=== PATIENT | female | born 1935 | race Caucasian/White ===

== ENCOUNTER 2018-08-24 23:01 | Inpatient (IN) ==
[2018-08-24] MEDS ORDERED: SODIUM CHLORIDE 0.9% 1000ML 500 ML IV ONE (23:15)
[2018-08-24] MEDS ORDERED: ALBUT/IPRATROP 3MG/0.5MG NEB 3 ML VIAL NEB STA (23:15)
[2018-08-24 23:41] LABS: Eosinophils # (auto) 0.18 K/uL (0-0.5); Eosinophils % (auto) 1.8 %; Hematocrit (blood only) 43.4 % (37-47); Hemoglobin 13.5 g/dL (12.0-16.0); Immature Granulocytes # (auto) 0.02 K/uL (0.00-0.02); Immature Granulocytes % (auto) 0.2 %; Lymphocytes # (auto) 0.65 K/uL (1.2-3.4); Lymphocytes % (auto) 6.6 %; Mean Corpuscular Hgb Conc 31.1 g/dL (32-36); Mean Corpuscular Volume 100.5 fL (80-100); Mean Platelet Volume 12.7 fL (7.4-10.4); Monocytes # (auto) 0.69 K/uL (0.11-0.59); Monocytes % (auto) 7.1 %; Neutrophils # (auto) 8.24 K/uL (1.4-6.5); Neutrophils % (auto) 84.3 %; Platelet Count 164 K/uL (130-400); RDW Coefficient of Variation 14.6 % (11.5-14.5); RDW Standard Deviation 53.4 fL (36.4-46.3); Red Blood Count 4.32 M/uL (4.2-5.4); White Blood Count 9.78 K/uL (4.8-10.8)
[2018-08-24 23:55] LABS: Base Excess VBG 7.2 mEq/L; HCO3 VBG 35 mmol/L; Oxygen Saturation VBG 94.7 %; PCO2 VBG 63 mmHg (38-50); PO2 VBG 77 mmHg; pH VBG 7.36 (7.36-7.41)
[2018-08-24 23:55] LABS: INR 1.2 (0.9-1.1)
[2018-08-24 23:59] LABS: Alanine Aminotransferase 13 U/L (12-78); Albumin Level 2.4 gm/dl (3.4-5.0); Aspartate Aminotransferase 17 U/L (15-37); BUN Creatinine Ratio 15.5 (10-20); Bilirubin Direct 0.2 mg/dl (0-0.2); Blood Urea Nitrogen 14 mg/dl (7-18); Calcium 7.8 mg/dl (8.5-10.1); Carbon Dioxide 34 mmol/L (21-32); Chloride 104 mmol/L (98-107); Creatinine Clr Calc Pharmacy 37.8 ml/min; Est GFR (African American) 65.4; Est GFR (Non-African American) 56.4; Glucose 109 mg/dl (70-99); Magnesium 1.8 mg/dl (1.8-2.4); Potassium 3.9 mmol/L (3.5-5.1); Sodium 143 mmol/L (136-145)
[2018-08-25 00:03] LABS: Alkaline Phosphatase 54 U/L (45-117); Bilirubin,Total 0.5 mg/dl (0.2-1); Total Protein 6.4 gm/dl (6.4-8.2)
[2018-08-25 00:13] LABS: Influenza A virus by PCR Neg for Influ A (Neg); Influenza B virus by PCR Neg for Influ B (Neg); NT Pro B Type Natriuretic Pept 9374 pg/ml (0-1800); Troponin I < 0.015 ng/ml (0-0.045)
[2018-08-25 00:58] LABS: Appearance Urine Clear (Clear); Bacteria Urine Automated Negative (Negative); Bilirubin Urine Negative (Negative); Blood Urine Negative (Negative); Color Urine Yellow; Epithelial Cell Urine Auto 20-30 /lpf (0-5); Glucose Urine UA Negative (Negative); Ketones Urine Negative (Negative); Leukocyte Esterase Urine 2+ (Negative); Nitrite Urine Negative (Negative); Protein Urine Negative (Negative); RBC Urine Automated 0-4 /hpf (0-4); Specific Gravity Urine 1.018 (1.000-1.030); Urobilinogen Urine Negative (Negative); WBC Urine Automated >30 /hpf (0-5); pH Urine 6.5 (4.5-7.5)
[2018-08-25] MEDS ORDERED: OPTIRAY 320 125ml IV PRN (01:00)
[2018-08-25 01:18] LABS: Cast Urine Automated 0 /lpf (0-5)
[2018-08-25] MEDS ORDERED: PIPERACILL/TAZOBAC CONSULT ACTIVE PRN ×2 (02:19→02:52)
[2018-08-25] MEDS ORDERED: PIPERACILLIN/TAZOBACTAM 3.375 GM/115 ML BAG IV ONE (02:30)
--- NOTE | 2018-08-25 02:35 | History & Physical Report ---
Date of Service August 25, 2018 Assessment & Plan (1) Pneumonia: Recent influenza A and aspiration pneumonia. Increasing dyspnea. Tonight's chest x-ray and CT demonstrate consolidation of the right lower lobe, loculated right pleural effusion, evidence of aspiration in the right middle lobe and right lower lobe bronchi. Nasal MRSA swab positive. Does not appear to be septic. Rx with doxycycline and IV piperacillin / tazobactam. (2) Pleural effusion: CT demonstrates moderate right loculated pleural effusion. Recent and possibly recurrent pneumonia. May have parapneumonic effusion or empyema. Consult Pulmonary Medicine. (3) Aspiration into airway: Chronic aspiration due to previous strokes. CT tonight suggests aspiration into the right middle lobe and right lower lobe bronchi. Has been evaluated by SEA[employer] MANAGER on multiple occasions. Consideration of PEG placement discussed in the past and patient indicated that she was not interested. She prefers to continue eating and drinking, accepting the risk of aspiration. Continue aspiration precautions, thickened liquids. (4) Chronic respiratory failure with hypoxia, on home O2 therapy: Continue supplemental O2, titrate as necessary. (5) Atrial fibrillation: Rate controlled with metoprolol and amiodarone. Continue anticoagulation with apixaban. (6) Ischemic stroke: History of ischemic strokes. Chronic atrial fibrillation. Continue anticoagulation with apixaban. (7) HTN (hypertension): Continue metoprolol. Follow and titrate therapy. (8) CKD (chronic kidney disease), stage III: Serum creatinine 0.8. Follow. (9) Hypothyroidism: Continue levothyroxine. (10) DVT prophylaxis: Continue apixaban-hold for any invasive procedures. (11) Discharge planning issues: Anticipated return to [facility] under the care of Dr. Hale. History of Present Illness Chief Complaint: cough, SOB Primary Care Provider: [facility] 82-year-old female followed by Dr. Hale at [facility]. History of chronic atrial fibrillation, CHF, stroke, chronic aspiration, and other problems noted below. Admitted to [facility] on 08/11/18 with influenza A and right lower lobe pneumonia. Received oseltamavir for influenza and IV antibiotics for suspected aspiration pneumonia. Patient known to have chronic aspiration due to previous strokes and has undergone evaluation by SEAFOOD MANAGER in the past. She indicated that she is not interested in PEG feedings and preferred to eat and drink with the understanding that she would probably continue to have aspiration. Discharged back to [facility] on 08/15/18 on amoxicillin/clavulanic acid and prednisone taper. Chronic hypoxic respiratory failure, back to baseline oxygen requirement of 2 L/min by time of discharge. Sent to the ED tonight because of cough and increasing shortness of breath. Oxygen flow rate had to be increased to 4 L/min to maintain adequate oxy genation. Patient denies fever. Cough is nonproductive. No chest pain. Patient indicates that she occasionally coughs when she eats and drinks. Allergies Allergy/AdvReac Type Severity Reaction Status Date / Time levofloxacin AdvReac SEE BELOW Verified 08/25/18 00:10 Home Medications Home Medications Medication Instructions Recorded Confirmed Type Desitin 1 applic TOPICAL BID 08/11/18 08/24/18 History acetaminophen 650 mg NH Q6H PRN MDD 2500mg/24hr 08/11/18 08/25/18 History acetaminophen [Tylenol] 325 mg PO Q6H PRN MDD 2gm/24hr 08/11/18 08/25/18 History amiodarone 200 mg PO QAM 08/11/18 08/24/18 History apixaban 2.5 mg PO QAM 08/11/18 08/24/18 History atorvastatin 10 mg PO HS 08/11/18 08/24/18 History denosumab 60 mg SUBCUT Q6M 08/11/18 08/24/18 History diclofenac sodium 1 applic TOPICAL QS 08/11/18 08/24/18 History ergocalciferol (vitamin D2) 50,000 unit PO WK 08/11/18 08/24/18 History [Vitamin D2] ipratropium-albuterol 2.5 mg INHALATION QID 08/11/18 08/24/18 History levothyroxine 75 mcg PO QAM 08/11/18 08/24/18 History metoprolol tartrate 25 mg PO AMHS 08/11/18 08/24/18 History metoprolol tartrate 50 mg PO AMHS 08/11/18 08/24/18 History ranitidine HCl 150 mg PO HS 08/11/18 08/24/18 History sennosides-docusate sodium 1 tab PO BID 08/11/18 08/24/18 History [Senna-S] sertraline 25 mg PO HS 08/11/18 08/24/18 History sodium chloride [Saline Nasal] 2 spray INTRANASAL HS 08/11/18 08/24/18 History terbinafine 1 applic TOPICAL HS 08/11/18 08/24/18 History white petrolatum [Vaseline] 1 applic TOPICAL HS 08/11/18 08/24/18 History prednisone 10 mg PO UD #12 tab 08/15/18 08/24/18 Rx acetaminophen [Tylenol] 325 mg PO Q6H PRN MDD 3g/24hr 08/24/18 08/24/18 History guaifenesin [Siltussin SA] 10 mg PO Q4 PRN 08/24/18 08/24/18 History promethazine 25 mg NH Q8 PRN 08/24/18 08/24/18 History acetaminophen [Tylenol] 650 mg PO Q8 PRN MDD 2000mg/24hr 08/25/18 08/25/18 History albuterol sulfate 2.5 mg CONTINUOUS NEBULIZATION 08/25/18 08/25/18 History .EVERY 2 HOURS PRN alum-mag hydroxide-simeth [Antacid] 30 ml PO Q4 PRN 08/25/18 08/25/18 History amoxicillin 2,000 mg PO UD PRN 08/25/18 08/25/18 History Past Med/Surg History Medical History Chronic respiratory failure with hypoxia, on home O2 therapy (Chronic) CKD (chronic kidney disease), stage III (Chronic) Dementia (Chronic) Depression (Chronic) GERD (gastroesophageal reflux disease) (Chronic) Hypothyroidism (Chronic) Atrial fibrillation (Chronic) HTN (hypertension) (Chronic) Dyslipidemia (Chronic) Aspiration pneumonia (Resolved 07/30/13) Ischemic stroke (Chronic 02/02/12) Aspiration into airway (Chronic) History of breast cancer (Chronic) Bronchitis Surgical History History of breast surgery (Resolved) Status post mastectomy (Chronic) Family History Other Family history non-contributory Social History Preferred Language: Faroese Communication Ability: jose miguel ventura Communication Ability Comment: hx right sided weakness from CVA, Left arm restricted (hx breast CA), 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 Right sided weakness, garbled speech-thick liq) Feels Safe at Home: Yes Safety Concerns: Feels Safe At This Time Smoking Status: Never smoker Hx Alcohol Use: No Hx Substance Use: No Review of Systems Constitutional: no fever Eyes: no diplopia and no worsening vision Ear, Nose, Mouth, Throat: no nasal congestion, no sinus pain/pressure and no sore throat Respiratory: as per Subjective / HPI Cardiovascular: no chest pain and no edema Gastrointestinal: no nausea, no vomiting, no constipation, no diarrhea/loose stools, no blood in stools and no melena Genitourinary (Female): no dysuria and no hematuria Musculoskeletal: + joint pain; no myalgia Integumentary: no rash and no new lesions Neurologic: + localized weakness (residual weakness RUE and RLE from prior strokes); no headache(s) Endocrine: no polydipsia and no polyuria Hematologic / Lymphatic: no easy bleeding, no easy bruising and no lymphadenopathy Physical Exam Vital Signs (Past 24 Hours): Last Vital Signs Temp 36.6 C 08/24/18 23:11 Pulse 92 H 08/25/18 02:23 Resp 22 08/25/18 02:23 BP 144/83 H 08/25/18 02:23 Pulse Ox 98 08/25/18 02:23 Constitutional: + ill appearing and + thin; no acute distress Eyes: PERRL, conjunctivae normal, anicteric sclerae ENMT: external ear and nose normal, oropharynx normal Mouth: no dentition abnormality (poor dentition) Neck: trachea midline, no thyromegaly Respiratory: Auscultation: + crackles (right base) and + wheezes (diffuse, moderate) Cardiovascular: Rate/Rhythm: + abnormal rhythm (irregularly irregular) Heart Sounds: no gallop, no murmur and no cardiac rub Vessels: + JVD; + abnormal peripheral pulses (pedal pulses diminished) Extremities: + abnormal capillary refill (bilat toes 2-3 sec), no calf tenderness and no edema Gastrointestinal (Abdomen): normal bowel sounds, soft, nontender, no hepatosplenomegaly Musculoskeletal: Head/Neck/Chest: neck supple Extremities: + abnormal strength (RUE 4/5, RLE 4/5), no cyanosis and no clubbing Skin: no rashes, warm and dry Neurologic: PERRL, EOMI no facial palsy no dysarthria or aphasia motor strength as noted above patellar DTR's 1/2 bilat plantar reflexes upgoing bilat Psychiatric: Orientation: alert and oriented x 3 Affect: euthymic affect Lymphatic: no cervical lymphadenopathy Results & Data Laboratory Results Laboratory Results - last 24 hr 08/24/18 08/24/18 08/24/18 23:20 23:20 23:20 WBC 9.78 RBC 4.32 Hgb 13.5 Hct 43.4 MCV 100.5 H MCH 31.3 MCHC 31.1 L RDW Std Deviation 53.4 H RDW Coeff of Gregory 14.6 H Plt Count 164 MPV 12.7 H Immature Gran % (Auto) 0.2 Neut % (Auto) 84.3 Lymph % (Auto) 6.6 [place] % (Auto) 7.1 Eos % (Auto) 1.8 Baso % (Auto) 0.0 Immature Gran # (Auto) 0.02 Neut # (Auto) 8.24 H Lymph # (Auto) 0.[address] [place] # (Auto) 0.69 H Eos # (Auto) 0.18 Baso # (Auto) 0.00 PT 12.0 INR 1.2 H VBG pH VBG pCO2 VBG pO2 VBG HCO3 VBG O2 Saturation VBG Base Excess Sodium 143 Potassium 3.9 Chloride 104 Carbon Dioxide 34 H Anion Gap 5.0 BUN 14 Creatinine 0.93 Est Cr Clr Drug Dosing 37.8 Est GFR ( Amer) 65.4 Est GFR (Non-Af Amer) 56.4 BUN/Creatinine Ratio 15.5 Glucose 109 H Lactate Calcium 7.8 L Magnesium 1.8 Total Bilirubin 0.5 Direct Bilirubin 0.2 AST 17 ALT 13 Alkaline Phosphatase 54 Troponin I < 0.015 NT-Pro-B Natriuret Pep 9374 H Total Protein 6.4 Albumin 2.4 L Lipase 91 Urine Color Urine Appearance Urine pH Ur Specific [place] Urine Protein Urine Glucose (UA) Urine Ketones Urine Blood Urine Nitrite Urine Bilirubin Urine Urobilinogen Ur Leukocyte Esterase Urine WBC (Auto) Urine RBC (Auto) U Hyaline Cast (Auto) U Epithel Cells (Auto) Urine Bacteria (Auto) Urine Yeast Influenza Type A (PCR) Influenza Type B (PCR) 03/04/19 03/04/19 03/04/19 23:20 23:20 23:40 WBC RBC Hgb Hct MCV MCH MCHC RDW Std Deviation RDW Coeff of Gregory Plt Count MPV Immature Gran % (Auto) Neut % (Auto) Lymph % (Auto) [place] % (Auto) Eos % (Auto) Baso % (Auto) Immature Gran # (Auto) Neut # (Auto) Lymph # (Auto) [place] # (Auto) Eos # (Auto) Baso # (Auto) PT INR VBG pH 7.36 VBG pCO2 63 H VBG pO2 77 VBG HCO3 35 VBG O2 Saturation 94.7 VBG Base Excess 7.2 Sodium Potassium Chloride Carbon Dioxide Anion Gap BUN Creatinine Est Cr Clr Drug Dosing Est GFR ( Amer) Est GFR (Non-Af Amer) BUN/Creatinine Ratio Glucose Lactate 0.8 Calcium Magnesium Total Bilirubin Direct Bilirubin AST ALT Alkaline Phosphatase Troponin I NT-Pro-B Natriuret Pep Total Protein Albumin Lipase Urine Color Urine Appearance Urine pH Ur Specific [place] Urine Protein Urine Glucose (UA) Urine Ketones Urine Blood Urine Nitrite Urine Bilirubin Urine Urobilinogen Ur Leukocyte Esterase Urine WBC (Auto) Urine RBC (Auto) U Hyaline Cast (Auto) U Epithel Cells (Auto) Urine Bacteria (Auto) Urine Yeast Influenza Type A (PCR) Neg for Influ A Influenza Type B (PCR) Neg for Influ B 08/25/18 00:38 WBC RBC Hgb Hct MCV MCH MCHC RDW Std Deviation RDW Coeff of Gregory Plt Count MPV Immature Gran % (Auto) Neut % (Auto) Lymph % (Auto) [place] % (Auto) Eos % (Auto) Baso % (Auto) Immature Gran # (Auto) Neut # (Auto) Lymph # (Auto) [place] # (Auto) Eos # (Auto) Baso # (Auto) PT INR VBG pH VBG pCO2 VBG pO2 VBG HCO3 VBG O2 Saturation VBG Base Excess Sodium Potassium Chloride Carbon Dioxide Anion Gap BUN Creatinine Est Cr Clr Drug Dosing Est GFR ( Amer) Est GFR (Non-Af Amer) BUN/Creatinine Ratio Glucose Lactate Calcium Magnesium Total Bilirubin Direct Bilirubin AST ALT Alkaline Phosphatase Troponin I NT-Pro-B Natriuret Pep Total Protein Albumin Lipase Urine Color Yellow Urine Appearance Clear Urine pH 6.5 Ur Specific [place] 1.018 Urine Protein Negative Urine Glucose (UA) Negative Urine Ketones Negative Urine Blood Negative Urine Nitrite Negative Urine Bilirubin Negative Urine Urobilinogen Negative Ur Leukocyte Esterase 2+ H Urine WBC (Auto) >30 H Urine RBC (Auto) 0-4 U Hyaline Cast (Auto) 0 U Epithel Cells (Auto) 20-30 H Urine Bacteria (Auto) Negative Urine Yeast Budding w/ Hyphae H Influenza Type A (PCR) Influenza Type B (PCR) Diagnostic Findings Chest x-ray reviewed by the undersigned; formal reading pending: cardiomegaly density right base CTA chest - preliminary interpretation by [facility]: no PE RLL consolidation with air bronchograms reticulonodular pattern in other lobes loculated right pleural effusion fluid in RLL and RML bronchi ECG Additional Comments: EKG performed at 0009 reviewed and demonstrated AF at 98 / min, poor R-wave progression, no acute changes. Code Status & VTE Plan Code Status DNR per patient's wishes. VTE Prophylaxis Plan VTE Prophylaxis will be ordered: Yes (1) Pneumonia Laterality: right Lung location: lower lobe of lung Pneumonia type: due to unspecified organism Qualified Code(s): J18.1 - Lobar pneumonia, unspecified organism
[2018-08-25] MEDS ORDERED: ACETAMINOPHEN 325 MG TAB PO PRN ×2 (02:52)
--- NOTE | 2018-08-25 04:29 | Emergency Department Note ---
Entered by Nate Clement acting as a scribe for ED Provider Note Name: Ivette Chin Age: 82 Arrives Via: EMS Informant: Patient and Nurse CC: Shortness of breath HPI: The patient is an 82 year old female who presents to the Emergency Room from [facility] with complaints of constant shortness of breath that started this evening. She was 88 on room air and has not been eating nor drinking much over the last couple of days. The patient was here 2 weeks ago with pneumonia and is not currently on any antibiotics. She is afebrile with no chest pain, abdominal pain, as well as no nausea, or vomiting. However she does feel dehydrated. Information from the retirement confirms she is not on any anti biotics and her code status is unclear. ROS: See above HPI for pertinent positives & negatives. A total of 10 systems reviewed and were otherwise negative. Past Medical History: PNA, CKD, Dementia, Depression, GERD, HTN, AFib, Dyslipidemia, Ischemic Stroke, CHF, DVT prophylaxis, see chart for complete list. Past Surgical History: Mastectomy Family History: Family history non contributory Social History: Lives at assisted living facility Home Medications: Amiodarone, Albuterol, Metoprolol, Ranitidine, Desitin Allergies Levofloxacin Physical: Vitals: BP: 156/108, TX: 109, RR: 24, Temp: 97.9F, O2 Sat: 96 on NC 4L/min Exam: GENERAL: Patient is severally unwell appearing and gasping for breath. EYES: No scleral icterus, unremarkable pupils. ENT: Mucous membranes severally dry and cracked, no nasal congestion. NECK: No masses appreciated, no meningismus, trachea is midline. RESPIRATORY: Diffuse coarse crackles throughout all lung guzmán with junky cough and mild wheezing. Patient is using abdomen to breath. No rhonchi. CARDIOVASCULAR: Regular rate and rhythm. No murmurs, rubs, gallops appreciated. GASTROINTESTINAL: Abdomen soft, non-tender, no peritonitis. Bowel sounds positive. No masses appreciated. BACK: No midline tenderness, no CVA tenderness EXTREMITIES: Normal motion all extremities, no cyanosis, no edema. NEUROLOGIC: Alert and oriented, no acute motor or sensory deficits, no focal weakness, cranial nerves grossly intact. SKIN: No rash, no jaundice, no diaphoresis. Poor turgor. ED Course: Prior Medical Record, Triage/Nursing Notes, Medications, Allergies reviewed by Me Vital Signs: reviewed and remarkable for Hypoxia Labs: Reviewed and remarkable for mild CO2 retention and elevated BNP Interventions: Saline Lock, Duoneb, NSS bolus 500ML Imaging: X ray results are stated below per my interpretation: Chest: 1 view: Effusion vs mass vs infiltrate RLL, diffuse patchy findings new from previous [facility] Radiologist interpretation reviewed by me: "CTA CHEST: No evidence of pulmonary emboli. No aortic dissection or aneurysm. Cardiomegaly. Small to moderate loculated right pleural effusion. Small left pleural effusion. Consolidation with air bronchograms occupying the entire right lower lobe could represent pneumonia or atelectasis or aspiration. Fluid is noted in the right lower lobe and right middle lobe airways. Reticular nodular opacity with groundglass and peribronchial wall thickening of the remainder of the lungs sug gests multifocal atypical pneumonia. No pneumothorax. Radiologist: Mikala Juares MD" EKG: Very poor baseline. Afib rate of 114, with ectopy, unable to assess for ischemia and unable to compare to previous due to poor baseline Consults: 0020: [facility] the [facility]'s case and he is going to accept her for further evaluation. Reassessments/Times: 2310: Past medical records reviewed. The patient was evaluated in room C08, and a complete history and physical examination were performed. 2343: I reevaluated the patient and she states she is feeling better. Her heart rate is now in the 90s. 0030: I checked on the patient and her heart rate has improved. She also stated that she is continuing to feel better. Blood pressure: Elevated - Referred to PCP - [place] to be Situation. Normal. No Referral necessary Disposition: Hospitalization Differentials: Differential: Sepsis, Infectious (UTI/Pneumonia/Meningitis/etc), Metabolic/Electrolyte Abnormality, Cardiac, Dehydration, Anemia, Hepatic, End ocrine, Toxicologic, Neurologic, amongst other pathologies entertained. Medical Decision Making: Unwell 82 yr old female arrives for evaluation of shorntess of breath who ini tially was a bit confused but much improved after being here a bit. Clearly dehydrated by exam and thus given IV fluids which improved her symptoms. She has large opacification RLL guzmán thus after discussion with hospitalist will get CTA for further eval, and to rule out PE given persistent tachy and her shob/hypoxia. CT with large right loculated pleural effusion and diffuse patchy findings. No fevers, wbc elevation and normal Lactate and she just finished abx course. Reviewed with hospitalist and will defer abx choice to them. Suspect main issue is worsening effusion. She is a bit tachy and afib. While tachy and a bit hypoxic I do not feel this currently represents sepsis. Impression: Pleural Effusion, Left Hypoxia Shortness of Breath Lc Mejía MD The scribe's documentation has been prepared under my direction and personally reviewed by me in its entirety. I confirm that the note above accurately reflects all work, treatment, procedures, and medical decision making performed by me. Impression & Plan Pleural effusion, left, Hypoxia, Shortness of breath Past Med/Surg History Family History Other Family history non-contributory Social History Preferred Language: Norwegian Communication Ability: garbled sp Communication Ability Comment: hx right sided weakness from CVA, Left arm restricted (hx breast CA), Network Diagnostic Support Specialist Required: No Beliefs That Will Affect Care: None marital status: / Current Living Situation: Long-Term Other Information That Helps Us Care for You: Yes (LUE restricted. Right sided weakness, garbled speech-thick liq) Feels Safe at Home: Yes Safety Concerns: Feels Safe At This Time Smoking Status: Never smoker Hx Alcohol Use: No Hx Substance Use: No Results & Data Vital Signs Vital Signs - 24 hr 08/24/18 23:11 08/24/18 23:28 08/24/18 23:31 Temperature 36.6 C Temperature Source Oral Sepsis Recent Fever Within 48 Hours No Sepsis New/Unexplained Change in Mental Status No Sepsis Action Taken by Nursing No Action Required Pulse Rate 109 H Pulse Rate [Bilateral Apical] Pulse Rate [Left Finger] Pulse Rhythm [Left Finger] Pulse Strength [Left Finger] Respiratory Rate 24 Respiratory Effort / Characteristics Labored Spontaneous Accessory Muscle Use Respiratory Depth Shallow Deep Respiratory Pattern Rapid/Deep Blood Pressure 156/108 H Blood Pressure [Left Arm] Blood Pressure [Right Arm] Blood Pressure Mean 124 Blood Pressure Mean [Left Arm] Blood Pressure Mean [Right Arm] Blood Pressure Position Lying Blood Pressure Position [Left Arm] Blood Pressure Position [Right Arm] Pulse Oximetry 88 L 96 Pulse Oximetry [Right Index Finger] Oxygen Delivery Method Room Air Nasal Cannula Oxygen Delivery Method [Right Index Finger] Oxygen Flow Rate 4 Oxygen Flow Rate [Right Index Finger] 08/24/18 23:45 08/25/18 00:58 08/25/18 01:47 Temperature Temperature Source Sepsis Recent Fever Within 48 Hours Sepsis New/Unexplained Change in Mental Status Sepsis Action Taken by Nursing Pulse Rate Pulse Rate [Bilateral Apical] 112 H 98 H 96 H Pulse Rate [Left Finger] Pulse Rhythm [Left Finger] Pulse Strength [Left Finger] Respiratory Rate 22 20 22 Respiratory Effort / Characteristics Respiratory Depth Respiratory Pattern Blood Pressure Blood Pressure [Left Arm] 150/86 H 152/82 H 137/74 Blood Pressure [Right Arm] Blood Pressure Mean Blood Pressure Mean [Left Arm] 107 105 95 Blood Pressure Mean [Right Arm] Blood Pressure Position Blood Pressure Position [Left Arm] Sitting Blood Pressure Position [Right Arm] Pulse Oximetry 99 100 100 Pulse Oximetry [Right Index Finger] Oxygen Delivery Method Nasal Cannula Nasal Cannula Nasal Cannula Oxygen Delivery Method [Right Index Finger] Oxygen Flow Rate 4 4 4 Oxygen Flow Rate [Right Index Finger] 08/25/18 02:23 08/25/18 03:03 08/25/18 03:10 Temperature 37.1 C Temperature Source Oral Sepsis Recent Fever Within 48 Hours Sepsis New/Unexplained Change in Mental Status Sepsis Action Taken by Nursing Pulse Rate Pulse Rate [Bilateral Apical] 92 H Pulse Rate [Left Finger] 95 H Pulse Rhythm [Left Finger] Regular Pulse Strength [Left Finger] Normal Respiratory Rate 22 Respiratory Effort / Characteristics Accessory Muscle Use Labored Short of Breath Respiratory Depth Deep Respiratory Pattern Blood Pressure Blood Pressure [Left Arm] 144/83 H Blood Pressure [Right Arm] 133/85 Blood Pressure Mean Blood Pressure Mean [Left Arm] 103 Blood Pressure Mean [Right Arm] 101 Blood Pressure Position Blood Pressure Position [Left Arm] Blood Pressure Position [Right Arm] Lying Pulse Oximetry 98 98 Pulse Oximetry [Right Index Finger] Oxygen Delivery Method Nasal Cannula Nasal Cannula Nasal Cannula Oxygen Delivery Method [Right Index Finger] Oxygen Flow Rate 4 2 2 Oxygen Flow Rate [Right Index Finger] 08/25/18 03:21 Temperature Temperature Source Sepsis Recent Fever Within 48 Hours Sepsis New/Unexplained Change in Mental Status Sepsis Action Taken by Nursing Pulse Rate Pulse Rate [Bilateral Apical] Pulse Rate [Left Finger] Pulse Rhythm [Left Finger] Pulse Strength [Left Finger] Respiratory Rate Respiratory Effort / Characteristics Respiratory Depth Respiratory Pattern Blood Pressure Blood Pressure [Left Arm] Blood Pressure [Right Arm] Blood Pressure Mean Blood Pressure Mean [Left Arm] Blood Pressure Mean [Right Arm] Blood Pressure Position Blood Pressure Position [Left Arm] Blood Pressure Position [Right Arm] Pulse Oximetry Pulse Oximetry [Right Index Finger] 98 Oxygen Delivery Method Oxygen Delivery Method [Right Index Finger] Nasal Cannula Oxygen Flow Rate Oxygen Flow Rate [Right Index Finger] 2 Laboratory Data Result diagrams: 08/24/18 23:20 08/24/18 23:20 Lab Results 08/24/18 08/24/18 08/24/18 Range/Units 23:20 23:20 23:20 WBC 9.78 (4.8-10.8) K/uL RBC 4.32 (4.2-5.4) M/uL Hgb 13.5 (12.0-16.0) g/dL Hct 43.4 (37-47) % MCV 100.5 H (80-100) fL MCH 31.3 (25-34) pg MCHC 31.1 L (32-36) g/dL RDW Std Deviation 53.4 H (36.4-46.3) fL RDW Coeff of Gregory 14.6 H (11.5-14.5) % Plt Count 164 (130-400) K/uL MPV 12.7 H (7.4-10.4) fL Immature Gran % (Auto) 0.2 % Neut % (Auto) 84.3 % Lymph % (Auto) 6.6 % [place] % (Auto) 7.1 % Eos % (Auto) 1.8 % Baso % (Auto) 0.0 % Immature Gran # (Auto) 0.02 (0.00-0.02) K/uL Neut # (Auto) 8.24 H (1.4-6.5) K/uL Lymph # (Auto) 0.65 L (1.2-3.4) K/uL [place] # (Auto) 0.69 H (0.11-0.59) K/uL Eos # (Auto) 0.18 (0-0.5) K/uL Baso # (Auto) 0.00 (0-0.2) K/uL PT 12.0 (9.0-12.0) Seconds INR 1.2 H (0.9-1.1) VBG pH (7.36-7.41) VBG pCO2 (38-50) mmHg VBG pO2 mmHg VBG HCO3 mmol/L VBG O2 Saturation % VBG Base Excess mEq/L Sodium 143 (136-145) mmol/L Potassium 3.9 (3.5-5.1) mmol/L Chloride 104 (98-107) mmol/L Carbon Dioxide 34 H (21-32) mmol/L Anion Gap 5.0 (3-11) BUN 14 (7-18) mg/dl Creatinine 0.93 (0.6-1.2) mg/dl Est Cr Clr Drug Dosing 37.8 ml/min Est GFR ( Amer) 65.4 Est GFR (Non-Af Amer) 56.4 BUN/Creatinine Ratio 15.5 (10-20) Glucose 109 H (70-99) mg/dl Lactate (0.4-2.0) mmol/L Calcium 7.8 L (8.5-10.1) mg/dl Magnesium 1.8 (1.8-2.4) mg/dl Total Bilirubin 0.5 (0.2-1) mg/dl Direct Bilirubin 0.2 (0-0.2) mg/dl AST 17 (15-37) U/L ALT 13 (12-78) U/L Alkaline Phosphatase 54 (45-117) U/L Troponin I < 0.015 (0-0.045) ng/ml NT-Pro-B Natriuret Pep 9374 H (0-1800) pg/ml Total Protein 6.4 (6.4-8.2) gm/dl Albumin 2.4 L (3.4-5.0) gm/dl Lipase 91 (73-393) U/L Urine Color Urine Appearance (Clear) Urine pH (4.5-7.5) Ur Specific Urania (1.000-1.030) Urine Protein (Negative) Urine Glucose (UA) (Negative) Urine Ketones (Negative) Urine Blood (Negative) Urine Nitrite (Negative) Urine Bilirubin (Negative) Urine Urobilinogen (Negative) Ur Leukocyte Esterase (Negative) Urine WBC (Auto) (0-5) /hpf Urine RBC (Auto) (0-4) /hpf U Hyaline Cast (Auto) (0-5) /lpf U Epithel Cells (Auto) (0-5) /lpf Urine Bacteria (Auto) (Negative) Urine Yeast (None Prsent) Influenza Type A (PCR) (Neg) Influenza Type B (PCR) (Neg) 08/24/18 08/24/18 08/24/18 Range/Units 23:20 23:20 23:40 WBC (4.8-10.8) K/uL RBC (4.2-5.4) M/uL Hgb (12.0-16.0) g/dL Hct (37-47) % MCV (80-100) fL MCH (25-34) pg MCHC (32-36) g/dL RDW Std Deviation (36.4-46.3) fL RDW Coeff of Gregory (11.5-14.5) % Plt Count (130-400) K/uL MPV (7.4-10.4) fL Immature Gran % (Auto) % Neut % (Auto) % Lymph % (Auto) % [place] % (Auto) % Eos % (Auto) % Baso % (Auto) % Immature Gran # (Auto) (0.00-0.02) K/uL Neut # (Auto) (1.4-6.5) K/uL Lymph # (Auto) (1.2-3.4) K/uL [place] # (Auto) (0.11-0.59) K/uL Eos # (Auto) (0-0.5) K/uL Baso # (Auto) (0-0.2) K/uL PT (9.0-12.0) Seconds INR (0.9-1.1) VBG pH 7.36 (7.36-7.41) VBG pCO2 63 H (38-50) mmHg VBG pO2 77 mmHg VBG HCO3 35 mmol/L VBG O2 Saturation 94.7 % VBG Base Excess 7.2 mEq/L Sodium (136-145) mmol/L Potassium (3.5-5.1) mmol/L Chloride (98-107) mmol/L Carbon Dioxide (21-32) mmol/L Anion Gap (3-11) BUN (7-18) mg/dl Creatinine (0.6-1.2) mg/dl Est Cr Clr Drug Dosing ml/min Est GFR ( Amer) Est GFR (Non-Af Amer) BUN/Creatinine Ratio (10-20) Glucose (70-99) mg/dl Lactate 0.8 (0.4-2.0) mmol/L Calcium (8.5-10.1) mg/dl Magnesium (1.8-2.4) mg/dl Total Bilirubin (0.2-1) mg/dl Direct Bilirubin (0-0.2) mg/dl AST (15-37) U/L ALT (12-78) U/L Alkaline Phosphatase (45-117) U/L Troponin I (0-0.045) ng/ml NT-Pro-B Natriuret Pep (0-1800) pg/ml Total Protein (6.4-8.2) gm/dl Albumin (3.4-5.0) gm/dl Lipase (73-393) U/L Urine Color Urine Appearance (Clear) Urine pH (4.5-7.5) Ur Specific Urania (1.000-1.030) Urine Protein (Negative) Urine Glucose (UA) (Negative) Urine Ketones (Negative) Urine Blood (Negative) Urine Nitrite (Negative) Urine Bilirubin (Negative) Urine Urobilinogen (Negative) Ur Leukocyte Esterase (Negative) Urine WBC (Auto) (0-5) /hpf Urine RBC (Auto) (0-4) /hpf U Hyaline Cast (Auto) (0-5) /lpf U Epithel Cells (Auto) (0-5) /lpf Urine Bacteria (Auto) (Negative) Urine Yeast (None Prsent) Influenza Type A (PCR) Neg for Influ A (Neg) Influenza Type B (PCR) Neg for Influ B (Neg) 08/25/18 Range/Units 00:38 WBC (4.8-10.8) K/uL RBC (4.2-5.4) M/uL Hgb (12.0-16.0) g/dL Hct (37-47) % MCV (80-100) fL MCH (25-34) pg MCHC (32-36) g/dL RDW Std Deviation (36.4-46.3) fL RDW Coeff of Gregory (11.5-14.5) % Plt Count (130-400) K/uL MPV (7.4-10.4) fL Immature Gran % (Auto) % Neut % (Auto) % Lymph % (Auto) % [place] % (Auto) % Eos % (Auto) % Baso % (Auto) % Immature Gran # (Auto) (0.00-0.02) K/uL Neut # (Auto) (1.4-6.5) K/uL Lymph # (Auto) (1.2-3.4) K/uL [place] # (Auto) (0.11-0.59) K/uL Eos # (Auto) (0-0.5) K/uL Baso # (Auto) (0-0.2) K/uL PT (9.0-12.0) Seconds INR (0.9-1.1) VBG pH (7.36-7.41) VBG pCO2 (38-50) mmHg VBG pO2 mmHg VBG HCO3 mmol/L VBG O2 Saturation % VBG Base Excess mEq/L Sodium (136-145) mmol/L Potassium (3.5-5.1) mmol/L Chloride (98-107) mmol/L Carbon Dioxide (21-32) mmol/L Anion Gap (3-11) BUN (7-18) mg/dl Creatinine (0.6-1.2) mg/dl Est Cr Clr Drug Dosing ml/min Est GFR ( Amer) Est GFR (Non-Af Amer) BUN/Creatinine Ratio (10-20) Glucose (70-99) mg/dl Lactate (0.4-2.0) mmol/L Calcium (8.5-10.1) mg/dl Magnesium (1.8-2.4) mg/dl Total Bilirubin (0.2-1) mg/dl Direct Bilirubin (0-0.2) mg/dl AST (15-37) U/L ALT (12-78) U/L Alkaline Phosphatase (45-117) U/L Troponin I (0-0.045) ng/ml NT-Pro-B Natriuret Pep (0-1800) pg/ml Total Protein (6.4-8.2) gm/dl Albumin (3.4-5.0) gm/dl Lipase (73-393) U/L Urine Color Yellow Urine Appearance Clear (Clear) Urine pH 6.5 (4.5-7.5) Ur Specific Urania 1.018 (1.000-1.030) Urine Protein Negative (Negative) Urine Glucose (UA) Negative (Negative) Urine Ketones Negative (Negative) Urine Blood Negative (Negative) Urine Nitrite Negative (Negative) Urine Bilirubin Negative (Negative) Urine Urobilinogen Negative (Negative) Ur Leukocyte Esterase 2+ H (Negative) Urine WBC (Auto) >30 H (0-5) /hpf Urine RBC (Auto) 0-4 (0-4) /hpf U Hyaline Cast (Auto) 0 (0-5) /lpf U Epithel Cells (Auto) 20-30 H (0-5) /lpf Urine Bacteria (Auto) Negative (Negative) Urine Yeast Budding w/ Hyphae H (None Prsent) Influenza Type A (PCR) (Neg) Influenza Type B (PCR) (Neg) Administered Medications Ioversol (Optiray 320 125ml) 125 ml IV ONCE PRN PRN Reason: Interaction Checking Stop: 08/29/18 00:59 Last Admin: 08/25/18 01:00 Dose: 107 ml Documented by: [id number] Discontinued Medications Albuterol (Duoneb) 3 ml NEB NOW STA Stop: 08/24/18 23:16 Last Admin: 08/24/18 23:45 Dose: 3 ml Documented by: [id number] Sodium Chloride (Nss 1000ml) 500 mls @ 999 mls/hr IV .Q31M ONE Stop: 08/24/18 23:45 Last Infusion: 08/25/18 00:18 Dose: 0 mls/hr Documented by: [id number] Admin: 08/24/18 23:45 Dose: 999 mls/hr Documented by: [id number] Piperacillin Sod/Tazobactam Sod (Zosyn) 3.375 gm in 115 mls @ 230 mls/hr IV NOW ONE Stop: 08/25/18 02:59 Last Infusion: 08/25/18 03:09 Dose: 0 mls/hr Documented by: [id number] Admin: 08/25/18 02:29 Dose: 230 mls/hr Documented by: [id number] Discharge Plan Visit Data *Final* Discharge Date/Time: 08/25/18 02:25 Chief Complaint: Shortness of Breath/Dyspnea ED Provider: Lc Mejía Discharge Problem: Pleural effusion, left, Hypoxia, Shortness of breath Patient Disposition: Admitted As Inpatient Discharge Instructions Interventions: ED Discharge Assessment Last Done: 08/25/18 02:25 The scribe's documentation has been prepared under my direction and personally reviewed by me in its entirety. I confirm that the note above accurately reflects all work, treatment, procedures, and medical decision making performed by me.
[2018-08-25] MEDS: DOXYCYCLINE HYCLATE 100 MG CAP PO SCH ×2 (05:08→20:17)
[2018-08-25] MEDS: PIPERACILLIN/TAZOBACTAM 3.375 GM in DEXTROSE 5% 100 ML IV SCH ×3 (06:03→21:22)
--- NOTE | 2018-08-25 06:16 | XRay Report ---
XR chest 1V portable CLINICAL HISTORY: SHOB dyspnea COMPARISON STUDY: 08/11/2018 FINDINGS: Slightly progressive right basilar parenchymal infiltrate and small right effusion. Underly ing components of pulmonary vascular congestion. Mild stable cardiomegaly. IMPRESSION: Mildly progressive right basilar infiltrative and pleural effusion change. Unchanging pu lmonary vascular congestion. The above report was generated using voice recognition software. It may contain grammatical, syntax or spelling errors. Electronically signed by: Enoch Kemp M.D. 08/25/2018 6:13 AM
[2018-08-25] MEDS: LEVOTHYROXINE SODIUM 75 MCG TABLET PO SCH (06:31)
--- NOTE | 2018-08-25 06:48 | CT Scan Report ---
CT angio chest PE protocol CT DOSE: 314.21 mGy.cm HISTORY: Chest pain. Dyspnea. PE TECHNIQUE: Multiaxial CT images of the chest were performed following the intravenous administration of contrast to evaluate the pulmonary arteries. Maximal intensity projection images were also obtaine d. A dose lowering technique was utilized adhering to the principles of ALARA. COMPARISON STUDY: 08/17/2012 FINDINGS: Thoracic aorta is normal in course and caliber. Pulmonary vasculature enhances appropriatel y. There are no major filling defects. There are progressive peribronchial prominence throughout both hemithoraces. Complete right lower lob e atelectatic change. There are small bilateral pleural effusions. There is developing mediastinal adenopathy. IMPRESSION: 1. No evidence of pulmonary embolus. 2. Consolidative infiltrate right lower lobe. 3. Small bilateral pleural effusions. 4. Moderate generalized peribronchial thickening. 5. The above report was generated using voice recognition software. It may contain grammatical, syntax or spelling errors. Electronically signed by: Enoch Kemp M.D. 08/25/2018 6:47 AM
[2018-08-25] MEDS: ALBUT/IPRATROP 3MG/0.5MG NEB 3 ML VIAL INH SCH ×4 (07:26→19:24)
[2018-08-25] MEDS ORDERED: APIXABAN 2.5 MG TAB PO SCH (09:00)
[2018-08-25] MEDS: BUTT PASTE (ZINC OXIDE 16%) 171 APPLN/57 GM JAR EXT SCH ×2 (09:26→20:08)
[2018-08-25] MEDS: METOPROLOL TARTRATE 25 MG TAB PO SCH ×2 (09:27→20:13)
[2018-08-25] MEDS: DICLOFENAC SOD 1% GEL 100 GM TUBE EXT SCH ×3 (09:27→23:06)
[2018-08-25] MEDS: DOCUSATE SODIUM/SENNA 50/8.6MG TAB PO SCH ×2 (09:28→20:17)
[2018-08-25] MEDS: METOPROLOL TARTRATE 50 MG TAB PO SCH ×2 (09:28→20:15)
[2018-08-25] MEDS: methylPREDNISolone 20 MG in SYRINGE 0 ML IV SCH ×2 (09:28→20:19)
[2018-08-25] MEDS: AMIODARONE 200 MG TAB PO SCH (09:29)
--- NOTE | 2018-08-25 12:02 | Hospitalist Progress Note ---
Date of Service August 25, 2018 Assessment & Plan (1) Pneumonia: Cont Zosyn and doxycycline pending culture results and clinical improvment. (2) Aspiration into airway: Chronic aspiration due to previous strokes. CT tonight suggests aspiration into the right middle lobe and right lower lobe bronchi. Has been evaluated by [employer] on multiple occasions. Consideration of PEG placement discussed in the past and patient indicated that she was not interested. She prefers to continue eating and drinking, accepting the risk of aspiration. Continue aspiration precautions, thickened liquids. (3) Chronic respiratory failure with hypoxia, on home O2 therapy: Continue supplemental O2, titrate as necessary. (4) Atrial fibrillation: Rate controlled with metoprolol and amiodarone. Continue anticoagulation with apixaban. (5) Ischemic stroke: History of ischemic strokes. Chronic atrial fibrillation. Continue anticoagulation with apixaban. (6) HTN (hypertension): controlled (7) CKD (chronic kidney disease), stage III: Serum creatinine 0.8. Follow. (8) Hypothyroidism: Continue levothyroxine. (9) DVT prophylaxis: Continue apixaban-hold for any invasive procedures. Subjective doing well breathing at baseline some cough present she is aware she is aspirating Physical Exam Vital Signs (Past 24 Hours): Last Vital Signs Temp 36.5 C 08/25/18 11:52 Pulse 88 08/25/18 11:52 Resp 20 08/25/18 11:52 BP 109/67 08/25/18 11:52 Pulse Ox 100 08/25/18 11:52 CONSTITUTIONAL: fragile, frail, elderly, vitals as above, generally well- appearing EYES: normal conjuctivae, no scleral icterus ENT: MMM RESPIRATORY: clear to auscultation bilaterally, no crackles, rales or wheezes, normal respiratory effort CARDIOVASCULAR: regular rate and rhythm, S1 and 2 heard without murmurs, gallops or rubs, no JVD, no peripheral edema GASTROINTESTINAL: normal bowel sounds, soft, nontender, no hepatomegaly, no guarding MUSCULOSKELETAL: generalized weakness, head is normocephalic and atraumatic, neck supple, normal palpation of chest wall without tenderness SKIN: warm and dry, no rashes NEUROLOGIC: s/p stroke with some facial palsy and dysarthriat at baseline. PSYCHIATRIC: alert cooperative Results & Data Laboratory Results Short CBC 08/24/18 Range/Units 23:20 WBC 9.78 (4.8-10.8) K/uL Hgb 13.5 (12.0-16.0) g/dL Hct 43.4 (37-47) % Plt Count 164 (130-400) K/uL BMP 08/24/18 23:20 Sodium 143 Potassium 3.9 Chloride 104 Carbon Dioxide 34 H BUN 14 Creatinine 0.93 Glucose 109 H Calcium 7.8 L Cardiac Enzymes 08/24/18 Range/Units 23:20 Troponin I < 0.015 (0-0.045) ng/ml Liver Function 08/24/18 Range/Units 23:20 Total Bilirubin 0.5 (0.2-1) mg/dl Direct Bilirubin 0.2 (0-0.2) mg/dl AST 17 (15-37) U/L ALT 13 (12-78) U/L Alkaline Phosphatase 54 (45-117) U/L Albumin 2.4 L (3.4-5.0) gm/dl Urine 08/25/18 Range/Units 00:38 Urine Color Yellow Urine Appearance Clear (Clear) Urine pH 6.5 (4.5-7.5) Ur Specific [place] 1.018 (1.000-1.030) Urine Protein Negative (Negative) Urine Glucose (UA) Negative (Negative) Medications Administered Current Inpatient Medications Acetaminophen (Tylenol) 325 mg PO Q6H PRN PRN Reason: mild to mod pain Stop: 09/24/18 02:51 Acetaminophen (Tylenol) 325 mg PO Q6H PRN PRN Reason: temp>100 Stop: 09/24/18 02:51 Albuterol (Duoneb) 3 ml INH QIDR [facility] Stop: 09/24/18 07:59 Last Admin: 08/25/18 07:26 Dose: 3 ml Documented by: Amiodarone HCl (Cordarone) 200 mg PO [facility] Stop: 09/24/18 08:59 Last Admin: 08/25/18 09:29 Dose: 200 mg Documented by: Apixaban (Eliquis) 2.5 mg PO [facility]; Protocol Stop: 09/24/18 08:59 Last Admin: 08/25/18 09:29 Dose: 2.5 mg Documented by: Atorvastatin Calcium (Lipitor) 10 mg PO [facility] Stop: 09/24/18 20:59 Diclofenac Sodium (Voltaren 1% Top) 1 appln EXT QS [facility] Stop: 09/24/18 07:59 Last Admin: 08/25/18 09:27 Dose: 1 appln Documented by: Doxycycline Hyclate (Vibramycin) 100 mg PO BID [facility] Stop: 09/01/18 04:59 Last Admin: 08/25/18 05:08 Dose: 100 mg Documented by: Methylprednisolone 20 mg/ (Syringe) 0.32 mls @ 1.5 mls/min IV BID [facility] Stop: 09/24/18 08:59 Last Admin: 08/25/18 09:28 Dose: 1.5 mls/min Documented by: Piperacillin Sod/Tazobactam (Sod 3.375 gm/ Dextrose) 115 mls @ 28.75 mls/hr IV Q8H [facility] Stop: 09/01/18 02:51 Last Infusion: 08/25/18 10:07 Dose: Infused Documented by: Ioversol (Optiray 320 125ml) 125 ml IV ONCE PRN PRN Reason: Interaction Checking Stop: 08/29/18 00:59 Last Admin: 08/25/18 01:00 Dose: 107 ml Documented by: Levothyroxine Sodium (Synthroid) 75 mcg PO DAILYBB [facility] Stop: 09/24/18 06:29 Last Admin: 08/25/18 06:31 Dose: 75 mcg Documented by: Metoprolol Tartrate (Lopressor) 25 mg PO [facility] Stop: 09/24/18 08:59 Last Admin: 08/25/18 09:27 Dose: 25 mg Documented by: Metoprolol Tartrate (Lopressor) 50 mg PO [facility] Stop: 09/24/18 08:59 Last Admin: 08/25/18 09:28 Dose: 50 mg Documented by: Miscellaneous (Order Awaiting Action) 1 ea N/A QS [facility] Stop: 09/24/18 07:59 Last Admin: 08/25/18 08:46 Dose: Not Given Documented by: Miscellaneous Information (Consult) 1 ea N/A UD PRN PRN Reason: Consult Stop: 09/24/18 02:18 Petrolatum (Butt Paste) 1 appln EXT BID [facility] Stop: 09/24/18 08:59 Last Admin: 08/25/18 09:26 Dose: 1 appln Documented by: Ranitidine HCl (Zantac) 150 mg PO HS [facility] Stop: 09/24/18 20:59 Senna/Docusate Sodium (Senokot S) 1 tab PO BID [facility] Stop: 09/24/18 08:59 Last Admin: 08/25/18 09:28 Dose: 1 tab Documented by: Sertraline HCl (Zoloft) 25 mg PO HS [facility] Stop: 09/24/18 20:59 Sodium Chloride ([place] Nasal) 2 sprays NA HS [facility] Stop: 09/24/18 20:59 Terbinafine HCl (Lamisil At) 1 appln EXT HS [facility] Stop: 09/24/18 20:59 (1) Pneumonia Laterality: right Lung location: lower lobe of lung Pneumonia type: due to unspecified organism Qualified Code(s): J18.1 - Lobar pneumonia, unspecified organism
--- NOTE | 2018-08-25 17:17 | Pulmonary Consultation ---
Date of Consultation August 25, 2018 Assessment & Plan (1) Aspiration pneumonia: I have reviewed her chest x-ray as well as CT scan of the chest and also previous records. The patient has been chronically aspirating. She has also presented in the past with similar symptoms and similar findings on chest x-ray. We also tried to localize the pleural effusion with ultrasound but there was no enough fluid to put the needle in so that we can send it for examination. She has got significant right lower lobe consolidation possibly related to her chronic aspiration. She was also recommended for PEG placement which she has refused. We also discussed about the bronchoscopy which also she is not in favor of at this time but certainly if she goes for bronchoscopy she will end up on a breathing machine. At this stage I feel that she is chronically at the risk of aspiration and repeat episodes of chronic aspiration pneumonia. We do not have much to help her and we had a long discussion with the patient and also explained to her about all kind of therapy including bronchoscopy as well as chest PT with Mucomyst and also back placement. We are going to continue with the Mucomyst and a chest PT and I have also discuss with the respiratory therapist. In the meantime we are going to continue with all other management including aspiration precaution as well as antibiotics and nebulizer treatment. I have discussed the case with primary care the referring physician Cassandra Cooper. Thank you very much for allowing us to participate in the care of your patient. If you have got any further questions please do not hesitate to contact us and we will follow this case with you thank you. (2) Chronic respiratory failure with hypoxia, on home O2 therapy: (3) Pleural effusion: (4) Atrial fibrillation: History of Present Illness Reason for Consultation: Right lower lobe pneumonia and pleural effusion. Possibility of right loculated effusion/empyema. Attending Physician: Lisy Garcia DO History of Present Illness 82-year-old female who was brought into the hospital with right lower lobe pneumonia/right-sided pleural effusion. The patient carries the diagnosis of chronic atrial fibrillation as well as congestive heart failure chronic aspiration and stroke. Initially she was admitted in July on the with influenza A and right lower lobe pneumonia and she was treated for that. She has been also chronically aspirating and she has got persistent right lower lobe pneumonia. According to the patient every time she tried to eat or drink she coughs a lot and gets short of breath. Because of her chronic aspiration and pneumonia she was recommended to have PEG which she has refused. Currently she is on 2 L of oxygen via nasal cannula. She has been also complaining of chronic cough but not able to clear any secretions. She has been also complaining of shortness of breath. She is very weak. Allergies Allergy/AdvReac Type Severity Reaction Status Date / Time levofloxacin AdvReac SEE BELOW Verified 08/25/18 00:10 Home Medications Home Medications Medication Instructions Recorded Confirmed Type Desitin 1 applic TOPICAL BID 08/11/18 08/24/18 History acetaminophen 650 mg [place] Q6H PRN MDD 2500mg/24hr 08/11/18 08/25/18 History acetaminophen [Tylenol] 325 mg PO Q6H PRN MDD 2gm/24hr 08/11/18 08/25/18 History amiodarone 200 mg PO QAM 08/11/18 08/24/18 History apixaban 2.5 mg PO QAM 08/11/18 08/24/18 History atorvastatin 10 mg PO HS 08/11/18 08/24/18 History denosumab 60 mg SUBCUT Q6M 08/11/18 08/24/18 History diclofenac sodium 1 applic TOPICAL QS 08/11/18 08/24/18 History ergocalciferol (vitamin D2) 50,000 unit PO WK 08/11/18 08/24/18 History [Vitamin D2] ipratropium-albuterol 2.5 mg INHALATION QID 08/11/18 08/24/18 History levothyroxine 75 mcg PO QAM 08/11/18 08/24/18 History metoprolol tartrate 25 mg PO [facility] 08/11/18 08/24/18 History metoprolol tartrate 50 mg PO [facility] 08/11/18 08/24/18 History ranitidine HCl 150 mg PO HS 08/11/18 08/24/18 History sennosides-docusate sodium 1 tab PO BID 08/11/18 08/24/18 History [Senna-S] sertraline 25 mg PO HS 08/11/18 08/24/18 History sodium chloride [Saline Nasal] 2 spray INTRANASAL HS 08/11/18 08/24/18 History terbinafine 1 applic TOPICAL HS 08/11/18 08/24/18 History white petrolatum [Vaseline] 1 applic TOPICAL HS 08/11/18 08/24/18 History prednisone 10 mg PO UD #12 tab 08/15/18 08/24/18 Rx acetaminophen [Tylenol] 325 mg PO Q6H PRN MDD 3g/24hr 08/24/18 08/24/18 History guaifenesin [Siltussin SA] 10 mg PO Q4 PRN 08/24/18 08/24/18 History promethazine 25 mg [place] Q8 PRN 08/24/18 08/24/18 History acetaminophen [Tylenol] 650 mg PO Q8 PRN MDD 2000mg/24hr 08/25/18 08/25/18 History albuterol sulfate 2.5 mg CONTINUOUS NEBULIZATION 08/25/18 08/25/18 History .EVERY 2 HOURS PRN alum-mag hydroxide-simeth [Antacid] 30 ml PO Q4 PRN 08/25/18 08/25/18 History amoxicillin 2,000 mg PO UD PRN 08/25/18 08/25/18 History Patient History Medical History Chronic respiratory failure with hypoxia, on home O2 therapy (Chronic) CKD (chronic kidney disease), stage III (Chronic) Dementia (Chronic) Depression (Chronic) GERD (gastroesophageal reflux disease) (Chronic) Hypothyroidism (Chronic) Atrial fibrillation (Chronic) HTN (hypertension) (Chronic) Dyslipidemia (Chronic) Aspiration pneumonia (Resolved 07/30/13) Ischemic stroke (Chronic 02/02/12) Aspiration into airway (Chronic) History of breast cancer (Chronic) Bronchitis Surgical History History of breast surgery (Resolved) Status post mastectomy (Chronic) Family History Other Family history non-contributory Social History Preferred Language: Japanese Communication Ability: jose miguel ventura Communication Ability Comment: hx right sided weakness from CVA, Left arm restricted (hx breast CA), Brake Reliner Required: No Beliefs That Will Affect Care: None marital status: / Current Living Situation: Halfway Other Information That Helps Us Care for You: Yes (LUE restricted. Right sided weakness, garbled speech-thick liq) Feels Safe at Home: Yes Safety Concerns: Feels Safe At This Time Smoking Status: Never smoker Hx Alcohol Use: No Hx Substance Use: No Review of Systems Constitutional: no fever Eyes: no diplopia and no worsening vision Ear, Nose, Mouth, Throat: no nasal congestion, no sinus pain/pressure and no sore throat Respiratory: as per Subjective / HPI Cardiovascular: no chest pain and no edema Gastrointestinal: no nausea, no vomiting, no constipation, no diarrhea/loose stools, no blood in stools and no melena Genitourinary (Female): no dysuria and no hematuria Musculoskeletal: + joint pain; no myalgia Integumentary: no rash and no new lesions Neurologic: + localized weakness (residual weakness RUE and RLE from prior strokes); no headache(s) Endocrine: no polydipsia and no polyuria Hematologic / Lymphatic: no easy bleeding, no easy bruising and no lymphadenopathy Physical Exam Vital Signs (Past 24 Hours): Last Vital Signs Temp 36.9 C 08/25/18 14:58 Pulse 87 08/25/18 16:00 Resp 18 08/25/18 15:22 BP 115/77 08/25/18 14:58 Pulse Ox 96 08/25/18 15:22 Physical Exam: Elderly female lying in the bed not in any acute distress but she is thin and very weak and not able to move without any help. HEENT: PERRL. Anicteric sclera, conjunctiva is normal. Pupils equally reactive to light. NECK: The neck is supple. There is no jugular venous distention. No supraclavicular or cervical lymphadenopathy. RESPIRATORY: Bilateral air entry with coarse breathing and diffuse crackles bilaterally. The patient also has some scattered rhonchi and some expiratory wheezes. Dullness on percussion at the right base. CARDIOVASCULAR: The patient has irregularly irregular heart rhythm no murmur appreciated. GASTROINTESTINAL: The abdomen is soft, nontender, bowel sounds are positive and no hepatosplenomegaly. EXTREMITIES: No clubbing, no cyanosis, no edema. Nontender calf muscles. NEUROLOGIC: The patient is alert awake and oriented. She is very weak to respond but responds appropriately. She is also moving all extremities. Results & Data Laboratory Results Abnormal lab results 08/24/18 08/24/18 08/24/18 Range/Units 23:20 23:20 23:20 MCV 100.5 H (80-100) fL MCHC 31.1 L (32-36) g/dL RDW Std Deviation 53.4 H (36.4-46.3) fL RDW Coeff of Gregory 14.6 H (11.5-14.5) % MPV 12.7 H (7.4-10.4) fL Neut # (Auto) 8.24 H (1.4-6.5) K/uL Lymph # (Auto) 0.65 L (1.2-3.4) K/uL Clarke # (Auto) 0.69 H (0.11-0.59) K/uL INR 1.2 H (0.9-1.1) VBG pCO2 (38-50) mmHg Carbon Dioxide 34 H (21-32) mmol/L Glucose 109 H (70-99) mg/dl Calcium 7.8 L (8.5-10.1) mg/dl NT-Pro-B Natriuret Pep 9374 H (0-1800) pg/ml Albumin 2.4 L (3.4-5.0) gm/dl Ur Leukocyte Esterase (Negative) Urine WBC (Auto) (0-5) /hpf U Epithel Cells (Auto) (0-5) /lpf Urine Yeast (None Prsent) Nasal Screen MRSA (PCR) (Negative) 08/24/18 08/25/18 08/25/18 Range/Units 23:40 00:38 Unknown MCV (80-100) fL MCHC (32-36) g/dL RDW Std Deviation (36.4-46.3) fL RDW Coeff of Gregory (11.5-14.5) % MPV (7.4-10.4) fL Neut # (Auto) (1.4-6.5) K/uL Lymph # (Auto) (1.2-3.4) K/uL Clarke # (Auto) (0.11-0.59) K/uL INR (0.9-1.1) VBG pCO2 63 H (38-50) mmHg Carbon Dioxide (21-32) mmol/L Glucose (70-99) mg/dl Calcium (8.5-10.1) mg/dl NT-Pro-B Natriuret Pep (0-1800) pg/ml Albumin (3.4-5.0) gm/dl Ur Leukocyte Esterase 2+ H (Negative) Urine WBC (Auto) >30 H (0-5) /hpf U Epithel Cells (Auto) 20-30 H (0-5) /lpf Urine Yeast Budding w/ Hyphae H (None Prsent) Nasal Screen MRSA (PCR) Positive A (Negative) Diagnostic Findings [place], [place] [phone] CT Scan Report Patient: FRANCY BRANDON Date: 08/25/18 MR#: [id number]: 100 LEONEL Acct ID:[id number]: [facility] Zip[facility] [place] [address] Age: 82Location: 2N Sex: F Room/Bed: [facility] Att Phy: Lisy Garcia, DODiagnosis: HYPOXIA Demetria Phy: Lyla Coats VillageService Date: 08/25/18 Fam Phy: Flora Hale M.D.Interpreting Phy: Enoch Kemp MD Admit Phy: Trace Jackson MD Ordering Phy: Lc Mejía M.D. cc: ~ CT angio chest PE protocol CT DOSE: 314.21 mGy.cm HISTORY: Chest pain. Dyspnea. PE TECHNIQUE: Multiaxial CT images of the chest were performed following the intravenous administration of contrast to evaluate the pulmonary arteries. M aximal intensity projection images were also obtained. A dose lowering technique was utilized adhering to the principles of ALARA. COMPARISON STUDY: 08/17/2012 FINDINGS: Thoracic aorta is normal in course and caliber. Pulmonary vasculature enhances appropriately. There are no major filling defects. There are progressive peribronchial prominence throughout both hemithoraces. Complete right lower lobe atelectatic change. There are small bilateral pleural effusions. There is developing mediastinal adenopathy. IMPRESSION: 1. No evidence of pulmonary embolus. 2. Consolidative infiltrate right lower lobe. 3. Small bilateral pleural effusions. 4. Moderate generalized peribronchial thickening. Medications Administered Current Inpatient Medications Acetaminophen (Tylenol) 325 mg PO Q6H PRN PRN Reason: mild to mod pain Stop: 09/24/18 02:51 Acetaminophen (Tylenol) 325 mg PO Q6H PRN PRN Reason: temp>100 Stop: 09/24/18 02:51 Albuterol (Duoneb) 3 ml INH QIDR [facility] Stop: 09/24/18 07:59 Last Admin: 08/25/18 15:22 Dose: 3 ml Documented by: Amiodarone HCl (Cordarone) 200 mg PO QAM [facility] Stop: 09/24/18 08:59 Last Admin: 08/25/18 09:29 Dose: 200 mg Documented by: Apixaban (Eliquis) 2.5 mg PO BID [facility] Stop: 09/24/18 20:59 Atorvastatin Calcium (Lipitor) 10 mg PO HS [facility] Stop: 09/24/18 20:59 Diclofenac Sodium (Voltaren 1% Top) 1 appln EXT QS [facility] Stop: 09/24/18 07:59 Last Admin: 08/25/18 16:14 Dose: 1 appln Documented by: Doxycycline Hyclate (Vibramycin) 100 mg PO BID [facility] Stop: 09/01/18 04:59 Last Admin: 08/25/18 05:08 Dose: 100 mg Documented by: Methylprednisolone 20 mg/ (Syringe) 0.32 mls @ 1.5 mls/min IV BID [facility] Stop: 09/24/18 08:59 Last Admin: 08/25/18 09:28 Dose: 1.5 mls/min Documented by: Piperacillin Sod/Tazobactam (Sod 3.375 gm/ Dextrose) 115 mls @ 28.75 mls/hr IV Q8H [facility] Stop: 09/01/18 02:51 Last Admin: 08/25/18 14:30 Dose: 28.8 mls/hr Documented by: Ioversol (Optiray 320 125ml) 125 ml IV ONCE PRN PRN Reason: Interaction Checking Stop: 08/29/18 00:59 Last Admin: 08/25/18 01:00 Dose: 107 ml Documented by: Levothyroxine Sodium (Synthroid) 75 mcg PO DAILYBB [facility] Stop: 09/24/18 06:29 Last Admin: 08/25/18 06:31 Dose: 75 mcg Documented by: Metoprolol Tartrate (Lopressor) 25 mg PO [facility] Stop: 09/24/18 08:59 Last Admin: 08/25/18 09:27 Dose: 25 mg Documented by: Metoprolol Tartrate (Lopressor) 50 mg PO [facility] Stop: 09/24/18 08:59 Last Admin: 08/25/18 09:28 Dose: 50 mg Documented by: Miscellaneous (Order Awaiting Action) 1 ea N/A QS [facility] Stop: 09/24/18 07:59 Last Admin: 08/25/18 16:13 Dose: Not Given Documented by: Miscellaneous Information (Consult) 1 ea N/A UD PRN PRN Reason: Consult Stop: 09/24/18 02:18 Petrolatum (Butt Paste) 1 appln EXT BID [facility] Stop: 09/24/18 08:59 Last Admin: 08/25/18 09:26 Dose: 1 appln Documented by: Ranitidine HCl (Zantac) 150 mg PO [facility] Stop: 09/24/18 20:59 Senna/Docusate Sodium (Senokot S) 1 tab PO BID [facility] Stop: 09/24/18 08:59 Last Admin: 08/25/18 09:28 Dose: 1 tab Documented by: Sertraline HCl (Zoloft) 25 mg PO HS [facility] Stop: 09/24/18 20:59 Sodium Chloride ([place] Nasal) 2 sprays NA HS [facility] Stop: 09/24/18 20:59 Terbinafine HCl (Lamisil At) 1 appln EXT [facility] Stop: 09/24/18 20:59
[2018-08-25] MEDS: APIXABAN 2.5 MG TAB PO SCH (20:09)
[2018-08-25] MEDS: TERBINAFINE CR 30 GM TUBE EXT SCH (20:10)
[2018-08-25] MEDS: ATORVASTATIN 10 MG TAB PO SCH (20:10)
[2018-08-25] MEDS: SODIUM CHLORIDE 0.65% NA SOLN 45 ML (OCEAN) SCH (20:16)
[2018-08-25] MEDS: SERTRALINE HCL 50 MG TABLET PO SCH (20:17)
[2018-08-26] MEDS: LEVOTHYROXINE SODIUM 75 MCG TABLET PO SCH (05:39)
[2018-08-26] MEDS: PIPERACILLIN/TAZOBACTAM 3.375 GM in DEXTROSE 5% 100 ML IV SCH ×3 (05:40→21:05)
--- NOTE | 2018-08-26 06:30 | XRay Report ---
XR chest 1V portable CLINICAL HISTORY: 82 years-old Female presenting with post-operative coughing and wheezing. TECHNIQUE: Portable upright AP view of the chest was obtained. COMPARISON: CTA chest from 08/25/2018 and chest x-ray from 08/24/2018. FINDINGS: The patient is significantly [place]RA[place] rotated. Allowing for this, cardiac silhouette enlarged. Collapse of the right lower lobe. Diffuse added density of the right lung. Small right pleural effusion. Left kimberly ng and pleural space clear. Patchy infiltrates evident in the left lung on CTA chest are not radiogra phically apparent. No pneumothorax. Bronchial wall thickening. Posttraumatic deformity of the proxima l right clavicle there is osteopenia may be present. IMPRESSION: 1. Right lower lobe collapse. 2. Added density of the aerated right lung may represent asymmetric edema or an infiltrate. 3. Small right pleural effusion. 4. Cardiomegaly. Electronically signed by: Bernard Perdomo M.D. 08/26/2018 6:28 AM
[2018-08-26 07:08] LABS: BUN Creatinine Ratio 15.9 (10-20); Creatinine Clr Calc Pharmacy 39.6 ml/min; Est GFR (African American) 60.6; Est GFR (Non-African American) 52.3; Potassium 4.2 mmol/L (3.5-5.1)
[2018-08-26] MEDS: ALBUT/IPRATROP 3MG/0.5MG NEB 3 ML VIAL INH SCH ×4 (07:21→19:33)
[2018-08-26] MEDS: BUTT PASTE (ZINC OXIDE 16%) 171 APPLN/57 GM JAR EXT SCH ×2 (08:01→21:04)
[2018-08-26] MEDS: DICLOFENAC SOD 1% GEL 100 GM TUBE EXT SCH ×3 (08:01→23:27)
[2018-08-26] MEDS: DOXYCYCLINE HYCLATE 100 MG CAP PO SCH ×2 (08:02→21:00)
[2018-08-26] MEDS: AMIODARONE 200 MG TAB PO SCH (08:02)
[2018-08-26] MEDS: METOPROLOL TARTRATE 50 MG TAB PO SCH ×2 (08:03→21:01)
[2018-08-26] MEDS: METOPROLOL TARTRATE 25 MG TAB PO SCH ×2 (08:03→21:01)
[2018-08-26] MEDS: DOCUSATE SODIUM/SENNA 50/8.6MG TAB PO SCH ×2 (08:03→21:02)
[2018-08-26] MEDS: APIXABAN 2.5 MG TAB PO SCH ×2 (08:03→20:59)
[2018-08-26] MEDS: methylPREDNISolone 20 MG in SYRINGE 0 ML IV SCH ×2 (08:04→21:00)
--- NOTE | 2018-08-26 11:15 | Hospitalist Progress Note ---
Date of Service August 26, 2018 Assessment & Plan (1) Pneumonia: Cont Zosyn and Doxycycline + Strep in urine, Blood Cx neg so far (2) Aspiration into airway: Chronic aspiration due to previous strokes. CT tonight suggests aspiration into the right middle lobe and right lower lobe bronchi. Has been evaluated by WEB MANAGER on multiple occasions. Doesn't want Peg She prefers to continue eating and drinking, accepting the risk of aspiration. Continue aspiration precautions, thickened liquids. (3) Chronic respiratory failure with hypoxia, on home O2 therapy: Continue supplemental O2, titrate as necessary. (4) Atrial fibrillation: Rate controlled with metoprolol and amiodarone. Continue anticoagulation with apixaban. (5) Ischemic stroke: History of ischemic strokes. Chronic atrial fibrillation. Continue anticoagulation with apixaban. (6) HTN (hypertension): controlled (7) CKD (chronic kidney disease), stage III: Serum creatinine 0.8. Follow. (8) Hypothyroidism: Continue levothyroxine. (9) DVT prophylaxis: Continue apixaban-hold for any invasive procedures. Subjective ROS-No Headache, No Visual Changes, No Nausea, No Vomiting, No Fever, No Chills, No Neck Pain or Stiffness, No Chest Pain, No Palpitations, No SOB, No WATSON, No Cough, No Sputum, No Wheezing, No Abdominal Pain, No Diarrhea, No Hematemesis, No Hemoptysis, No Unexpected Weight Loss, No Flank pain, No Melena, No Hematochezia, No Frequency, No Urgency, No Burning, No Hematuria, No Rashes, No Diaphoresis. Appetite is Normal Physical Exam Gen-AAO, NAD, Afebrile Head-NCAT, EOMI, PERRLA, Anicteric Sclera, No Posterior Pharyngeal Erythema Neck-Supple, No JVD, No Thyromegaly, No Masses, No LAD, No Bruits Lungs-Clear to Auscultation Bilaterally, No Rales, No Rhonchi, No Wheezing, No Crepitus Chest-No S4, +S1, +S2, No S3, No Murmurs, No Rubs, No Gallops, No Ectopy Abdomen-Soft, Bowel Sounds Present, Non Tender, Non Distended, No Hepatomegaly, No Splenomegaly, No Palpable Masses, No Rebound, No Rigidity, No Guarding Musculoskeletal-Full Range of Motion Bilaterally, No CVAT Extremities-No Cyanosis, No Clubbing, No Edema Nuero-Cranial Nerves II-XII grossly intact, Motor WNL, DTRs WNL, Strength WNL, Non Focal Psych-Normal Mood Physical Exam Vital Signs (Past 24 Hours): Last Vital Signs Temp 36.6 C 08/26/18 07:17 Pulse 73 08/26/18 07:21 Resp 16 08/26/18 07:21 BP 138/84 08/26/18 07:17 Pulse Ox 94 08/26/18 07:21 Results & Data Laboratory Results Current Diagnoses Hypothyroidism, unspecified (08/25/18) Essential (primary) hypertension (08/25/18) Unspecified atrial fibrillation (08/25/18) Cerebral infarction, unspecified (08/25/18) Lobar pneumonia, unspecified organism (08/25/18) Pneumonitis due to inhalation of food and vomit (08/25/18) Pleural effusion, not elsewhere classified (08/25/18) Chronic respiratory failure with hypoxia (08/25/18) Chronic kidney disease, stage 3 (moderate) (08/25/18) Unspecified foreign body in respiratory tract, part unspecified causing other injury, initial encounter (08/25/18) Encounter for administrative examinations, unspecified (08/25/18) Dependence on supplemental oxygen (08/25/18) Allergies levofloxacin Adverse Reaction (Verified 08/25/18 00:10) SEE BELOW Height/Weight/Isolation Height 5 ft 6 in Weight 59.9 kg Isolation Type Contact Precautions Chemistry 08/24/18 08/26/18 23:20 06:04 Sodium 143 141 Potassium 3.9 4.2 Chloride 104 102 Carbon Dioxide 34 H 34 H Anion Gap 5.0 5.0 BUN 14 16 Creatinine 0.93 0.99 Glucose 109 H 133 H Urinalysis 08/25/18 00:38 Urine Color Yellow Urine Appearance Clear Urine pH 6.5 Ur Specific [place] 1.018 Urine Protein Negative Urine Glucose (UA) Negative Urine Ketones Negative Urine Blood Negative Urine Nitrite Negative Urine Bilirubin Negative Microbiology 08/25/18 00:38 Urine,Straight Cath Urine Culture - Preliminary Streptococcus species 08/24/18 23:40 Blood Blood Culture - Preliminary No growth to date. 08/24/18 23:20 Blood Blood Culture - Preliminary No growth to date. (1) Pneumonia Laterality: right Lung location: lower lobe of lung Pneumonia type: due to unspecified organism Qualified Code(s): J18.1 - Lobar pneumonia, unspecified organism
[2018-08-26] MEDS: ATORVASTATIN 10 MG TAB PO SCH (21:01)
[2018-08-26] MEDS: SERTRALINE HCL 50 MG TABLET PO SCH (21:02)
[2018-08-26] MEDS: TERBINAFINE CR 30 GM TUBE EXT SCH (21:04)
[2018-08-26] MEDS: SODIUM CHLORIDE 0.65% NA SOLN 45 ML (OCEAN) SCH (21:12)
[2018-08-27] MEDS: PIPERACILLIN/TAZOBACTAM 3.375 GM in DEXTROSE 5% 100 ML IV SCH (05:25)
[2018-08-27] MEDS: LEVOTHYROXINE SODIUM 75 MCG TABLET PO SCH (05:26)
[2018-08-27 07:09] LABS: Hemoglobin 13.6 g/dL (12.0-16.0); Mean Corpuscular Hgb Conc 31.6 g/dL (32-36); Mean Corpuscular Volume 98.9 fL (80-100); Mean Platelet Volume 12.2 fL (7.4-10.4); Platelet Count 210 K/uL (130-400); RDW Coefficient of Variation 14.5 % (11.5-14.5); RDW Standard Deviation 51.8 fL (36.4-46.3); Red Blood Count 4.35 M/uL (4.2-5.4); White Blood Count 9.62 K/uL (4.8-10.8)
[2018-08-27] MEDS: ALBUT/IPRATROP 3MG/0.5MG NEB 3 ML VIAL INH SCH ×2 (07:13→11:05)
[2018-08-27 07:17] LABS: BUN Creatinine Ratio 20.9 (10-20); Calcium 7.8 mg/dl (8.5-10.1); Creatinine Clr Calc Pharmacy 42.1 ml/min; Est GFR (African American) 65.4; Est GFR (Non-African American) 56.4; Potassium 4.2 mmol/L (3.5-5.1)
[2018-08-27] MEDS: methylPREDNISolone 20 MG in SYRINGE 0 ML IV SCH (09:26)
[2018-08-27] MEDS: METOPROLOL TARTRATE 25 MG TAB PO SCH (09:27)
[2018-08-27] MEDS: AMIODARONE 200 MG TAB PO SCH (09:27)
[2018-08-27] MEDS: METOPROLOL TARTRATE 50 MG TAB PO SCH (09:28)
[2018-08-27] MEDS: DOCUSATE SODIUM/SENNA 50/8.6MG TAB PO SCH (09:28)
[2018-08-27] MEDS: DOXYCYCLINE HYCLATE 100 MG CAP PO SCH (09:28)
[2018-08-27] MEDS: DICLOFENAC SOD 1% GEL 100 GM TUBE EXT SCH (09:29)
[2018-08-27] MEDS: APIXABAN 2.5 MG TAB PO SCH (09:29)
[2018-08-27] MEDS: BUTT PASTE (ZINC OXIDE 16%) 171 APPLN/57 GM JAR EXT SCH (09:29)
--- NOTE | 2018-08-27 09:56 | Discharge Summary ---
Date of Service August 27, 2018 Admission HPI Per Admitting Provider 82-year-old female followed by Dr. Hale at [facility]. History of chronic atrial fibrillation, CHF, stroke, chronic aspiration, and other problems noted below. Admitted to [facility] on 08/11/18 with influenza A and right lower lobe pneumonia. Received oseltamavir for influenza and IV antibiotics for suspected aspiration pneumonia. Patient known to have chronic aspiration due to previous strokes and has undergone evaluation by ANIMAL EVISCERATOR in the past. She indicated that she is not interested in PEG feedings and preferred to eat and drink with the understanding that she would probably continue to have aspiration. Discharged back to [facility] on 08/15/18 on amoxicillin/clavulanic acid and prednisone taper. Chronic hypoxic respiratory failure, back to baseline oxygen requirement of 2 L/min by time of discharge. Sent to the ED tonight because of cough and increasing shortness of breath. Oxygen flow rate had to be increased to 4 L/min to maintain adequate oxygenation. Patient denies fever. Cough is nonproductive. No chest pain. Patient indicates that she occasionally coughs when she eats and drinks. Admission Exam Per Admitting Provider Constitutional: + ill appearing and + thin; no acute distress Eyes: PERRL, conjunctivae normal, anicteric sclerae ENMT: external ear and nose normal, oropharynx normal Mouth: no dentition abnormality (poor dentition) Neck: trachea midline, no thyromegaly Respiratory: Auscultation: + crackles (right base) and + wheezes (diffuse, moderate) Cardiovascular: Rate/Rhythm: + abnormal rhythm (irregularly irregular) Heart Sounds: no gallop, no murmur and no cardiac rub Vessels: + JVD; + abnormal peripheral pulses (pedal pulses diminished) Extremities: + abnormal capillary refill (bilat toes 2-3 sec), no calf tenderness and no edema Gastrointestinal (Abdomen): normal bowel sounds, soft, nontender, no hepatosplenomegaly Musculoskeletal: Head/Neck/Chest: neck supple Extremities: + abnormal strength (RUE 4/5, RLE 4/5), no cyanosis and no clubbing Skin: no rashes, warm and dry Neurologic: PERRL, EOMI no facial palsy no dysarthria or aphasia motor strength as noted above patellar DTR's 1/2 bilat plantar reflexes upgoing bilat Psychiatric: Orientation: alert and oriented x 3 Affect: euthymic affect Lymphatic: no cervical lymphadenopathy Principal Diagnosis Acute on chronic respiratory failure Left pleural effusion CKD 3 Dementia Depression Hypothyroidism GERD Atrial fib/flutter Hypertension Hyperlipidemia Chronic CHF Influenza History of ischemic stroke Discharge Exam ROS-No Headache, No Visual Changes, No Nausea, No Vomiting, No Fever, No Chills, No Neck Pain or Stiffness, No Chest Pain, No Palpitations, No SOB, No WATSON, No Cough, No Sputum, No Wheezing, No Abdominal Pain, No Diarrhea, No Hematemesis, No Hemoptysis, No Unexpected Weight Loss, No Flank pain, No Melena, No Hematochezia, No Frequency, No Urgency, No Burning, No Hematuria, No Rashes, No Diaphoresis. Appetite is Normal Physical Exam Gen-AAO, NAD, Afebrile Head-NCAT, EOMI, PERRLA, Anicteric Sclera, No Posterior Pharyngeal Erythema Neck-Supple, No JVD, No Thyromegaly, No Masses, No LAD, No Bruits Lungs-Clear to Auscultation Bilaterally, No Rales, No Rhonchi, No Wheezing, No Crepitus Chest-No S4, +S1, +S2, No S3, No Murmurs, No Rubs, No Gallops, No Ectopy Abdomen-Soft, Bowel Sounds Present, Non Tender, Non Distended, No Hepatomegaly, No Splenomegaly, No Palpable Masses, No Rebound, No Rigidity, No Guarding Musculoskeletal-Full Range of Motion Bilaterally, No CVAT Extremities-No Cyanosis, No Clubbing, No Edema Nuero-Cranial Nerves II-XII grossly intact, Motor WNL, DTRs WNL, Strength WNL, Non Focal Psych-Normal Mood Discharge Data Allergies Allergy/AdvReac Type Severity Reaction Status Date / Time levofloxacin AdvReac SEE BELOW Verified 08/25/18 00:10 Consultations 08/25/18 00:23 ED Decision to Admit Stat 08/25/18 07:00 Consult Pulmonology Routine Ordered Studies 08/25/18 00:24 CT angio chest PE protocol Stat-No PE Current Diagnoses Hypothyroidism, unspecified (08/25/18) Essential (primary) hypertension (08/25/18) Unspecified atrial fibrillation (08/25/18) Cerebral infarction, unspecified (08/25/18) Lobar pneumonia, unspecified organism (08/25/18) Pneumonitis due to inhalation of food and vomit (08/25/18) Pleural effusion, not elsewhere classified (08/25/18) Chronic respiratory failure with hypoxia (08/25/18) Chronic kidney disease, stage 3 (moderate) (08/25/18) Unspecified foreign body in respiratory tract, part unspecified causing other injury, initial encounter (08/25/18) Encounter for administrative examinations, unspecified (08/25/18) Dependence on supplemental oxygen (08/25/18) Allergies levofloxacin Adverse Reaction (Verified 08/25/18 00:10) SEE BELOW Height/Weight/Isolation Height 5 ft 6 in Weight 59.2 kg Isolation Type Contact Precautions Chemistry 08/26/18 08/27/18 06:04 06:07 Sodium 141 141 Potassium 4.2 4.2 Chloride 102 104 Carbon Dioxide 34 H 32 Anion Gap 5.0 5.0 BUN 16 20 H Creatinine 0.99 0.93 Glucose 133 H 117 H Microbiology 08/25/18 00:38 Urine,Straight Cath Urine Culture - Preliminary Streptococcus species 08/24/18 23:40 Blood Blood Culture - Preliminary No growth to date. 08/24/18 23:20 Blood Blood Culture - Preliminary No growth to date. Hospital Course (1) Pneumonia: Discharge on Omnicef and Doxycycline + Strep in urine, Blood Cx neg so far (2) Aspiration into airway: Chronic aspiration due to previous strokes. CT tonight suggests aspiration into the right middle lobe and right lower lobe bronchi. Has been evaluated by ANIMAL EVISCERATOR on multiple occasions. Doesn't want Peg or Bronch She prefers to continue eating and drinking, accepting the risk of aspiration. Continue aspiration precautions, thickened liquids. HOB 30-45 degrees, sit up to eat (3) Chronic respiratory failure with hypoxia, on home O2 therapy: 95% on RA (4) Atrial fibrillation: Rate controlled with metoprolol and amiodarone. Continue anticoagulation with apixaban. (5) Ischemic stroke: History of ischemic strokes. Chronic atrial fibrillation. Continue anticoagulation with apixaban. (6) HTN (hypertension): Monitor Outpatient (7) CKD (chronic kidney disease), stage III: Serum creatinine 0.93 (8) Hypothyroidism: Continue levothyroxine. (9) DVT prophylaxis: Apixaban Total Time Total Time Spent Total Time Spent (In Minutes): 50 mins Total Time Includes: Examination of the Patient, Discharge Planning, Medication Reconciliation and Communication With Other Providers Discharge Plan Discharge Items Patient Disposition: Trans Resident Long-Term Care Reason For Visit: HYPOXIA Discharge Diagnosis: Acute on chronic respiratory failure Left pleural effusion CKD 3 Dementia Depression Hypothyroidism GERD Atrial fib/flutter Hypertension Hyperlipidemia Chronic CHF Influenza History of ischemic stroke Condition: Fair Discharge Goals: Improve function Activity: Resume your previous activity Activity Comment: Patient wears RLE brace for mobilization from old stroke Lifting: None Bathing: No limitations Exercise/Sports: None Weightbearing: Left weightbearing and Right weightbearing Weightbearing Comment: With FW Walker Non-emergency contact: Primary Care Provider Call non-emergency contact if: you have any medication questions Follow-up/Referrals: Sofy Durham [Primary Care Provider] - Diet: Heart Healthy Liquid Consistency: Honey thick Diet Comment: Eat sitting Up, HOB 30-45 degrees Addtl Provider Instructions: Patient is a chronic aspirator, does not want a PEG or Bronch, Wants to continue to eat. Follow CXR to full resolution in 8 weeks. Incentive Spirometry 10x/hour While Awake Prescriptions: New doxycycline hyclate 100 mg Capsule 100 mg PO BID Qty: 26 RF: 0 cefdinir 300 mg capsule 300 mg PO Q12H 12 Days Qty: 24 RF: 0 Continued acetaminophen [Tylenol] 325 mg Tablet 325 mg PO Q6H MDD 2gm/24hr PRN (Reason: mild to mod pain) RF: 0 acetaminophen 650 mg Suppository 650 mg DE Q6H MDD 2500mg/24hr PRN (Reason: temp > or = 100) RF: 0 ipratropium-albuterol 0.5 mg-3 mg(2.5 mg base)/3 mL solution for nebulization 2.5 mg Inhalation QID RF: 0 atorvastatin 10 mg tablet 10 mg PO HS RF: 0 amiodarone 200 mg tablet 200 mg PO QAM RF: 0 sennosides-docusate sodium [Senna-S] 8.6-50 mg Tablet 1 tab PO BID RF: 0 levothyroxine 75 mcg tablet 75 mcg PO QAM RF: 0 ranitidine HCl 150 mg tablet 150 mg PO HS RF: 0 metoprolol tartrate 50 mg tablet 50 mg PO AMHS RF: 0 sertraline 25 mg tablet 25 mg PO HS RF: 0 ergocalciferol (vitamin D2) [Vitamin D2] 50,000 unit Capsule 50,000 unit PO WK RF: 0 white petrolatum [Vaseline] Gel 1 applic TOPICAL HS RF: 0 sodium chloride [Saline Nasal] 0.65 % Aerosol,Lapine 2 spray Intranasal HS RF: 0 metoprolol tartrate 25 mg tablet 25 mg PO AMHS RF: 0 terbinafine 1 % Gel 1 applic TOPICAL HS RF: 0 diclofenac sodium 1 % gel 1 applic topical QS RF: 0 Desitin 13 % Cream 1 applic TOPICAL BID RF: 0 denosumab 60 mg/mL syringe 60 mg subcut Q6M RF: 0 apixaban 2.5 mg tablet 2.5 mg PO QAM RF: 0 prednisone 10 mg tablet 10 mg PO UD Qty: 12 RF: 0 acetaminophen [Tylenol] 325 mg Tablet 325 mg PO Q6H MDD 3g/24hr PRN (Reason: temp>100) RF: 0 promethazine 25 mg Suppository 25 mg DE Q8 PRN (Reason: n/v) RF: 0 guaifenesin [Siltussin SA] 100 mg/5 mL Liquid 10 mg PO Q4 PRN (Reason: Cough) RF: 0 amoxicillin 500 mg Capsule 2,000 mg PO UD PRN (Reason: Prophylaxis) RF: 0 acetaminophen [Tylenol] 325 mg Tablet 650 mg PO Q8 MDD 2000mg/24hr PRN (Reason: severe pain) RF: 0 albuterol sulfate 2.5 mg /3 mL (0.083 %) Solution For Nebulization 2.5 mg Continuous Nebulization .EVERY 2 HOURS PRN (Reason: sob,wheeze,po2 <90% or congest) RF: 0 alum-mag hydroxide-simeth [Antacid] 200-200-20 mg/5 mL Suspension 30 ml PO Q4 PRN (Reason: Heartburn) RF: 0 Stand-Alone Forms: [facility] Discharge Orders: Discharge Order (Routine); Ordered 08/27/18 Ordered By: Kishore Bob Admission Data Admit Date/Time: 08/25/18 01:51 Attending Provider: Kishore Bob Admit Provider: Trace Jackson Primary Care Provider: Sofy Durham Other Providers: Trace Jackson ; Girish Nassar Service: Telemetry Medical
--- NOTE | 2018-08-28 14:12 | Pharmacy Report ---
ED Pharmacist Progress Note - ED Pharmacist Progress Note Date of Service:: August 28, 2018 Notes:: Received note from charge nurse saying she got a call regarding patient's urine culture. Patient was admitted under [facility] team an discharged yesterday. Urine cutlure growing VRE susceptible to daptomycin. Patient was treated with zosyn/doxycycline at hospital stay and discharged with cefdinir/doxycycline for pneumonia which would not cover VRE. Patient had normal white count, afebrile throughout stay. Did not see urinary symptoms documented. Results were passed on to Dr. Bob who was the patient's discharging physician to follow-up.
== END 2018-08-27 14:15 | DRG 177 ==
LOC: ED 23:01 → SUATTDRO 08-25 01:51 → 2N 08-25 01:51

== ENCOUNTER 2020-06-13 11:34 | Inpatient (IN) ==
--- OUTSIDE RECORDS SUMMARY | 2020-06-13 11:38 | External Medical Summary | Continuity of Care Document ---
:1935 Author Name Reg Macedo Address Unavailable Unavailable , Care Team Providers Name Role Phone Breezy Macdonald M.D. Unavailable [email or web address], [email or web address] Unavailable Unavailable Problems Active medical history not documented Allergies and Adverse Reactions Allergy history not documented Medications Medications not documented Procedures Procedures not documented Immunizations Immunizations not documented Plan of Treatment Planned Observations Planned Goals not documented Results No Known Results Results not documented
[2020-06-13] MEDS ORDERED: SODIUM CHLORIDE 0.9% 1000ML 1,000 ML IV SCH ×2 (12:00→16:31)
--- NOTE | 2020-06-13 12:26 | Emergency Department Note ---
Impression & Plan Pneumonia, COVID-19 virus infection, Acute UTI (urinary tract infection) ED Provider Note NAME: FRANCY BRANDON AGE: 84 SEX: F : 1935 ARRIVES VIA: Ambulance INFORMANT: Patient, prehospital personnel ED PROVIDER(S): Herman Barajas DO CHIEF COMPLAINT: Weakness HPI: The patient is an 84-year-old female who was recently diagnosed with COVID- 19 who was sent from her [facility] for an evaluation of generalized weakness. The patient has had been noticing decreased p.o. intake. She has generalized weakness. She was sent to the emergency department for "failure to thrive". She has had no weakness or urinary symptoms. Reportedly she had no nausea or vomiting. There is been no report of black or bloody bowel movements. Patient does have a history of underlying dementia but appears to be answering questions appropriately today. ROS: See above HPI for pertinent positives & negatives. A total of 10 systems reviewed and were otherwise negative. PAST MEDICAL HISTORY: See Below PAST SURGICAL HISTORY: See Below FAMILY HISTORY: See Below SOCIAL HISTORY: See Below HOME MEDICATIONS: See Below ALLERGIES: See Below VITALS: See Below PHYSICAL EXAMINATION: GENERAL: The patient is awake and alert. She does not appear to be in pain or uncomfortable. EYES: The conjunctivae are clear. The pupils are round and reactive. EARS, NOSE, MOUTH AND THROAT: The nose is without any evidence of any deformity. Mucous membranes are dry. NECK: The neck is nontender and supple. RESPIRATORY: Diminished breath sounds are noted in the left lung field. There were scattered rales in the right lung field. No tachypnea or conversational dyspnea was appreciated. CARDIOVASCULAR: Tachycardic and irregular rhythm was noted to auscultation. There was no definite murmur. GASTROINTESTINAL: The abdomen is soft. Abdomen is nontender. MUSCULOSKELETAL/EXTREMITIES: There is no evidence of gross deformity full range of motion is noted in the hips and shoulders. SKIN: Skin was warm and dry. Pedal edema was noted bilaterally. NEUROLOGIC: Patient was awake and oriented to person place but not time or situation. MEDICAL DECISION MAKING: The patient is an 84-year-old female who presented to the emergency department by ambulance for an evaluation of generalized weakness. The patient was recently diagnosed with COVID-19 infection. She has been eating less and a ccording to the prehospital personnel they felt the patient was not doing well at the personal [facility]. She was found to have signs of a new pneumonia. She was treated with IV fluids and IV antibiotics. She was also found no signs of urinary tract infection. Given her age and comorbidities I discussed this case with the on-call [facility]. I also discussed her condition with her nephew who is the power of deputy attorney general. The patient may do well as an inpatient especially given all of her findings today. She was somewhat improved on physical exam but her blood pressure was found to be low on reevaluation. Triage Nursing notes reviewed. Prior medical records reviewed Vital Signs: reviewed and remarkable for hypotension Differential diagnosis: Infection, dehydration, metabolic abnormality, hypo/hyperglycemia, electrolyte disturbance, anemia, hypoxia, cardiac sources, intracerebral event, toxicologic, neurologic, as well as other pathologies. ER treatment provided: See below Diagnostics interpreted by me: ECG: EKG was obtained in the emergency department. My interpretation is atrial flutter at 99 bpm. No PVCs were noted. Poor R wave progression was noted. Lateral ST depressions were noted. This was compared to a tracing from August 252018. The ST depressions are new compared to the earlier tracing. Cardiac Monitoring: An order was placed for continuous cardiac monitoring. The monitor shows a rate of 85 bpm with atrial fibrillation rhythm. Laboratory studies: As stated above and show below. Imaging studies: See below Consultation(s): 1415: I discussed this case with Adia who is on-call for the [facility]. They will evaluate the patient in the emergency department. 1520: I discussed this case with Taye Landis who is the patient's nephew. He is the power of deputy attorney general. He does state that his aunt would not want to have any life-sustaining interventions such as intubation or CPR. He can be reached at [phone]. Past Med/Surg History Medical History Aspiration into airway Aspiration pneumonia (07/30/13) Atrial fibrillation Bronchitis Chronic respiratory failure with hypoxia, on home O2 therapy CKD (chronic kidney disease), stage III Dementia Depression Dyslipidemia GERD (gastroesophageal reflux disease) History of breast cancer HTN (hypertension) Hypothyroidism Ischemic stroke (02/02/12) Surgical History History of breast surgery Status post mastectomy Family History Other Family history unobtainable due to patient's condition Social History Smoking Status: Former smoker Second Hand Exposure: No; Hx Alcohol Use: No Hx Substance Use: No Preferred Language: Kyrgyz Communication Ability: Effective Staff Pharmacist Required: No Beliefs That Will Affect Care: None marital status: / Current Living Situation: Half-Way Feels Safe at Home: Yes Assistive Devices: Walker Allergies Allergies Allergy/AdvReac Type Severity Reaction Status Date / Time levofloxacin AdvReac SEE BELOW Verified 06/13/20 13:47 Home Meds Home Medications Medication Instructions Recorded Confirmed Desitin Rapid Relief 1 applic TOPICAL HS 08/11/18 06/13/20 amiodarone 200 mg PO BID 08/11/18 06/13/20 apixaban 2.5 mg PO BID 08/11/18 06/13/20 denosumab 60 mg SUBCUT Q6M 08/11/18 06/13/20 diclofenac sodium 2 g TOPICAL QS 08/11/18 06/13/20 ergocalciferol (vitamin D2) 50,000 unit PO .Q2WK 08/11/18 06/13/20 [Vitamin D2] ipratropium-albuterol 2.5 mg INHALATION TID 08/11/18 06/13/20 metoprolol tartrate 25 mg PO BID 08/11/18 06/13/20 sertraline 25 mg PO HS 08/11/18 06/13/20 sodium chloride [Saline Nasal] 2 spray INTRANASAL HS 08/11/18 06/13/20 atorvastatin 10 mg PO HS 06/13/20 06/13/20 dexamethasone 6 mg PO DAILY 06/13/20 06/13/20 famotidine [Pepcid] 20 mg PO BID 06/13/20 06/13/20 ketoconazole 1 applic TOPICAL SUTH 06/13/20 06/13/20 levothyroxine 88 mcg PO QAM 06/13/20 06/13/20 magnesium hydroxide [Milk of 15 ml PO DAILY PRN 06/13/20 06/13/20 Magnesia] melatonin 1 mg PO HS PRN 06/13/20 06/13/20 terbinafine HCl 1 applic TOPICAL BID 06/13/20 06/13/20 zinc oxide 1 applic TOPICAL BID 06/13/20 06/13/20 Results & Data (ED) Vital Signs Vital Signs - 24 hr 06/13/20 11:58 06/13/20 12:00 06/13/20 12:25 Temperature 37.2 C Temperature Source Oral Pulse Rate 101 H 88 95 H Pulse Rate from SpO2 Sensor 93 H 96 H Pulse Rhythm Irregular Pulse Strength Normal Respiratory Rate 18 18 22 Respiratory Effort / Characteristics Non-Labored SOB on Exertion Respiratory Pattern Regular Blood Pressure 116/67 100/68 Blood Pressure Mean 83 86 Blood Pressure Position Lying Pulse Oximetry 98 97 97 Oxygen Delivery Method Nasal Cannula Oxygen Flow Rate 2 Sepsis Recent Fever Within 48 Hours No Sepsis New/Unexplained Change in Mental Status N/A Sepsis Action Taken by Nursing No Action Required 06/13/20 12:30 06/13/20 12:36 06/13/20 12:45 Temperature Temperature Source Pulse Rate 90 83 86 Pulse Rate from SpO2 Sensor 96 H 90 90 Pulse Rhythm Pulse Strength Respiratory Rate 23 18 21 Respiratory Effort / Characteristics Respiratory Pattern Blood Pressure 130/98 Blood Pressure Mean 102 Blood Pressure Position Pulse Oximetry 98 99 100 Oxygen Delivery Method Oxygen Flow Rate Sepsis Recent Fever Within 48 Hours Sepsis New/Unexplained Change in Mental Status Sepsis Action Taken by Nursing 06/13/20 13:00 06/13/20 13:01 06/13/20 13:15 Temperature Temperature Source Pulse Rate 89 92 H 90 Pulse Rate from SpO2 Sensor 90 91 H 92 H Pulse Rhythm Pulse Strength Respiratory Rate 20 23 25 H Respiratory Effort / Characteristics Respiratory Pattern Blood Pressure 114/80 Blood Pressure Mean 85 Blood Pressure Position Pulse Oximetry 100 100 99 Oxygen Delivery Method Oxygen Flow Rate Sepsis Recent Fever Within 48 Hours Sepsis New/Unexplained Change in Mental Status Sepsis Action Taken by Nursing 06/13/20 13:31 06/13/20 13:46 06/13/20 14:00 Temperature Temperature Source Pulse Rate 93 H 86 96 H Pulse Rate from SpO2 Sensor 94 H 88 95 H Pulse Rhythm Pulse Strength Respiratory Rate 17 24 18 Respiratory Effort / Characteristics Respiratory Pattern Blood Pressure 127/67 96/69 L Blood Pressure Mean 77 77 Blood Pressure Position Pulse Oximetry 98 99 98 Oxygen Delivery Method Oxygen Flow Rate Sepsis Recent Fever Within 48 Hours Sepsis New/Unexplained Change in Mental Status Sepsis Action Taken by Half-Way Medications Current Medication List: was personally reviewed by me Laboratory Data Attestation: I reviewed the patient's lab results. Result diagrams: 06/13/20 12:19 06/13/20 12:19 Lab Results 06/13/20 06/13/20 06/13/20 Range/Units 12: 12: 12:19 WBC 15.79 H (4.8-10.8) K/uL RBC 5.11 (4.2-5.4) M/uL Hgb 15.6 (12.0-16.0) g/dL Hct 48.4 H (37-47) % MCV 94.7 (80-100) fL MCH 30.5 (25-34) pg MCHC 32.2 (32-36) g/dL RDW Std Deviation 55.1 H (36.4-46.3) fL RDW Coeff of Gregory 16.1 H (11.5-14.5) % Plt Count 152 (130-400) K/uL MPV 12.7 H (7.4-10.4) fL Immature Gran % (Auto) 0.3 % Neut % (Auto) 80.6 % Lymph % (Auto) 12.3 % Juab % (Auto) 6.6 % Eos % (Auto) 0.1 % Baso % (Auto) 0.1 % Neut # (Auto) 12.72 H (1.4-6.5) K/uL Lymph # (Auto) 1.95 (1.2-3.4) K/uL [place] # (Auto) 1.05 H (0.11-0.59) K/uL Eos # (Auto) 0.01 (0-0.5) K/uL Baso # (Auto) 0.01 (0-0.2) K/uL Immature Gran # (Auto) 0.05 H (0.00-0.02) K/uL PT 14.4 H (9.0-12.0) Seconds INR 1.4 H (0.9-1.1) APTT 31.0 (21.0-31.0) Seconds PTT Ratio 1.1 Sodium 142 (136-145) mmol/L Potassium 4.6 (3.5-5.1) mmol/L Chloride 107 (98-107) mmol/L Carbon Dioxide 29 (21-32) mmol/L Anion Gap 6.0 (3-11) BUN 52 H (7-18) mg/dl Creatinine 1.66 H (0.6-1.2) mg/dl Est Cr Clr Drug Dosing 19.5 ml/min Est GFR ( Amer) 32.0 Est GFR (Non-Af Amer) 27.6 BUN/Creatinine Ratio 31.1 H (10-20) Glucose 129 H (70-99) mg/dl Calcium 8.1 L (8.5-10.1) mg/dl Magnesium 2.6 H (1.8-2.4) mg/dl Total Bilirubin 0.9 (0.2-1) mg/dl AST 67 H (15-37) U/L ALT 113 H (12-78) U/L Alkaline Phosphatase 64 (45-117) U/L Total Creatine Kinase 49 (26-192) U/L Troponin I 0.030 (0-0.045) ng/ml Total Protein 6.0 L (6.4-8.2) gm/dl Albumin 2.2 L (3.4-5.0) gm/dl Globulin 3.8 (2.5-4.0) gm/dl Albumin/Globulin Ratio 0.6 L (0.9-2) TSH 8.220 H (0.300-4.500) uIu/ml Free T4 1.15 (0.8-1.6) ng/dl Specimen Hemolysis Urine Color Urine Appearance (Clear) Urine pH (4.5-7.5) Ur Specific Rowena (1.000-1.030) Urine Protein (Negative) Urine Glucose (UA) (Negative) Urine Ketones (Negative) Urine Blood (Negative) Urine Nitrite (Negative) Urine Bilirubin (Negative) Urine Urobilinogen (Negative) Ur Leukocyte Esterase (Negative) Urine WBC (Auto) (0-5) /hpf Urine RBC (Auto) (0-4) /hpf U Hyaline Cast (Auto) (0-5) /lpf U Epithel Cells (Auto) (0-5) /lpf Urine Bacteria (Auto) (Negative) Triple Phos Crystals (None Prsent) Urine Yeast 06/13/20 Range/Units Unknown WBC (4.8-10.8) K/uL RBC (4.2-5.4) M/uL Hgb (12.0-16.0) g/dL Hct (37-47) % MCV (80-100) fL MCH (25-34) pg MCHC (32-36) g/dL RDW Std Deviation (36.4-46.3) fL RDW Coeff of Gregory (11.5-14.5) % Plt Count (130-400) K/uL MPV (7.4-10.4) fL Immature Gran % (Auto) % Neut % (Auto) % Lymph % (Auto) % [place] % (Auto) % Eos % (Auto) % Baso % (Auto) % Neut # (Auto) (1.4-6.5) K/uL Lymph # (Auto) (1.2-3.4) K/uL [place]ab # (Auto) (0.11-0.59) K/uL Eos # (Auto) (0-0.5) K/uL Baso # (Auto) (0-0.2) K/uL Immature Gran # (Auto) (0.00-0.02) K/uL PT (9.0-12.0) Seconds INR (0.9-1.1) APTT (21.0-31.0) Seconds PTT Ratio Sodium (136-145) mmol/L Potassium (3.5-5.1) mmol/L Chloride (98-107) mmol/L Carbon Dioxide (21-32) mmol/L Anion Gap (3-11) BUN (7-18) mg/dl Creatinine (0.6-1.2) mg/dl Est Cr Clr Drug Dosing ml/min Est GFR ( Amer) Est GFR (Non-Af Amer) BUN/Creatinine Ratio (10-20) Glucose (70-99) mg/dl Calcium (8.5-10.1) mg/dl Magnesium (1.8-2.4) mg/dl Total Bilirubin (0.2-1) mg/dl AST (15-37) U/L ALT (12-78) U/L Alkaline Phosphatase (45-117) U/L Total Creatine Kinase (26-192) U/L Troponin I (0-0.045) ng/ml Total Protein (6.4-8.2) gm/dl Albumin (3.4-5.0) gm/dl Globulin (2.5-4.0) gm/dl Albumin/Globulin Ratio (0.9-2) TSH (0.300-4.500) uIu/ml Free T4 (0.8-1.6) ng/dl Specimen Hemolysis Urine Color Dark Yellow Urine Appearance Turbid A (Clear) Urine pH >= 9.0 H (4.5-7.5) Ur Specific Rowena 1.020 (1.000-1.030) Urine Protein 4+ H (Negative) Urine Glucose (UA) Trace H (Negative) Urine Ketones Negative (Negative) Urine Blood 1+ H (Negative) Urine Nitrite Negative (Negative) Urine Bilirubin Negative (Negative) Urine Urobilinogen Negative (Negative) Ur Leukocyte Esterase 2+ H (Negative) Urine WBC (Auto) >30 H (0-5) /hpf Urine RBC (Auto) 10-30 H (0-4) /hpf U Hyaline Cast (Auto) 1-5 (0-5) /lpf U Epithel Cells (Auto) >30 H (0-5) /lpf Urine Bacteria (Auto) 4+ H (Negative) Triple Phos Crystals Present A (None Prsent) Urine Yeast Not Reportable Administered Medications Discontinued Medications Sodium Chloride (Nss 1000ml) 1,000 mls @ 999 mls/hr IV .Q1H1M REY Stop: 06/13/20 13:00 Last Infusion: 06/13/20 13:31 Dose: 0 mls/hr Documented by: [id number] Admin: 06/13/20 12:30 Dose: 999 mls/hr Documented by: [id number] Imaging Data Radiologist's Impression: Patient: FRANCY BRANDON Admit Date: 06/13/20 MR#: [id number] Address1: [address] [place] [address] Acct ID:[id number] Address2: [facility] Date: 1935 [facility] Zip: [place] [address] Age: 84 Location: ED Sex: F Room/Bed: Att Phy: Diagnosis: SOB Demetria Phy: [facility] Service Date: 06/13/20 Fam Phy: Interpreting Phy: Isauro Soriano MD Admit Phy: Ordering Phy: Karl, Herman R., DO cc: ~ SINGLE VIEW CHEST CLINICAL HISTORY: Generalized weakness. FINDINGS: 2 AP, portable, upright chest radiographs are compared to chest x-ray and chest CT dated 08/25/2018. The examination is significantly degraded by portable technique and patient rotation. The heart is enlarged noting atherosclerotic calcification of the thoracic aorta. The pulmonary vasculature is noncongested. Consolidation at the right lung base is unchanged from the 08/25/2018 examinations. There is associated volume loss in the right lung with associated leftward shift of the mediastinum. Patchy airspace opacities are seen in the right upper lung. The left lung is grossly clear. There is a small right pleural effusion. No pneumothorax is seen. The skeletal structures are os teopenic. The bony thorax is grossly intact. IMPRESSION: 1. Consolidation at the right lung base is likely chronic, with associated volume loss in the right lung and leftward shift of the mediastinum. This is similar in appearance to 08/25/2018. 2. Patchy airspace opacities are seen in the right upper lung. Correlate clinically for evidence of a superimposed infectious/inflammatory pneumonitis. 3. Cardiomegaly without radiographic evidence of congestive failure. ACT 112: Negative or not required by law. Electronically signed by: Isauro Soriano M.D. 06/13/2020 1:21 PM Dictated: 06/13/20 1317 Transcribed: 06/13/20 131 Blood Pressure Blood Pressure Findings: Low blood pressure Discharge Plan Visit Data Chief Complaint: Shortness of Breath/Dyspnea ED Provider: Herman Barajas Discharge Problem: Pneumonia, COVID-19 virus infection, Acute UTI (urinary tract infection) Patient Disposition: Being Evaluated by Hospitalist Condition: Good Forms Stand Alone Forms: [facility] Prescriptions Prescriptions: No Action ipratropium-albuterol 0.5 mg-3 mg(2.5 mg base)/3 mL solution for nebulization 2.5 mg Inhalation TID RF: 0 amiodarone 200 mg tablet 200 mg PO BID RF: 0 sertraline 25 mg tablet 25 mg PO HS RF: 0 ergocalciferol (vitamin D2) [Vitamin D2] 50,000 unit Capsule 50,000 unit PO .Q2WK RF: 0 sodium chloride [Saline Nasal] 0.65 % Aerosol,Jackson 2 spray Intranasal HS RF: 0 metoprolol tartrate 25 mg tablet 25 mg PO BID RF: 0 diclofenac sodium 1 % gel 2 g topical QS RF: 0 Desitin Rapid Relief 13 % Cream 1 applic TOPICAL HS RF: 0 denosumab 60 mg/mL syringe 60 mg subcut Q6M RF: 0 apixaban 2.5 mg tablet 2.5 mg PO BID RF: 0 terbinafine HCl 1 % Cream 1 applic TOPICAL BID RF: 0 ketoconazole 2 % shampoo 1 applic TOPICAL SUTH RF: 0 levothyroxine 88 mcg tablet 88 mcg PO QAM RF: 0 famotidine [Pepcid] 20 mg Tablet 20 mg PO BID RF: 0 magnesium hydroxide [Milk of Magnesia] 400 mg/5 mL Suspension 15 ml PO DAILY PRN (Reason: Constipation) RF: 0 melatonin 1 mg Tablet 1 mg PO HS PRN (Reason: Sleep) RF: 0 zinc oxide 40 % Ointment 1 applic TOPICAL BID RF: 0 atorvastatin 10 mg tablet 10 mg PO HS RF: 0 dexamethasone 6 mg Tablet 6 mg PO DAILY RF: 0 Referrals Referrals: Sofy Durham [Primary Care Provider] -
[2020-06-13 12:38] LABS: Basophils # (auto) 0.01 K/uL (0-0.2); Basophils % (auto) 0.1 %; Eosinophils # (auto) 0.01 K/uL (0-0.5); Eosinophils % (auto) 0.1 %; Hematocrit (blood only) 48.4 % (37-47); Hemoglobin 15.6 g/dL (12.0-16.0); Immature Granulocytes # (auto) 0.05 K/uL (0.00-0.02); Immature Granulocytes % (auto) 0.3 %; Lymphocytes # (auto) 1.95 K/uL (1.2-3.4); Lymphocytes % (auto) 12.3 %; Mean Corpuscular Hemoglobin 30.5 pg (25-34); Mean Corpuscular Hgb Conc 32.2 g/dL (32-36); Mean Corpuscular Volume 94.7 fL (80-100); Mean Platelet Volume 12.7 fL (7.4-10.4); Monocytes # (auto) 1.05 K/uL (0.11-0.59); Monocytes % (auto) 6.6 %; Neutrophils # (auto) 12.72 K/uL (1.4-6.5); Neutrophils % (auto) 80.6 %; Platelet Count 152 K/uL (130-400); RDW Coefficient of Variation 16.1 % (11.5-14.5); RDW Standard Deviation 55.1 fL (36.4-46.3); Red Blood Count 5.11 M/uL (4.2-5.4); White Blood Count 15.79 K/uL (4.8-10.8)
[2020-06-13 12:56] LABS: INR 1.4 (0.9-1.1); Partial Thromboplastin Ratio 1.1; Prothrombin Time 14.4 Seconds (9.0-12.0)
[2020-06-13 13:12] LABS: Albumin Globulin Ratio 0.6 (0.9-2); Albumin Level 2.2 gm/dl (3.4-5.0); BUN Creatinine Ratio 31.1 (10-20); Bilirubin,Total 0.9 mg/dl (0.2-1); Calcium 8.1 mg/dl (8.5-10.1); Creatinine Clr Calc Pharmacy 19.5 ml/min; Est GFR (Non-African American) 27.6; Globulin 3.8 gm/dl (2.5-4.0); Thyroid Stimulating Hormone 8.22 uIu/ml (0.300-4.500); Troponin I 0.03 ng/ml (0-0.045)
[2020-06-13 13:19] LABS: Potassium 4.6 mmol/L (3.5-5.1)
[2020-06-13 13:22] LABS: Appearance Urine Turbid (Clear); Bacteria Urine Automated 4+ (Negative); Bilirubin Urine Negative (Negative); Blood Urine 1+ (Negative); Color Urine Dark Yellow; Epithelial Cell Urine Auto >30 /lpf (0-5); Glucose Urine UA Trace (Negative); Ketones Urine Negative (Negative); Leukocyte Esterase Urine 2+ (Negative); Nitrite Urine Negative (Negative); Urobilinogen Urine Negative (Negative); WBC Urine Automated >30 /hpf (0-5); pH Urine >= 9.0 (4.5-7.5)
--- NOTE | 2020-06-13 13:22 | XRay Report ---
SINGLE VIEW CHEST CLINICAL HISTORY: Generalized weakness. FINDINGS: 2 AP, portable, upright chest radiographs are compared to chest x-ray and chest CT dated 08/25/2018. The examination is significantly degraded by portable technique and patient rotation. The he art is enlarged noting atherosclerotic calcification of the thoracic aorta. The pulmonary vasculature is noncongested. Consolidation at the right lung base is unchanged from the 08/25/2018 examinations. T here is associated volume loss in the right lung with associated leftward shift of the mediastinum. P atchy airspace opacities are seen in the right upper lung. The left lung is grossly clear. There is a small right pleural effusion. No pneumothorax is seen. The skeletal structures are osteopenic. The b dejah thorax is grossly intact. IMPRESSION: 1. Consolidation at the right lung base is likely chronic, with associated volume loss in the right l colton and leftward shift of the mediastinum. This is similar in appearance to 08/25/2018. 2. Patchy airspace opacities are seen in the right upper lung. Correlate clinically for evidence of a superimposed infectious/inflammatory pneumonitis. 3. Cardiomegaly without radiographic evidence of congestive failure. ACT 112: Negative or not required by law. Electronically signed by: Iasuro Soriano M.D. 06/13/2020 1:21 PM
[2020-06-13 13:27] LABS: Magnesium 2.6 mg/dl (1.8-2.4); T4 Free Thyroxine 1.15 ng/dl (0.8-1.6)
[2020-06-13 13:45] LABS: Protein Urine 4+ (Negative); Sulfosalicylic Acid Urine Positive (Negative)
[2020-06-13] MEDS ORDERED: PIPERACILL/TAZOBAC CONSULT ACTIVE PRN ×2 (13:47→16:31)
[2020-06-13] MEDS ORDERED: PIPERACILLIN/TAZOBACTAM 4.5 GM/120 ML BAG IV ONE (13:47)
[2020-06-13 14:00] LABS: Triple Phosphate Crystal Urine Present (None Prsent)
[2020-06-13] MEDS ORDERED: SODIUM CHLORIDE 0.9% 500 ML IV ONE (14:06)
--- NOTE | 2020-06-13 15:03 | History & Physical Report ---
Date of Service June 13, 2020 Assessment & Plan (1) COVID-19 virus infection: This is an 84-year-old female who has significant past medical history of CVA with residual right hemiparesis oropharyngeal dysphagia, PAF anticoagulated on Eliquis, HTN, HLD, CKD stage III baseline creatinine 1.0, recurrent aspiration pneumonia on chronic oxygen therapy 2 L , hx of recurrent UTI -VRE, who presents to ED secondary to failure to thrive and weakness x10 days. Pt tested positive for covid 05/29, roommate + 05/23. Started on empiric dexamethasone 6mg daily starting 05/23. Completed courses of azithromycin and levaquin. Coming in today with acute dehydration, a/c Ckd-3, possible UTI and elevated WBC possibly in setting of decadron. Admit to med tele continue empiric zosyn for now until infectious etiology ruled out blood and urine cultures pending will start taper of dexamethasone - has been on 6mg for 21 days, will start 4mg 06/14 Further dexamethasone taper per Dr. Rodriugez starting 06/14 aspiration precautions, pureed, honey thick liquid IVF 75 cc/hr x 1 L PT/OT Pt is with out increased O2 requirements and tested + 15 days ago. Does not meet criteria for remdesivir or convalescent plasma contact precautions due to VRE (2) Chronic respiratory failure with hypoxia, on home O2 therapy: hx of recurrent aspiration PNA due to hx of CVA with dysphagia and failure to follow proper diet RUL airspace opacity - possible aspiration Pneumonitis vs covid PNA completed course of oral azithromycin/ levaquin empiric zosyn for now until infectious etiology ruled out flutter valve (3) Acute worsening of stage 3 chronic kidney disease: baseline cr 1.0 bun/cr 52 and 1.66 received 1L of IVF in ED possible medication induced 2/2 to multiple antibiotics (azithro and levaquin) - avoid nephrotoxic agents continue IVF 75cc/h x 1 L - re assess in a.m. (4) Leukocytosis: wbc 15.79 has been elevated, trending up 06/05 13k has been on dexamethasone since 05/23 possible steroid induced Possible Aspiration pneumonia vs UTI - urine + bacturia per [facility] pt with colonized VRE in urine contact isolation (5) Elevated LFTs: AST 67, ALT 113 has been elevated in outpt setting since 06/07 labs per what [facility] sent with patient on amiodarone and statin, hold statin repeat lfts in a.m. consider US liver if persists (6) Atrial fibrillation: continue amiodarone and metoprolol anticoagulated on eliquis (7) HTN (hypertension): BP stable, SBP in 120s continue metoprolol (8) History of stroke: with RHP and oropharyngeal dysphagia continue apixaban, hold statin in setting of elevated lfts (9) Dyslipidemia: statin on hold (10) DVT prophylaxis: continue eliquis Disposition: admit to med tele Follow up: PCP Dr. Hale/Senia at [facility] upon discharge, PT/OT consulted, case management consulted Pt was collaborated with Dr. Ramirez, please see addendum History of Present Illness Chief Complaint: Failure to thrive and weakness x 10 days. Primary Care Provider: [facility] This is an 84-year-old female who has significant past medical history of CVA with residual right hemiparesis oropharyngeal dysphagia, PAF anticoagulated on Eliquis, HTN, HLD, CKD stage III baseline creatinine 1.0, recurrent aspiration pneumonia on chronic oxygen therapy 2 L , hx of recurrent UTI -VRE, who presents to ED secondary to failure to thrive and weakness x10 days. Patient resides at [facility]. Remained tested positive on 05/23 for coronavirus. Subsequently patient tested positive on 05/29 via antigen test. Due to retesting positive on 05/23 she was started on dexamethasone therapy. Due to comorbidities she was also started on azithromycin 5-day course on 05/29. This was completed on 06/02. Chest x-ray continued to show pneumonia and therefore she was started on Levaquin 750 mg. This was reduced to 250 mg secondary to renal dysfunction. She continues to remain on dexamethasone although patient continues to decline from functional standpoint. 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 She has also had increased renal function and therefore was sent to ER. Patient has underlying dementia and unable to obtain history from patient. History was obtained from ED provider and nursing facility. Facility states she had no documented fever or worsening respiratory status. She is chronically on 2 L of O2 during the day and 3 L at bedtime. She does have recurrent UTI - VRE. In ED pt remained hemodynamically stable, although she was intermittently tachycardia and one time BP on 96/69. Lab abnormalities notable for wbc 15.79k, h/h 15.6/48.4, bun 52, cr 1.66, ast 67, alt 113, TSH 8.2, free t4 1.15, UA + leuks, epis, bacturia. CXR: RUL patchy airspace opacities, Chronic R lung base consolidation, likely scaring In ED received IV zosyn and IVF. Allergies Allergy/AdvReac Type Severity Reaction Status Date / Time levofloxacin AdvReac SEE BELOW Verified 06/13/20 13:47 Home Medications Medication Instructions Recorded Confirmed Type Desitin Rapid Relief 1 applic TOPICAL HS 08/11/18 06/13/20 History amiodarone 200 mg PO BID 08/11/18 06/13/20 History apixaban 2.5 mg PO BID 08/11/18 06/13/20 History denosumab 60 mg SUBCUT Q6M 08/11/18 06/13/20 History diclofenac sodium 2 g TOPICAL QS 08/11/18 06/13/20 History ergocalciferol (vitamin D2) 50,000 unit PO .Q2WK 08/11/18 06/13/20 History [Vitamin D2] ipratropium-albuterol 2.5 mg INHALATION TID 08/11/18 06/13/20 History metoprolol tartrate 25 mg PO BID 08/11/18 06/13/20 History sertraline 25 mg PO HS 08/11/18 06/13/20 History sodium chloride [Saline Nasal] 2 spray INTRANASAL HS 08/11/18 06/13/20 History atorvastatin 10 mg PO HS 06/13/20 06/13/20 History dexamethasone 6 mg PO DAILY 06/13/20 06/13/20 History famotidine [Pepcid] 20 mg PO BID 06/13/20 06/13/20 History ketoconazole 1 applic TOPICAL SUTH 06/13/20 06/13/20 History levothyroxine 88 mcg PO QAM 06/13/20 06/13/20 History magnesium hydroxide [Milk of 15 ml PO DAILY PRN 06/13/20 06/13/20 History Magnesia] melatonin 1 mg PO HS PRN 06/13/20 06/13/20 History terbinafine HCl 1 applic TOPICAL BID 06/13/20 06/13/20 History zinc oxide 1 applic TOPICAL BID 06/13/20 06/13/20 History Past Med/Surg History Medical History Aspiration into airway Aspiration pneumonia (07/30/13) Atrial fibrillation Bronchitis Chronic respiratory failure with hypoxia, on home O2 therapy CKD (chronic kidney disease), stage III Dementia Depression Dyslipidemia GERD (gastroesophageal reflux disease) History of breast cancer HTN (hypertension) Hypothyroidism Ischemic stroke (02/02/12) Surgical History History of breast surgery Status post mastectomy Family History Other Family history unobtainable due to patient's condition Social History Smoking Status: Former smoker Second Hand Exposure: No; Hx Alcohol Use: No Hx Substance Use: No Preferred Language: Sri Lankan Communication Ability: Impaired Food Service Specialist Required: No Beliefs That Will Affect Care: None marital status: / Current Living Situation: Jail Feels Safe at Home: Yes Assistive Devices: Oxygen - Continuous Review of Systems Review of Systems: All systems reviewed & are unremarkable except as noted in HPI & below Physical Exam Physical Exam: Please refer to Dr. James berry for physical exam findings. Results & Data Results & Data ([facility]) Vital Signs (Past 12 Hours) Vital Signs Temp Pulse Resp BP Pulse Ox 06/13/20 14:00 96 H 18 96/69 L 98 06/13/20 13:46 86 24 99 06/13/20 13:31 93 H 17 127/67 98 06/13/20 13:15 90 25 H 99 06/13/20 13:01 92 H 23 100 06/13/20 13:00 89 20 114/80 100 06/13/20 12:45 86 21 100 06/13/20 12:36 83 18 130/98 99 06/13/20 12:30 90 23 98 06/13/20 12:25 95 H 22 97 06/13/20 12:00 88 18 100/68 97 06/13/20 11:58 37.2 C 101 H 18 116/67 98 Laboratory Results Short CBC 06/13/20 06/13/20 Range/Units 12:19 12:19 WBC 15.79 H (4.8-10.8) K/uL Hgb 15.6 (12.0-16.0) g/dL Hct 48.4 H (37-47) % Plt Count 152 (130-400) K/uL Creatinine 1.66 H (0.6-1.2) mg/dl BMP 06/13/20 12:19 Sodium 142 Potassium 4.6 Chloride 107 Carbon Dioxide 29 BUN 52 H Creatinine 1.66 H Glucose 129 H Calcium 8.1 L Cardiac Enzymes 06/13/20 Range/Units 12:19 Total Creatine Kinase 49 (26-192) U/L Troponin I 0.030 (0-0.045) ng/ml Liver Function 06/13/20 Range/Units 12:19 Total Bilirubin 0.9 (0.2-1) mg/dl AST 67 H (15-37) U/L ALT 113 H (12-78) U/L Alkaline Phosphatase 64 (45-117) U/L Albumin 2.2 L (3.4-5.0) gm/dl Urine 06/13/20 Range/Units Unknown Urine Color Dark Yellow Urine Appearance Turbid A (Clear) Urine pH >= 9.0 H (4.5-7.5) Ur Specific Thomas 1.020 (1.000-1.030) Urine Protein 4+ H (Negative) Urine Glucose (UA) Trace H (Negative) POSITIVE COVID ANTIGEN TEST 05/29 at [facility] Diagnostic Findings CXR: IMPRESSION: 1. Consolidation at the right lung base is likely chronic, with associated volume loss in the right lung and leftward shift of the mediastinum. This is similar in appearance to 08/25/2018. 2. Patchy airspace opacities are seen in the right upper lung. Correlate clinically for evidence of a superimposed infectious/inflammatory pneumonitis. 3. Cardiomegaly without radiographic evidence of congestive failure. Medications Administered Discontinued Medications Sodium Chloride (Nss 1000ml) 1,000 mls @ 999 mls/hr IV .Q1H1M REY Stop: 06/13/20 13:00 Last Infusion: 06/13/20 13:31 Dose: 0 mls/hr Documented by: [id number] Admin: 06/13/20 12:30 Dose: 999 mls/hr Documented by: [id number] ECG Rate (beats per minute): 99 Rhythm: atrial fibrillation Findings: + prolonged QT (qtc 482ms) Code Status & VTE Plan Code Status DNR VTE Prophylaxis Plan VTE Prophylaxis will be ordered: No Reason for no VTE drug order: Contraindicated Reason for no VTE mechanical prophylaxis: Treatment not indicated Supervising Physician Co-Signing Physician Notes Pt was seen and examined. Agreed with Adia STEELE assessment an plan. 84-year-old female with significant past medical history of CVA with residual right hemiparesis oropharyngeal dysphagia, PAF anticoagulated on Eliquis, HTN, HLD, CKD stage III baseline creatinine 1.0, recurrent aspiration pneumonia on chronic oxygen therapy 2 L , hx of recurrent UTI -VRE present to the ED for weakness and failure to thrive for the past week. Pt was testing positive for COVID 19 on 05/29. She has been having poor appetite. She has been on Dexamethasone since 05/23. She completed a course of antibiotic with Zithromax and Levaquin. She has been required more help due to the weakness. She is very high risk for aspiration and was admitted in the past for that. Pt said that her breathing is fine. She is on chronic oxygen supplement therapy. Pt denies any chest pain, palpitation, dizziness, fever, chills, SOB. CXR showed Patchy airspace opacities are seen in the right upper lung. General- No acute distress, Frail Head- atraumatic Eyes- PERRL, EOMI, ENT- oropharynx clear Neck- supple, no JVD Lungs- diminished BS, +coarse BS Heart- regular rhythm; no murmur Abdomen- normal bowel sounds, soft, nontender Extremities- no calf tenderness Neuro- alert, alert, PERRL, EOMI; no facial palsy; no dysarthria Skin- warm & dry Weakness Mostly due to dehydration due to poor oral intake and recent COVID 19 illness Continue IVF PT/OT eval Fall precaution Pneumonia COVID 19 History of aspiration pneumonia Received IV zosyn and IVF in the ER. Will continue IV abx with zosyn for now Pt has been on steroid since 05/23, will taper dexamethasone to 4mg daily, then continue taper in the next few days and stop it. Acute kidney Injury Mostly due to dehydration from poor intake Creatinine on admission 1.3 Continue IVF Monitor BMP UA abnormal UA on admission positive for leukocytes and bacteria. Will follow urine cx, blood cx and monitor cbc. Continue IV Zosyn for now Elevated Liver enzymes possible related to dehydration. Will monitor Liver enzymes. Please refer to Georgina STEELE documentation for other problems MD James
[2020-06-13] MEDS ORDERED: SODIUM CHLORIDE 0.9% 1000ML 500 ML IV ONE (15:06)
[2020-06-13] MEDS ORDERED: POLYETHYLENE (MIRALAX) 17 GM PACK PO PRN (16:31)
[2020-06-13] MEDS ORDERED: ACETAMINOPHEN 325 MG TAB PO PRN (16:31)
--- NOTE | 2020-06-13 16:37 | Electrocardiogram Report ---
Test Reason : Blood Pressure : / mmHG Vent. Rate : 099 BPM Atrial Rate : 208 BPM P-R Int : 000 ms QRS Dur : 106 ms QT Int : 376 ms P-R-T Axes : -50 262 045 degrees QTc Int : 482 ms Poor data quality, interpretation may be adversely affected Atrial flutter with variable A-V block Right superior axis deviation Abnormal ECG When compared with ECG of 25-AUG-2018 00:09, QRS duration has increased Confirmed by Cody Griffith ([id number]) on 06/13/2020 4:36:57 PM Referred By: Confirmed By:Cody Griffith
[2020-06-13] MEDS: SODIUM CHLORIDE 0.9% 1000ML 1,000 ML IV SCH (16:52)
[2020-06-13] MEDS ORDERED: INFLUENZA ADMINISTRATION CHARGE ONE (17:30)
[2020-06-13] MEDS ORDERED: INFLUENZA VACCINE HIGH DOSE 65+ 0.7 ML SYR IM ONE (17:30)
[2020-06-13] MEDS: AMIODARONE 200 MG TAB PO SCH (20:10)
[2020-06-13] MEDS: METOPROLOL TARTRATE 25 MG TAB PO SCH (20:11)
[2020-06-13] MEDS: SERTRALINE HCL 50 MG TABLET PO SCH (20:11)
[2020-06-13] MEDS: APIXABAN 2.5 MG TAB PO SCH (20:11)
[2020-06-13] MEDS: FAMOTIDINE 20 MG TAB PO SCH (20:12)
[2020-06-13] MEDS: PIPERACILLIN/TAZOBACTAM 3.375 GM in DEXTROSE 5% 100 ML IV SCH (21:22)
[2020-06-14] MEDS: LEVOTHYROXINE SODIUM 88 MCG TABLET PO SCH (05:34)
[2020-06-14] MEDS: SODIUM CHLORIDE 0.9% 1000ML 1,000 ML IV SCH (05:38)
[2020-06-14 08:06] LABS: Albumin Globulin Ratio 0.6 (0.9-2); Albumin Level 1.8 gm/dl (3.4-5.0); BUN Creatinine Ratio 35.2 (10-20); Bilirubin,Total 0.9 mg/dl (0.2-1); Creatinine Clr Calc Pharmacy 33.5 ml/min; Est GFR (African American) 61.3; Est GFR (Non-African American) 52.9; Globulin 3.1 gm/dl (2.5-4.0); Magnesium 2.2 mg/dl (1.8-2.4); Potassium 4.1 mmol/L (3.5-5.1); Total Protein 4.9 gm/dl (6.4-8.2)
[2020-06-14 08:14] LABS: Hematocrit (blood only) 43.6 % (37-47); Hemoglobin 14.2 g/dL (12.0-16.0); Mean Corpuscular Hemoglobin 30.5 pg (25-34); Mean Corpuscular Hgb Conc 32.6 g/dL (32-36); Mean Corpuscular Volume 93.8 fL (80-100); Mean Platelet Volume 12.6 fL (7.4-10.4); Platelet Count 108 K/uL (130-400); RDW Coefficient of Variation 16.2 % (11.5-14.5); RDW Standard Deviation 55.3 fL (36.4-46.3); Red Blood Count 4.65 M/uL (4.2-5.4); White Blood Count 10.11 K/uL (4.8-10.8)
[2020-06-14 08:15] LABS: Basophils # (auto) 0.01 K/uL (0-0.2); Basophils % (auto) 0.1 %; Eosinophils # (auto) 0.02 K/uL (0-0.5); Eosinophils % (auto) 0.2 %; Immature Granulocytes # (auto) 0.03 K/uL (0.00-0.02); Immature Granulocytes % (auto) 0.3 %; Lymphocytes # (auto) 1.09 K/uL (1.2-3.4); Lymphocytes % (auto) 10.8 %; Monocytes # (auto) 0.85 K/uL (0.11-0.59); Monocytes % (auto) 8.4 %; Neutrophils # (auto) 8.11 K/uL (1.4-6.5); Neutrophils % (auto) 80.2 %
[2020-06-14] MEDS ORDERED: dexAMETHasone 4 MG TAB PO SCH (09:00)
[2020-06-14] MEDS: APIXABAN 2.5 MG TAB PO SCH (09:07)
[2020-06-14] MEDS: FAMOTIDINE 20 MG TAB PO SCH (09:07)
[2020-06-14] MEDS: AMIODARONE 200 MG TAB PO SCH ×2 (09:07→20:29)
[2020-06-14] MEDS: METOPROLOL TARTRATE 25 MG TAB PO SCH (09:07)
[2020-06-14] MEDS: PIPERACILLIN/TAZOBACTAM 3.375 GM in DEXTROSE 5% 100 ML IV SCH ×2 (09:14→17:45)
--- NOTE | 2020-06-14 13:34 | Electrocardiogram Report ---
Test Reason : Blood Pressure : / mmHG Vent. Rate : 082 BPM Atrial Rate : 082 BPM P-R Int : 208 ms QRS Dur : 092 ms QT Int : 426 ms P-R-T Axes : 036 105 008 degrees QTc Int : 497 ms Probable Atrial flutter with controlled ventricular response Rightward axis Prolonged QT Abnormal ECG When compared with ECG of 13-JUN-2020 11:52, No significant change Confirmed by Simone Ferrer ([id number]) on 06/14/2020 1:34:31 PM Referred By: Sofy Nash Confirmed By:Simone Ferrer
[2020-06-14] MEDS ORDERED: METOPROLOL TARTRATE 1 MG/ML VIAL IV PRN (15:07)
--- NOTE | 2020-06-14 18:19 | Hospitalist Progress Note ---
Date of Service June 14, 2020 Assessment & Plan (1) COVID-19 virus infection: Patient is an 84 yr female with H/O CVA with residual right hemiparesis oropharyngeal dysphagia, PAF anticoagulated on Eliquis, HTN, HLD, CKD stage III baseline creatinine 1.0, recurrent aspiration pneumonia on chronic oxygen therapy 2 L , hx of recurrent UTI -VRE, who presents to ED secondary to failure to thrive and weakness x10 days. 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 This is similar in appearance to 08/25/2018. Patchy airspace opacities are seen in the right upper lung. Correlate clinically for evidence of a superimposed infectious/inflammatory pneumonitis. Cardiomegaly without radiographic evidence of congestive failure. Normal Proclcitonin On Dexamethasone 6mg daily starting 05/23. Also completed course of azithromycin and levaquin. May not benefit from coalescent plasma, remdesivir currently Saturating well on 2 L of supplemental oxygen Will taper down steroids as able Leukocytosis normalized Lactate levels normalized with IV fluids Failed dysphagia screen High risk for aspiration Speech therapy evaluation Palliative care consulted to address goals of care Gentle IV fluids as needed Thrombocytopenia Monitor for bleeding issues Also monitor platelet count Need to hold Lovenox if platelet count continues to drop Possible Sepsis Lactic acidosis Possible sources: Aspiration pneumonia, COVID-19 infection, UTI Abnormal UA Rule out UTI H/O Enterococcus VRE Blood, urine culture pending Continue Zosyn for now (2) Chronic respiratory failure with hypoxia, on home O2 therapy: H/O Recurrent aspiration PNA due to H/O of CVA with dysphagia and failure to follow proper diet CXR as above completed course of oral azithromycin/ Levaquin On Zosyn for now Aspiration precautions NPO for now as failed dysphagia screen (3) Acute worsening of stage 3 chronic kidney disease: KRISS on CKD III Cr:1.6>>0.97 Received IV fluids Avoid nephrotoxic agents as able next (4) Leukocytosis: Likely due to steroids Also to R/O infection (5) Elevated LFTs: Mild transaminitis LFTs trending down on amiodarone and statin hold statin for now Monitor LFTs (6) Atrial fibrillation: continue amiodarone and metoprolol as able Anticoagulated on Eliquis Eliquis held while NPO Continue therapeutic Lovenox for now (7) HTN (hypertension): continue metoprolol (8) History of stroke: Continue apixaban Resume statin as able (9) Dyslipidemia: statin on hold (10) DVT prophylaxis: Eliquis held Lovenox SQ for now Code Status DNI/DNR Disposition: To be determined Follow up: PCP Dr. Hale/Senia at [facility] upon discharge, PT/OT consulted, case management consulted Admission and Anticipated Discharge Date Admission Date: June 13, 2020 Subjective Patient is seen and examined at bedside Poor historian States feeling weak and tired Failed dysphagia screen today Denies chest pain, dyspnea, abdominal pain, nausea Afebrile Saturating well on 2 Liters of oxygen Review of Systems Review of Systems: All systems reviewed & are unremarkable except as noted in HPI & below Physical Exam Physical Exam: Physical Exam: Vitals signs as noted above General Appearance:Thin, Frail, no apparent distress Head: normocephalic, Atraumatic, +Cold Sore Eyes: normal inspection, EOMI Neck: supple, Trachea midline Respiratory/Chest: Decreased breath sounds, Basal rales Cardiovascular: Irregularly irregular, No murmur Abdomen/GI:Soft, Non tender, Bowel sounds present Extremities/Musculoskelatal:normal inspection, no edema Neurologic/Psych:Alert, awake, grossly no focal neurological deficits Skin: normal color, warm Results & Data Results & Data ([facility]) Vital Signs (Past 12 Hours) Vital Signs Temp Pulse Pulse Resp BP Pulse Ox Pulse Ox 06/14/20 17:14 89 06/14/20 15:00 36.8 C 84 20 106/76 96 06/14/20 12:28 92 06/14/20 11:00 36.1 C L 86 16 106/76 95 06/14/20 08:01 36.4 C L 81 16 119/76 99 06/14/20 07:08 79 Laboratory Results Short CBC 06/14/20 Range/Units 07:10 WBC 10.11 (4.8-10.8) K/uL Hgb 14.2 (12.0-16.0) g/dL Hct 43.6 (37-47) % Plt Count 108 L (130-400) K/uL BMP 06/14/20 07:10 Sodium 143 Potassium 4.1 Chloride 115 H Carbon Dioxide 28 BUN 34 H Creatinine 0.97 D Glucose 69 L Calcium 7.0 L Liver Function 06/14/20 Range/Units 07:10 Total Bilirubin 0.9 (0.2-1) mg/dl AST 47 H (15-37) U/L ALT 79 H (12-78) U/L Alkaline Phosphatase 53 (45-117) U/L Albumin 1.8 L (3.4-5.0) gm/dl
[2020-06-14] MEDS: SERTRALINE HCL 50 MG TABLET PO SCH (20:06)
[2020-06-14] MEDS: FAMOTIDINE 20 MG in SYRINGE 3 ML IV SCH (20:28)
[2020-06-14] MEDS: ENOXAPARIN INJ 60 MG/0.6 ML SYR SQ SCH (20:29)
[2020-06-15] MEDS: PIPERACILLIN/TAZOBACTAM 3.375 GM in DEXTROSE 5% 100 ML IV SCH ×3 (01:29→17:58)
[2020-06-15 09:15] LABS: INR 1.4 (0.9-1.1); Prothrombin Time 14.1 Seconds (9.0-12.0)
[2020-06-15 09:19] LABS: Hematocrit (blood only) 47.4 % (37-47); Hemoglobin 15.1 g/dL (12.0-16.0); Mean Corpuscular Hemoglobin 30.1 pg (25-34); Mean Corpuscular Hgb Conc 31.9 g/dL (32-36); Mean Corpuscular Volume 94.4 fL (80-100); Mean Platelet Volume 12.4 fL (7.4-10.4); Platelet Count 165 K/uL (130-400); RDW Coefficient of Variation 16.4 % (11.5-14.5); RDW Standard Deviation 56.4 fL (36.4-46.3); Red Blood Count 5.02 M/uL (4.2-5.4); White Blood Count 11.92 K/uL (4.8-10.8)
[2020-06-15 09:22] LABS: Albumin Level 2.2 gm/dl (3.4-5.0); BUN Creatinine Ratio 31.1 (10-20); Calcium 7.7 mg/dl (8.5-10.1); Creatinine Clr Calc Pharmacy 28.3 ml/min; Est GFR (African American) 52.6; Est GFR (Non-African American) 45.4; Magnesium 2.2 mg/dl (1.8-2.4); Potassium 4.4 mmol/L (3.5-5.1)
[2020-06-15 09:25] LABS: Albumin Globulin Ratio 0.6 (0.9-2); Bilirubin,Total 0.8 mg/dl (0.2-1); Globulin 3.7 gm/dl (2.5-4.0); Total Protein 5.9 gm/dl (6.4-8.2)
[2020-06-15 09:27] LABS: Echinocytes 1+; Eosinophils # (auto) 0.01 K/uL (0-0.5); Eosinophils % (auto) 0.1 %; Immature Granulocytes # (auto) 0.02 K/uL (0.00-0.02); Immature Granulocytes % (auto) 0.2 %; Lymphocytes # (auto) 1.82 K/uL (1.2-3.4); Lymphocytes % (auto) 15.3 %; Monocytes # (auto) 0.78 K/uL (0.11-0.59); Monocytes % (auto) 6.5 %; Neutrophils # (auto) 9.29 K/uL (1.4-6.5); Neutrophils % (auto) 77.9 %
[2020-06-15] MEDS: LEVOTHYROXINE SODIUM 44 MCG in SYRINGE 0 ML IV SCH (09:55)
[2020-06-15] MEDS: dexAMETHasone 4 MG in SYRINGE 0 ML IV SCH (09:55)
[2020-06-15] MEDS: AMIODARONE 200 MG TAB PO SCH ×2 (09:55→20:24)
[2020-06-15] MEDS: ENOXAPARIN INJ 60 MG/0.6 ML SYR SQ SCH ×2 (13:01→21:33)
[2020-06-15] MEDS: FAMOTIDINE 20 MG in SYRINGE 3 ML IV SCH ×2 (13:01→21:33)
--- NOTE | 2020-06-15 15:32 | Palliative Care Consultation ---
Date of Consultation June 15, 2020 Assessment & Plan (1) Palliative care encounter: I asked Ivette to tell me her thoughts about the PEG tube and she tells me that she has had one in the past, initially after her stroke. She would want to have that placed again to supplement her nutrition. She understands that without supplemental feedings, she will . She also understands that feeding tubes in someone her age and physical condition are not ideal for improving nutritional status but wants to proceed anyway. I spoke with her nephew, Taye, who is her POA. He tells me that she has a living will that had said no artificial feeding but she choose PEG tube the first time in spite of this. He is confident that she understands what to expect and that this is her decision. He recognizes that there are potential complications of infection, discomfort, aspiration and that the tube may not be of benefit to her at some point in the future. He tells me that he is comfortable with making decisions about managing PEG tube for her comfort and best interest in the future if she is unable to do so. I discussed this with Dr. Jackson. (2) Cachexia: Currently NPO with aspiration risk. Plan for PEG placement and enteral feeding. (3) Dyspnea: Resolving covid pneumonia. Improved with O2 adjustment. History of Present Illness Reason for Consultation: goals of care Requesting Physician: Dr. Rodriguez Attending Physician: Trace Jackson MD History of Present Illness 84 yo lady with h/o CVA and residual dysphagia and right hemiparesis. She has also had h/o recurrent aspiration pneumonia. She has been residing at [facility] and was diagnosed with covid on 05/29. She has received antibiotic treatment x 3, steroids, and remdesivir. She has had improvement in her respira tory status. However, she has not been able to take oral nutrition due to aspiration risk. We have been consulted to assist with goals of care. Ivette is awake and alert. She has some aphasia but is able to be understood. When I sat down to talk to her, the first word she said to me was PEG tube. She has also been asking for Coke. She denies pain but did complain of being a little short of breath. This improved with adjustment of her nasal cannula. Allergies Allergy/AdvReac Type Severity Reaction Status Date / Time levofloxacin AdvReac SEE BELOW Verified 06/13/20 13:47 Home Medications Medication Instructions Recorded Confirmed Type Desitin Rapid Relief 1 applic TOPICAL HS 08/11/18 06/13/20 History amiodarone 200 mg PO BID 08/11/18 06/13/20 History apixaban 2.5 mg PO BID 08/11/18 06/13/20 History denosumab 60 mg SUBCUT Q6M 08/11/18 06/13/20 History diclofenac sodium 2 g TOPICAL QS 08/11/18 06/13/20 History ergocalciferol (vitamin D2) 50,000 unit PO .Q2WK 08/11/18 06/13/20 History [Vitamin D2] ipratropium-albuterol 2.5 mg INHALATION TID 08/11/18 06/13/20 History metoprolol tartrate 25 mg PO BID 08/11/18 06/13/20 History sertraline 25 mg PO HS 08/11/18 06/13/20 History sodium chloride [Saline Nasal] 2 spray INTRANASAL HS 08/11/18 06/13/20 History atorvastatin 10 mg PO HS 06/13/20 06/13/20 History dexamethasone 6 mg PO DAILY 06/13/20 06/13/20 History famotidine [Pepcid] 20 mg PO BID 06/13/20 06/13/20 History ketoconazole 1 applic TOPICAL SUTH 06/13/20 06/13/20 History levothyroxine 88 mcg PO QAM 06/13/20 06/13/20 History magnesium hydroxide [Milk of 15 ml PO DAILY PRN 06/13/20 06/13/20 History Magnesia] melatonin 1 mg PO HS PRN 06/13/20 06/13/20 History terbinafine HCl 1 applic TOPICAL BID 06/13/20 06/13/20 History zinc oxide 1 applic TOPICAL BID 06/13/20 06/13/20 History Patient History Medical History Aspiration into airway Aspiration pneumonia (07/30/13) Atrial fibrillation Bronchitis Chronic respiratory failure with hypoxia, on home O2 therapy CKD (chronic kidney disease), stage III Dementia Depression Dyslipidemia GERD (gastroesophageal reflux disease) History of breast cancer HTN (hypertension) Hypothyroidism Ischemic stroke (02/02/12) Surgical History History of breast surgery Status post mastectomy Family History Other Family history unobtainable due to patient's condition Social History Smoking Status: Former smoker Second Hand Exposure: No; Hx Alcohol Use: No Hx Substance Use: No Preferred Language: Comoran Communication Ability: Impaired Sample Examiner Required: No Beliefs That Will Affect Care: None marital status: / Current Living Situation: Alf Feels Safe at Home: Yes Assistive Devices: Denture - Upper and Oxygen - Continuous Review of Systems Review of Systems: [place] Symptom Assessment Scale Pain 0/3 Dyspnea 1/3 Nausea 0/3 Anxiety 0/3 Drowsiness 0/3 Palliative Performance Score 30% Physical Exam Constitutional: + cachectic and + frail appearing Respiratory: + uses accessory muscles Musculoskeletal: muscle atrophy Neurologic: right sided weakness Psychiatric: Orientation: alert and oriented x 3 Results & Data ([facility]) Vital Signs (Past 12 Hours) Vital Signs Temp Pulse Pulse Resp BP Pulse Ox 06/15/20 11:00 98.1 F 81 18 118/79 98 06/15/20 09:00 87 06/15/20 07:47 97.9 F 95 H 20 129/91 98 06/15/20 05:13 98.2 F 88 20 108/70 96 PG Care Time/CCT Total # of Minutes Spent Total Time Spent with Patient: Total time spent is greater than 50% in coordination of care (as documented) at patient's floor/unit and/or counseling patient:70 minutes total time spent with more than 50% of time spent on discussing goals of care, symptom management and family update. Coding Level of Care Code 53137 Inpt Consult Level 4 Diagnoses Palliative care encounter Z51.5 Cachexia R64 Dyspnea R06.00
[2020-06-15] MEDS: SERTRALINE HCL 50 MG TABLET PO SCH (20:24)
--- NOTE | 2020-06-15 20:31 | Hospitalist Progress Note ---
Date of Service June 15, 2020 Assessment & Plan (1) Pneumonia: Chest x-ray upon admission showed consolidation right lung base (possibly chronic) and RUL densities. Suspected COVID +/- aspiration pneumonia. Continue IV piperacillin / tazobactam and dexamethasone. COST RECOVERY TECHNICIAN eval as discussed below. (2) COVID-19 virus infection: Diagnosed with COVID-19 at [facility]. Received dexamethasone and antibiotics there. (3) Aspiration into airway: Apparently has chronic aspiration. Underlying cerebrovascular disease. May have aspiration pneumonia (vs chronic changes on chest x-ray). Seen by COST RECOVERY TECHNICIAN. High risk for aspiration. NPO status recommended. (4) Atrial fibrillation: Rate controlled on metoprolol and amiodarone (although both on hold due to NPO status). Usually anticoagulated with apixaban, but now receiving enoxaparin due to NPO status. (5) Cerebrovascular disease: S/P ischemic stroke, probably embolic secondary to AF. Residual right hemiparesis, dysarthria, dysphagia. Continue anticoagulation. (6) HTN (hypertension): Hemodynamically stable. Metoprolol held due to NPO status. (7) CKD (chronic kidney disease), stage III: Serum creatinine 1.1. Follow. (8) Hypothyroidism: Currently receiving levothyroxine intravenously due to NPO status. (9) Protein calorie malnutrition: Severe protein calorie malnutrition. Poor PO intake prior to admission, probably due to COVID-19. Current no oral intake due to aspiration risk. Patient indicates that she would like to proceed with PEG (she has had one before). Discuss PEG with GI; will need to hold anticoagulants. May be several days until PEG can be done. Consider NG feeding tube. (10) Decubitus ulcer: Stage III decubitus ulcer left buttock (present on admission). Wound Care Nursing consulted. Avoid pressure. Continue local care. (11) Palliative care encounter: Palliative Medicine consult requested. Patient indicates that she would like to proceed with a PEG if unable to swallow safely; she also indicates that she would like to drink some soda even if it could lead to aspiration. (12) Do not resuscitate status: As noted. (13) DVT prophylaxis: Currently receiving SQ enoxaparin. (14) Discharge planning issues: Anticipated return to [facility] when medically stable. Admission and Anticipated Discharge Date Admission Date: June 13, 2020 Subjective Recheck for COVID-19 and other problems. Patient seen in their room around 1210. No fever. Occasional cough. Denies SOB. Remains NPO due to aspiration risk. Review of Systems: Constitutional- no fever. Cardiac- no chest pain. Pulmonary- as noted above. GI- 2 BM's yesterday, none reported today; no nausea, vomiting, melena, hematochezia. - nursing reports some blood on PureWick pad . Otherwise, as noted above. Physical Exam Constitutional: no acute distress Eyes: + anicteric sclerae ENMT: ulceration right oral commissure Respiratory: normal respiratory effort, lungs clear to auscultation Cardiovascular: Rate/Rhythm: + irregularly irregular Vessels: no JVD Ext remities: no calf tenderness and no edema Gastrointestinal (Abdomen): normal bowel sounds, soft, nontender, no hepatosplenomegaly Musculoskeletal: Extremities: no cyanosis Skin: no rashes, warm and dry Neurologic: Speech / Cognition: + abnormal speech (dysarthria) Psychiatric: Orientation: alert (essentially Ox3 (did not know date); underst ands circumstances) Speech: + abnormal rate/rhythm/volume of speech (voice soft with some dysarthria) Results & Data Results & Data ([facility]) Vital Signs (Past 12 Hours) Vital Signs Temp Pulse Pulse Resp BP Pulse Ox 06/15/20 19:42 36.7 C 95 H 18 118/80 95 06/15/20 16:53 87 06/15/20 15:41 36.7 C 95 H 20 105/70 99 06/15/20 11:00 36.7 C 81 18 118/79 98 06/15/20 09:00 87 Laboratory Results Laboratory Results - last 24 hr 06/15/20 06/15/20 06/15/20 08:24 08:24 08:24 WBC 11.92 H RBC 5.02 Hgb 15.1 Hct 47.4 H MCV 94.4 MCH 30.1 MCHC 31.9 L RDW Std Deviation 56.4 H RDW Coeff of Gregory 16.4 H Plt Count 165 D MPV 12.4 H Immature Gran % (Auto) 0.2 Neut % (Auto) 77.9 Lymph % (Auto) 15.3 [place] % (Auto) 6.5 Eos % (Auto) 0.1 Baso % (Auto) 0.0 Neut # (Auto) 9.29 H Lymph # (Auto) 1.82 [place] # (Auto) 0.78 H Eos # (Auto) 0.01 Baso # (Auto) 0.00 Immature Gran # (Auto) 0.02 Echinocytes 1+ PT 14.1 H INR 1.4 H Sodium 143 Potassium 4.4 Chloride 112 H Carbon Dioxide 25 Anion Gap 7.0 BUN 34 H Creatinine 1.10 Est Cr Clr Drug Dosing 28.3 Est GFR ( Amer) 52.6 Est GFR (Non-Af Amer) 45.4 BUN/Creatinine Ratio 31.1 H Glucose 77 Calcium 7.7 L Magnesium 2.2 Total Bilirubin 0.8 AST 68 H ALT 92 H Alkaline Phosphatase 65 Total Protein 5.9 L D Albumin 2.2 L Globulin 3.7 Albumin/Globulin Ratio 0.6 L Procalcitonin 06/15/ 08:24 WBC RBC Hgb Hct MCV MCH MCHC RDW Std Deviation RDW Coeff of Gregory Plt Count MPV Immature Gran % (Auto) Neut % (Auto) Lymph % (Auto) [place] % (Auto) Eos % (Auto) Baso % (Auto) Neut # (Auto) Lymph # (Auto) [place] # (Auto) Eos # (Auto) Baso # (Auto) Immature Gran # (Auto) Echinocytes PT INR Sodium Potassium Chloride Carbon Dioxide Anion Gap BUN Creatinine Est Cr Clr Drug Dosing Est GFR ( Amer) Est GFR (Non-Af Amer) BUN/Creatinine Ratio Glucose Calcium Magnesium Total Bilirubin AST ALT Alkaline Phosphatase Total Protein Albumin Globulin Albumin/Globulin Ratio Procalcitonin 0.11 (1) Pneumonia Laterality: right Lung location: unspecified part of lung Pneumonia type: due to unspecified organism Qualified Code(s): J18.9 - Pneumonia, unspecified organism
[2020-06-15] MEDS: D5W AND 1/2NSS 1,000 ML IV SCH (22:13)
[2020-06-16] MEDS: PIPERACILLIN/TAZOBACTAM 3.375 GM in DEXTROSE 5% 100 ML IV SCH ×3 (02:38→17:59)
[2020-06-16 08:39] LABS: Albumin Level 2.1 gm/dl (3.4-5.0); BUN Creatinine Ratio 29.7 (10-20); Bilirubin Direct 0.3 mg/dl (0-0.2); Calcium 6.9 mg/dl (8.5-10.1); Creatinine Clr Calc Pharmacy 28.9 ml/min; Est GFR (African American) 49.9
[2020-06-16 08:42] LABS: Albumin Globulin Ratio 0.6 (0.9-2); Bilirubin,Total 0.7 mg/dl (0.2-1); Globulin 3.3 gm/dl (2.5-4.0); Total Protein 5.4 gm/dl (6.4-8.2)
[2020-06-16] MEDS: AMIODARONE 200 MG TAB PO SCH ×2 (09:52→21:27)
[2020-06-16] MEDS: FAMOTIDINE 20 MG in SYRINGE 3 ML IV SCH ×2 (09:52→19:54)
[2020-06-16] MEDS: ENOXAPARIN INJ 60 MG/0.6 ML SYR SQ SCH ×2 (09:53→21:50)
[2020-06-16] MEDS: dexAMETHasone 4 MG in SYRINGE 0 ML IV SCH (09:53)
[2020-06-16] MEDS: D5W AND 1/2NSS 1,000 ML IV SCH ×2 (11:26→23:46)
--- NOTE | 2020-06-16 17:50 | Hospitalist Progress Note ---
Date of Service June 16, 2020 Assessment & Plan (1) Pneumonia: Chest x-ray upon admission showed consolidation right lung base (possibly chronic) and RUL densities. Suspected COVID +/- aspiration pneumonia. Continue IV piperacillin / tazobactam and dexamethasone. COMMUNITY OUTREACH WORKER eval as discussed below. (2) COVID-19 virus infection: Diagnosed with COVID-19 at [facility]. Received dexamethasone and antibiotics there. (3) Aspiration into airway: Apparently has chronic aspiration. Underlying cerebrovascular disease. May have aspiration pneumonia (vs chronic changes on chest x-ray). Seen by COMMUNITY OUTREACH WORKER. High risk for aspiration. NPO status recommended. (4) Atrial fibrillation: Rate controlled on metoprolol and amiodarone (although both on hold due to NPO status). Usually anticoagulated with apixaban, but now receiving enoxaparin due to NPO status. (5) Cerebrovascular disease: S/P ischemic stroke, probably embolic secondary to AF. Residual right hemiparesis, dysarthria, dysphagia. Continue anticoagulation. (6) HTN (hypertension): Hemodynamically stable. Metoprolol held due to NPO status. (7) CKD (chronic kidney disease), stage III: Serum creatinine 1.15. Follow. (8) Hypothyroidism: Currently receiving levothyroxine intravenously due to NPO status. (9) Protein calorie malnutrition: Severe protein calorie malnutrition. Poor PO intake prior to admission, probably due to COVID-19. Current no oral intake due to aspiration risk. Patient indicates that she would like to proceed with PEG (she has had one before). Discuss PEG with GI; will need to hold anticoagulants. May be several days until PEG can be done. Patient declining NG feeding tube in the interim. (10) Decubitus ulcer: Stage III decubitus ulcer left buttock (present on admission). Wound Care Nursing consulted. Avoid pressure. Continue local care. (11) Palliative care encounter: Palliative Medicine consult requested. Patient indicates that she would like to proceed with a PEG if unable to swallow safely; she also indicates that she would like to drink some soda even if it could lead to aspiration. (12) Do not resuscitate status: As noted. (13) DVT prophylaxis: Currently receiving SQ enoxaparin. (14) Discharge planning issues: Anticipated return to [facility] when medically stable. Admission and Anticipated Discharge Date Admission Date: June 13, 2020 Subjective Recheck for COVID-19 and other problems. Patient seen in their room around 0940. No fever. Occasional cough. No SOB. Remains NPO due to aspiration risk. No significant PO intake for some time. Patient confirms that she would like to proceed with PEG. She initially agreed to NG feeding tube to use until PEG placed, but subsequently declined. Review of Systems: Constitutional- no fever. Cardiac- no chest pain. Pulmonary- as noted above. GI- 2 BM's 06/14, none reported today; no nausea, vomiting, melena, h ematochezia. - nursing reported some blood on PureWick pad yesterday. Otherwise, as noted above. Physical Exam Constitutional: no acute distress Eyes: + anicteric sclerae Respiratory: normal respiratory effort, lungs clear to auscultation Cardiovascular: Rate/Rhythm: + irregularly irregular Vessels: no JVD Extremities: no calf tenderness and no edema Gastrointestinal (Abdomen): normal bowel sounds, soft, nontender, no hepatosplenomegaly Musculoskeletal: Extremities: + abnormal strength (right hemiparesis); no cyanosis Skin: no rashes, warm and dry Neurologic: Speech / Cognition: + abnormal speech (dysarthria) Psychiatric: Orientation: alert and oriented x 3 (O x 3 except for exact date) Speech: + abnormal rate/rhythm/volume of speech (voice soft with some dysarthria) Results & Data Results & Data ([facility]) Vital Signs (Past 12 Hours) Vital Signs Temp Pulse Resp BP Pulse Ox 06/16/20 14:58 36.4 C L 98 H 106/73 96 06/16/20 11:01 36.5 C 74 18 127/78 94 06/16/20 07:43 36.5 C 101 H 20 119/77 97 Laboratory Results 06/15/20 08:24 06/16/20 08:02 (1) Pneumonia Laterality: right Lung location: unspecified part of lung Pneumonia type: due to unspecified organism Qualified Code(s): J18.9 - Pneumonia, unspecified organism
[2020-06-16] MEDS: SERTRALINE HCL 50 MG TABLET PO SCH (21:27)
[2020-06-17] MEDS: PIPERACILLIN/TAZOBACTAM 3.375 GM in DEXTROSE 5% 100 ML IV SCH ×3 (01:24→19:10)
--- NOTE | 2020-06-17 08:59 | Hospitalist Progress Note ---
Date of Service June 17, 2020 Assessment & Plan (1) Pneumonia: Chest x-ray upon admission showed consolidation right lung base (possibly chronic) and RUL densities. Suspected COVID +/- aspiration pneumonia. Continue IV piperacillin / tazobactam and dexamethasone. WEB OPERATIONS LEAD eval as discussed below. (2) COVID-19 virus infection: Diagnosed with COVID-19 at [facility]. Received dexamethasone and antibiotics there. (3) Aspiration into airway: Apparently has chronic aspiration. Underlying cerebrovascular disease. May have aspiration pneumonia (vs chronic changes on chest x-ray). Seen by WEB OPERATIONS LEAD. High risk for aspiration. NPO status recommended. Patient requesting PEG as discussed below. (4) Atrial fibrillation: Rate controlled on metoprolol and amiodarone (although both on hold due to NPO status). Usually anticoagulated with apixaban, but now receiving enoxaparin due to NPO status. (5) Cerebrovascular disease: S/P ischemic stroke, probably embolic secondary to AF. Residual right hemiparesis, dysarthria, dysphagia. Continue anticoagulation. (6) HTN (hypertension): Hemodynamically stable. Metoprolol held due to NPO status. (7) CKD (chronic kidney disease), stage III: Serum creatinine 0.96. Follow. (8) Hypothyroidism: Currently receiving levothyroxine intravenously due to NPO status. (9) Protein calorie malnutrition: Severe protein calorie malnutrition. Poor PO intake prior to admission, probably due to COVID-19. Current no oral intake due to aspiration risk. Patient indicates that she would like to proceed with PEG (she has had one before). Discuss PEG with GI; will need to hold anticoagulants. May be several days until PEG can be done. Patient declining NG feeding tube in the interim. (10) Decubitus ulcer: Stage III decubitus ulcer left buttock (present on admission). Wound Care Nursing consulted. Avoid pressure. Continue local care. (11) Palliative care encounter: Palliative Medicine consult requested. Patient indicates that she would like to proceed with a PEG if unable to swallow safely; she also indicates that she would like to drink some soda even if it could lead to aspiration. (12) Do not resuscitate status: As noted. (13) DVT prophylaxis: Currently receiving SQ enoxaparin. (14) Discharge planning issues: Anticipated return to [facility] when medically stable. Admission and Anticipated Discharge Date Admission Date: June 13, 2020 Subjective Recheck for recent COVID-19, pneumonia, and other problems. Patient seen in their room around 0810. No fever. Denies cough or dyspnea. Remains NPO due to aspiration risk. No new problems / concerns. Review of Systems: Constitutional- no fever. Cardiac- no chest pain. Pulmonary- as noted above. GI- 1 loose stool reported yesterday, none today; no nausea, vomiting, melena, hematochezia. - nursing reported some blood on PureWick pad 06/15. Otherwise, as noted above. Physical Exam Constitutional: no acute distress Eyes: + anicteric sclerae Respiratory: normal respiratory effort, lungs clear to auscultation Cardiovascular: Rate/Rhythm: + irregularly irregular Vessels: no JVD Extremities: no calf tenderness and no edema Gastrointestinal (Abdomen): normal bowel sounds, soft, nontender, no hepatosplenomegaly Musculoskeletal: Extremities: + abnormal strength (right hemiparesis); no cyanosis Skin: no rashes, warm and dry Neurologic: Speech / Cognition: + abnormal speech (dysarthria) Psychiatric: Orientation: alert and oriented x 3 (O x 3 except for exact date) Speech: + abnormal rate/rhythm/volume of speech (voice soft with some dysarthria) Results & Data Results & Data ([facility]) Vital Signs (Past 12 Hours) Vital Signs Temp Pulse Pulse Pulse Resp BP BP 06/17/20 07:26 36.7 C 86 18 150/96 H 06/17/20 04:00 36.2 C L 85 16 129/76 06/17/20 00:00 35.9 C L 74 87 16 131/80 Pulse Ox 06/17/20 07:26 96 06/17/20 04:00 97 06/17/20 00:00 96 Laboratory Results Laboratory Results - last 24 hr 06/17/20 06/17/20 09:24 09:24 WBC 8.95 RBC 4.64 Hgb 14.1 Hct 43.3 MCV 93.3 MCH 30.4 MCHC 32.6 RDW Std Deviation 55.3 H RDW Coeff of Gregory 16.4 H Plt Count 139 MPV 11.6 H Sodium 138 Potassium 3.9 Chloride 107 Carbon Dioxide 25 Anion Gap 6.0 BUN 26 H Creatinine 0.96 Est Cr Clr Drug Dosing 34.7 Est GFR ( Amer) 62.1 Est GFR (Non-Af Amer) 53.6 BUN/Creatinine Ratio 27.0 H Glucose 155 H Calcium 6.5 L (1) Pneumonia Laterality: right Lung location: unspecified part of lung Pneumonia type: due to unspecified organism Qualified Code(s): J18.9 - Pneumonia, unspecified organism
[2020-06-17] MEDS: FAMOTIDINE 20 MG in SYRINGE 3 ML IV SCH ×2 (09:11→21:31)
[2020-06-17] MEDS: ENOXAPARIN INJ 60 MG/0.6 ML SYR SQ SCH ×2 (09:12→21:30)
[2020-06-17] MEDS: dexAMETHasone 4 MG in SYRINGE 0 ML IV SCH (09:12)
[2020-06-17] MEDS: AMIODARONE 200 MG TAB PO SCH ×2 (09:15→21:31)
[2020-06-17 09:50] LABS: Hematocrit (blood only) 43.3 % (37-47); Hemoglobin 14.1 g/dL (12.0-16.0); Mean Corpuscular Hemoglobin 30.4 pg (25-34); Mean Corpuscular Hgb Conc 32.6 g/dL (32-36); Mean Corpuscular Volume 93.3 fL (80-100); Mean Platelet Volume 11.6 fL (7.4-10.4); Platelet Count 139 K/uL (130-400); RDW Coefficient of Variation 16.4 % (11.5-14.5); RDW Standard Deviation 55.3 fL (36.4-46.3); Red Blood Count 4.64 M/uL (4.2-5.4); White Blood Count 8.95 K/uL (4.8-10.8)
[2020-06-17 10:07] LABS: Calcium 6.5 mg/dl (8.5-10.1); Creatinine Clr Calc Pharmacy 34.7 ml/min; Est GFR (African American) 62.1; Est GFR (Non-African American) 53.6; Potassium 3.9 mmol/L (3.5-5.1)
[2020-06-17] MEDS: D5W AND 1/2NSS 1,000 ML IV SCH ×2 (10:38→23:16)
[2020-06-17] MEDS: SERTRALINE HCL 50 MG TABLET PO SCH (21:31)
[2020-06-18] MEDS: PIPERACILLIN/TAZOBACTAM 3.375 GM in DEXTROSE 5% 100 ML IV SCH ×3 (01:52→17:55)
[2020-06-18 08:00] LABS: BUN Creatinine Ratio 20.4 (10-20); Calcium 6.6 mg/dl (8.5-10.1); Creatinine Clr Calc Pharmacy 39.6 ml/min; Est GFR (Non-African American) 63.9; Potassium 3.3 mmol/L (3.5-5.1)
[2020-06-18] MEDS: ENOXAPARIN INJ 60 MG/0.6 ML SYR SQ SCH ×2 (09:33→22:04)
[2020-06-18] MEDS: dexAMETHasone 4 MG in SYRINGE 0 ML IV SCH (09:34)
[2020-06-18] MEDS: D5W AND 1/2NSS + 20MEQ KCL 20 MEQ/1,000 ML BAG IV SCH ×2 (10:26→22:02)
[2020-06-18] MEDS: FAMOTIDINE 20 MG in SYRINGE 3 ML IV SCH ×2 (10:27→22:03)
[2020-06-18] MEDS: LEVOTHYROXINE SODIUM 44 MCG in SYRINGE 0 ML IV SCH (10:27)
--- NOTE | 2020-06-18 12:22 | Hospitalist Progress Note ---
Date of Service June 18, 2020 Assessment & Plan (1) Pneumonia: Chest x-ray upon admission showed consolidation right lung base and RUL densities. Suspected COVID pneumonia +/- aspiration pneumonia. Continue IV piperacillin / tazobactam and dexamethasone. SALES MARKETING DIRECTOR eval as discussed below. (2) COVID-19 virus infection: Diagnosed with COVID-19 at [facility] on 05/23/20. Received dexamethasone and antibiotics there. (3) Aspiration into airway: Apparently has chronic aspiration. Underlying cerebrovascular disease. May have aspiration pneumonia (vs chronic changes on chest x-ray). Seen by SALES MARKETING DIRECTOR. High risk for aspiration. NPO status recommended. Patient requesting PEG as discussed below. (4) Atrial fibrillation: Rate controlled on metoprolol and amiodarone (although both on hold due to NPO status). Usually anticoagulated with apixaban, but now receiving enoxaparin due to NPO status. (5) Cerebrovascular disease: S/P ischemic stroke, probably embolic secondary to AF. Residual right hemiparesis, dysarthria, dysphagia. Continue anticoagulation. (6) HTN (hypertension): Hemodynamically stable. Metoprolol held due to NPO status. (7) CKD (chronic kidney disease), stage III: Serum creatinine 0.83. Follow. (8) Hypokalemia: K today = 3.3. Intravenous replacement. Follow. (9) Hypothyroidism: Currently receiving levothyroxine intravenously due to NPO status. (10) Protein calorie malnutrition: Severe protein calorie malnutrition. Poor PO intake prior to admission, probably due to COVID-19. Current no oral intake due to aspiration risk. Patient indicates that she would like to proceed with PEG (she has had one before). Discuss PEG with GI; will need to hold anticoagulants for procedure. May be several days until PEG can be done. Patient declining NG feeding tube in the interim. (11) Decubitus ulcer: Stage III decubitus ulcer left buttock (present on admission). Wound Care Nursing consulted. Avoid pressure. Continue local care. (12) Palliative care encounter: Palliative Medicine consult requested. Patient indicates that she would like to proceed with a PEG if unable to swallow safely; she also indicates that she would like to drink some soda even if it could lead to aspiration. (13) Do not resuscitate status: As noted. (14) DVT prophylaxis: Currently receiving SQ enoxaparin. (15) Discharge planning issues: Anticipated return to [facility] when medically stable. Admission and Anticipated Discharge Date Admission Date: June 13, 2020 Subjective Recheck for recent COVID-19, pneumonia, and other problems. Patient seen in their room around 1030. No fever. Denies cough or dyspnea. Remains NPO due to aspiration risk. No new problems / concerns. Review of Systems: Constitutional- no fever. Cardiac- no chest pain. Pulmonary- as noted above. GI- soft brown stool reported yesterday, none today; no nausea, vomiting, melena, hematochezia. - nursing reported some blood on PureWick pad 06/15, none since Otherwise, as noted above. Physical Exam Constitutional: no acute distress Eyes: + anicteric sclerae Respiratory: normal respiratory effort, lungs clear to auscultation Cardiovascular: Rate/Rhythm: + irregularly irregular Vessels: no JVD Extremities: no calf tenderness and no edema Gastrointestinal (Abdomen): normal bowel sounds, soft, nontender, no hepatosplenomegaly Musculoskeletal: Extremities: + abnormal strength (right hemiparesis); no cyan osis Skin: no rashes, warm and dry Neurologic: Speech / Cognition: + abnormal speech (dysarthria) Psychiatric: Orientation: alert and oriented x 3 (O x 3 except for exact date) Speech: + abnormal rate/rhythm/volume of speech (voice soft with some dysarthria) Results & Data Results & Data ([facility]) Vital Signs (Past 12 Hours) Vital Signs Temp Pulse Pulse Resp BP Pulse Ox 06/18/20 11:51 36.8 C 92 H 20 130/69 98 06/18/20 09:00 67 06/18/20 07:46 36.5 C 91 H 18 137/81 97 06/18/20 04:00 84 16 127/62 97 Laboratory Results 06/18/20 06:45 (1) Pneumonia Laterality: right Lung location: unspecified part of lung Pneumonia type: due to unspecified organism Qualified Code(s): J18.9 - Pneumonia, unspecified organism
[2020-06-18] MEDS ORDERED: FUROSEMIDE 20 MG in SYRINGE 0 ML IV ONE (23:05)
[2020-06-19] MEDS: PIPERACILLIN/TAZOBACTAM 3.375 GM in DEXTROSE 5% 100 ML IV SCH ×3 (03:55→18:04)
[2020-06-19 07:44] LABS: BUN Creatinine Ratio 15.3 (10-20); Calcium 6.8 mg/dl (8.5-10.1); Creatinine Clr Calc Pharmacy 38.3 ml/min; Est GFR (African American) 69.9; Est GFR (Non-African American) 60.3
[2020-06-19] MEDS: dexAMETHasone 4 MG in SYRINGE 0 ML IV SCH (10:10)
[2020-06-19] MEDS: D5W AND 1/2NSS + 20MEQ KCL 20 MEQ/1,000 ML BAG IV SCH ×2 (10:10→22:22)
[2020-06-19] MEDS: FAMOTIDINE 20 MG in SYRINGE 3 ML IV SCH ×2 (10:12→22:20)
--- NOTE | 2020-06-19 10:52 | Gastrointestinal Consultation ---
Date of Consultation June 19, 2020 Assessment & Plan (1) Dysphagia: 84-year-old female w/ history of CVA with residual right hemiparesis oropharyngeal dysphagia, PAF anticoagulated on Eliquis, HTN, HLD, CKD stage III baseline creatinine 1.0, recurrent aspiration pneumonia on chronic oxygen therapy 2 L , hx of recurrent UTI -VRE, covid 05/[address] PEG- Seen by NAIL MAKING MACHINE TENDER - High risk for aspiration recommended strict NPO. Of note she had PEG placed in past but this was pulled as she was tolerating PO. Usually anticoagulated with apixaban, but now receiving enoxaparin. Will discuss timing of PEG w/ attending will need AC held. NPO for now. Attg add: I interviewed and examined pt, reviewed chart and labs. Pt s/p recent CVA, unable to tolerate PO. PEG tube tentatively planned for tomorrow. History of Present Illness Reason for Consultation: PEG request Requesting Physician: Manuel Attending Physician: Trace Jackson MD History of Present Illness 84-year-old female w/ history of CVA with residual right hemiparesis oropharyngeal dysphagia, PAF anticoagulated on Eliquis, HTN, HLD, CKD stage III baseline creatinine 1.0, recurrent aspiration pneumonia on chronic oxygen therapy 2 L , hx of recurrent UTI -VRE, covid 05/29, roommate + 05/23 started on empiric dexamethasone 6mg daily starting 05/23. Completed courses of azithromycin and levaquin. who presents to ED secondary to failure to thrive and weakness x10 days - GI asked to evaluate for PEG tube placement. Seen by NAIL MAKING MACHINE TENDER - High risk for aspiration recommended strict NPO. Usually anticoagulated with apixaban, but now receiving enoxaparin. Allergies Allergy/AdvReac Type Severity Reaction Status Date / Time levofloxacin AdvReac SEE BELOW Verified 06/13/20 13:47 Home Medications Medication Instructions Recorded Confirmed Type Desitin Rapid Relief 1 applic TOPICAL HS 08/11/18 06/13/20 History amiodarone 200 mg PO BID 08/11/18 06/13/20 History apixaban 2.5 mg PO BID 08/11/18 06/13/20 History denosumab 60 mg SUBCUT Q6M 08/11/18 06/13/20 History diclofenac sodium 2 g TOPICAL QS 08/11/18 06/13/20 History ergocalciferol (vitamin D2) 50,000 unit PO .Q2WK 08/11/18 06/13/20 History [Vitamin D2] ipratropium-albuterol 2.5 mg INHALATION TID 08/11/18 06/13/20 History metoprolol tartrate 25 mg PO BID 08/11/18 06/13/20 History sertraline 25 mg PO HS 08/11/18 06/13/20 History sodium chloride [Saline Nasal] 2 spray INTRANASAL HS 08/11/18 06/13/20 History atorvastatin 10 mg PO HS 06/13/20 06/13/20 History dexamethasone 6 mg PO DAILY 06/13/20 06/13/20 History famotidine [Pepcid] 20 mg PO BID 06/13/20 06/13/20 History ketoconazole 1 applic TOPICAL SUTH 06/13/20 06/13/20 History levothyroxine 88 mcg PO QAM 06/13/20 06/13/20 History magnesium hydroxide [Milk of 15 ml PO DAILY PRN 06/13/20 06/13/20 History Magnesia] melatonin 1 mg PO HS PRN 06/13/20 06/13/20 History terbinafine HCl 1 applic TOPICAL BID 06/13/20 06/13/20 History zinc oxide 1 applic TOPICAL BID 06/13/20 06/13/20 History Patient History Medical History (Updated 06/19/20 @ 10:54 by BECKY Clarke) Aspiration into airway Aspiration pneumonia (07/30/13) Atrial fibrillation Bronchitis Cerebrovascular disease Chronic respiratory failure with hypoxia, on home O2 therapy CKD (chronic kidney disease), stage III Dementia Depression Dyslipidemia GERD (gastroesophageal reflux disease) History of breast cancer HTN (hypertension) Hypothyroidism Ischemic stroke (02/02/12) Surgical History History of breast surgery Status post mastectomy Family History Other Family history unobtainable due to patient's condition Social History Smoking Status: Former smoker Second Hand Exposure: No; Hx Alcohol Use: No Hx Substance Use: No Preferred Language: Albanian Communication Ability: Impaired Train Operations Manager Required: No Beliefs That Will Affect Care: None marital status: / Current Living Situation: Residential Feels Safe at Home: Yes Assistive Devices: None Review of Systems Constitutional: no fever and no chills Respiratory: no cough and no dyspnea Cardiovascular: no chest pain Gastrointestinal: no abdominal pain, no coffee ground emesis, no hematemesis, no change in bowel habits, no fecal incontinence, no blood in stools and no melena Physical Exam Constitutional: + ill appearing (chronically) and + thin Respiratory: Auscultation: + diminished lung sounds (bilaterally) Gastrointestinal (Abdomen): Percussion/Palpation: abdomen soft; abdomen nontender Skin: no rashes, warm and dry Results & Data ([facility]) Vital Signs (Past 12 Hours) Vital Signs Temp Pulse Pulse Resp BP BP Pulse Ox 06/19/20 07:23 36.5 C 89 18 129/68 96 06/19/20 03:22 71 06/19/20 03:18 36.3 C L 89 18 126/82 94 06/18/20 23:28 36.3 C L 93 H 18 128/80 96 Laboratory Results 06/19/20 06/19/20 Range/Units 09:26 06:56 Sodium 138 (136-145) mmol/L Potassium 3.9 D (3.5-5.1) mmol/L Chloride 110 H (98-107) mmol/L Carbon Dioxide 19 L (21-32) mmol/L Anion Gap 9.0 (3-11) BUN 13 (7-18) mg/dl Creatinine 0.87 (0.6-1.2) mg/dl Est Cr Clr Drug Dosing 38.3 ml/min Est GFR ( Amer) 69.9 Est GFR (Non-Af Amer) 60.3 BUN/Creatinine Ratio 15.3 (10-20) Glucose 90 (70-99) mg/dl Calcium 6.8 L (8.5-10.1) mg/dl
--- NOTE | 2020-06-19 17:03 | Anesthesiology Consultation ---
Date of Service June 19, 2020 Assessment & Plan (1) Encounter for pre-operative examination: Chart Review Chart Review: Acceptable Risk for Surgery and Patient NOT seen in Pre Admission Testing Consults Requested none Additional Notes 84 yp female with COVID pneumonia dx 05/29 s/p decadron therapy with a history of chronic aspiration pna in the setting of prior CVA with residual right hemiparesis and known dysphagia scheduled for PEG tube placement. PMH otherwise significant for PAF anticoagulated on Eliquis, HTN, HLD, CKD stage III, chronic oxygen therapy 2 L. Pt currently receiving enoxaparin. History Surgery Operation Date: 06/19/20 08:45 Proposed Procedures p Esophagogastroduodenoscopy with - Rubens Sim MD s Gastric Tube Placement - Rubens Sim MD Operation Date: 06/20/20 18:45 Proposed Procedures p Esophagogastroduodenoscopy Dr Sweet - Rubens Sim MD s Peg Tube Placement Dr Roney Sim MD Height/Weight Height: 5 ft 7 in Weight: 52.2 kg Allergies Allergy/AdvReac Type Severity Reaction Status Date / Time levofloxacin AdvReac SEE BELOW Verified 06/13/20 13:47 Medications Home Medications Medication Instructions Recorded Confirmed Last Taken Desitin Rapid Relief 1 applic TOPICAL HS 08/11/18 06/13/20 06/12/20 amiodarone 200 mg PO BID 08/11/18 06/13/20 06/13/20 apixaban 2.5 mg PO BID 08/11/18 06/13/20 06/13/20 denosumab 60 mg SUBCUT Q6M 08/11/18 06/13/20 07/25/18 17:00 diclofenac sodium 2 g TOPICAL QS 08/11/18 06/13/20 06/13/20 ergocalciferol (vitamin D2) 50,000 unit PO .Q2WK 08/11/18 06/13/20 06/06/20 [Vitamin D2] ipratropium-albuterol 2.5 mg INHALATION TID 08/11/18 06/13/20 06/13/20 metoprolol tartrate 25 mg PO BID 08/11/18 06/13/20 06/13/20 sertraline 25 mg PO HS 08/11/18 06/13/20 06/12/20 sodium chloride [Saline Nasal] 2 spray INTRANASAL HS 08/11/18 06/13/20 06/12/20 atorvastatin 10 mg PO HS 06/13/20 06/13/20 Unknown dexamethasone 6 mg PO DAILY 06/13/20 06/13/20 Unknown famotidine [Pepcid] 20 mg PO BID 06/13/20 06/13/20 06/13/20 ketoconazole 1 applic TOPICAL SUTH 06/13/20 06/13/20 06/11/20 levothyroxine 88 mcg PO QAM 06/13/20 06/13/20 06/13/20 magnesium hydroxide [Milk of 15 ml PO DAILY PRN 06/13/20 06/13/20 06/12/20 Magnesia] melatonin 1 mg PO HS PRN 06/13/20 06/13/20 06/12/20 terbinafine HCl 1 applic TOPICAL BID 06/13/20 06/13/20 06/13/20 zinc oxide 1 applic TOPICAL BID 06/13/20 06/13/20 06/13/20 Active Medications Generic Name Dose Route Start Last Admin Trade Name Freq PRN Reason Stop Dose Admin Amiodarone HCl 200 mg 06/13/20 21:00 06/17/20 21:31 Amiodarone 200 Mg Tab PO 07/13/20 20:59 Not Given BID REY Apixaban 2.5 mg 06/13/20 21:00 06/14/20 09:07 Apixaban 2.5 Mg Tab PO 07/13/20 20:59 2.5 mg BID REY Administration Enoxaparin Sodium 50 mg 06/14/20 21:00 06/18/20 22:04 Enoxaparin Inj 60 Mg/0.6 Ml Syr SQ 07/14/20 20:59 50 mg Q12H REY Administration Famotidine 20 mg 06/13/20 21:00 06/14/20 09:07 Famotidine 20 Mg Tab PO 07/13/20 20:59 20 mg BID REY Administration Piperacillin Sod/Tazobactam 115 mls @ 28.75 mls/hr 06/14/20 18:00 06/19/20 18:04 Sod 3.375 gm/ Dextrose IV 06/21/20 17:59 28.8 mls/hr Q8H REY Administration Protocol Levothyroxine Sodium 44 mcg/ 2.2 mls @ 2 mls/min 06/15/20 09:00 06/18/20 10:27 Syringe IV 07/15/20 08:59 2 mls/min Q72H REY Administration Protocol Dexamethasone 4 mg/ Syringe 1 mls @ 1 mls/min 06/15/20 09:00 06/19/20 10:10 IV 07/15/20 08:59 1 mls/min DAILY REY Administration Famotidine 20 mg/ Syringe 5 mls @ 2.5 mls/min 06/14/20 21:00 06/19/20 10:12 IV 07/14/20 20:59 2.5 mls/min BID REY Administration Potassium Chloride/Dextrose/Sod Cl 20 meq in 1,000 mls @ 80 mls/hr 06/18/20 08:15 06/19/20 10:10 D5w And 1/2nss + 20meq Kcl IV 07/18/20 08:14 80 mls/hr .[id number] REY Administration Levothyroxine Sodium 88 mcg 06/14/20 06:30 06/14/20 05:34 Levothyroxine Sodium 88 Mcg Tablet PO 07/14/20 06:29 Not Given DAILYBB REY Metoprolol Tartrate 25 mg 06/13/20 21:00 06/14/20 09:07 Metoprolol Tartrate 25 Mg Tab PO 07/13/20 20:59 25 mg BID REY Administration Sertraline HCl 25 mg 06/13/20 21:00 06/17/20 21:31 Sertraline Hcl 50 Mg Tablet PO 07/13/20 20:59 Not Given HS REY Past Medical History Medical History Aspiration into airway Aspiration pneumonia (07/30/13) Atrial fibrillation Bronchitis Cerebrovascular disease Chronic respiratory failure with hypoxia, on home O2 therapy CKD (chronic kidney disease), stage III Dementia Depression Dyslipidemia GERD (gastroesophageal reflux disease) History of breast cancer HTN (hypertension) Hypothyroidism Ischemic stroke (02/02/12) Past Family History Family History Other Family history unobtainable due to patient's condition Past Surgical History Surgical History History of breast surgery Status post mastectomy Social History Smoking Status: Former smoker Hx Alcohol Use: No Hx Substance Use: No Physical Exam Vital Signs Last Vital Signs Temp 36.3 C L 06/19/20 19:23 Pulse 101 H 06/19/20 19:23 Resp 16 06/19/20 19:23 BP 144/86 H 06/19/20 19:23 Pulse Ox 97 06/19/20 19:23 Testing Laboratory Results 06/17/20 09:24 06/19/20 09:26 PT 14.1 Seconds (9.0-12.0) H 06/15/20 08:24 INR 1.4 (0.9-1.1) H 06/15/20 08:24 APTT 31.0 Seconds (21.0-31.0) 06/13/20 12:19 Urine Color Dark Yellow 06/13/20 Unknown Urine Appearance Turbid (Clear) A 06/13/20 Unknown Urine pH >= 9.0 (4.5-7.5) H 06/13/20 Unknown Ur Specific [place] 1.020 (1.000-1.030) 06/13/20 Unknown Urine Protein 4+ (Negative) H 06/13/20 Unknown Urine Glucose (UA) Trace (Negative) H 06/13/20 Unknown Urine Ketones Negative (Negative) 06/13/20 Unknown Urine Nitrite Negative (Negative) 06/13/20 Unknown Ur Leukocyte Esterase 2+ (Negative) H 06/13/20 Unknown Urine WBC (Auto) >30 /hpf (0-5) H 06/13/20 Unknown Urine RBC (Auto) 10-30 /hpf (0-4) H 06/13/20 Unknown U Hyaline Cast (Auto) 1-5 /lpf (0-5) 06/13/20 Unknown U Epithel Cells (Auto) >30 /lpf (0-5) H 06/13/20 Unknown Urine Bacteria (Auto) 4+ (Negative) H 06/13/20 Unknown 06/13/20 15:50 Aerobic Blood Culture - Final Blood No growth in Aerobic bottle after 5 days. Anaerobic Blood Culture - Final 06/13/20 16:00 Aerobic Blood Culture - Final Blood No growth in Aerobic bottle after 5 days. Anaerobic Blood Culture - Final 06/13/20 Unknown Urine Culture - Final Urine,Clean Catch Corynebacterium urealyticum Electrocardiogram Date: 06/14/20 Probable Atrial flutter with controlled ventricular response Rightward axis, Prolonged QT Chest X-Ray Date: 06/13/20 IMPRESSION: 1. Consolidation at the right lung base is likely chronic, with associated volume loss in the right lung and leftward shift of the mediastinum. This is similar in appearance to 08/25/2018. 2. Patchy airspace opacities are seen in the right upper lung. Correlate clinically for evidence of a superimposed infectious/inflammatory pneumonitis. 3. Cardiomegaly without radiographic evidence of congestive failure.
--- NOTE | 2020-06-19 21:11 | Hospitalist Progress Note ---
Date of Service June 19, 2020 Assessment & Plan (1) Pneumonia: Chest x-ray upon admission showed consolidation right lung base and RUL densities. Suspected COVID pneumonia +/- aspiration pneumonia. Continue IV piperacillin / tazobactam and dexamethasone. [employer] eval as discussed below. (2) COVID-19 virus infection: Diagnosed with COVID-19 at [facility] on 05/29/20. Received dexamethasone and antibiotics there. (3) Aspiration into airway: Apparently has chronic aspiration. Underlying cerebrovascular disease. May have aspiration pneumonia (vs chronic changes on chest x-ray). Seen by COTTON AGENT. High risk for aspiration. NPO status recommended. Patient requesting PEG as discussed below. (4) Atrial fibrillation: Rate controlled on metoprolol and amiodarone (although both on hold due to NPO status). Usually anticoagulated with apixaban, but now receiving enoxaparin due to NPO status. Resume apixaban via PEG when OK after procedure. (5) Cerebrovascular disease: S/P ischemic stroke, probably embolic secondary to AF. Residual right hemiparesis, dysarthria, dysphagia. (6) HTN (hypertension): Hemodynamically stable. PO metoprolol held due to NPO status. IV metoprolol PRN. Resume enteral Rx once PEG placed. (7) CKD (chronic kidney disease), stage III: Serum creatinine 0.83. Follow. (8) Hypokalemia: K today = 3.9. Replace as necessary. Follow. (9) Hypothyroidism: Currently receiving levothyroxine intravenously due to NPO status. (10) Protein calorie malnutrition: Severe protein calorie malnutrition. Poor PO intake prior to admission, probably due to COVID-19. Current no oral intake due to aspiration risk. Patient indicates that she would like to proceed with PEG (she has had one before). She declined NG feeding tube while waiting for PEG placement. Discussed PEG with GI; hold anticoagulants for procedure. (11) Decubitus ulcer: Stage III decubitus ulcer left buttock (present on admission). Wound Care Nursing consulted. Avoid pressure. Continue local care. (12) Palliative care encounter: Palliative Medicine consult requested. Patient indicates that she would like to proceed with a PEG if unable to swallow safely; she also indicates that she would like to drink some soda even if it could lead to aspiration. (13) Do not resuscitate status: As noted. (14) DVT prophylaxis: Apixaban held due to NPO status. Received SQ enoxaparin- on hold for PEG. SCD's. (15) Discharge planning issues: Anticipated return to [facility] when medically stable. Admission and Anticipated Discharge Date Admission Date: June 13, 2020 Subjective Recheck for recent COVID-19, pneumonia, and other problems. Patient seen in their room around 1100. No complaints. No fever. Rare cough; no dyspnea. Remains NPO due to aspiration risk. Review of Systems: Constitutional- no fever. Cardiac- no chest pain. Pulmonary- as noted above. GI- formed brown stool today; no nausea, vomiting, melena, hematochezia. - nursing reported some blood on PureWick pad 06/15, none since Otherwise, as noted above. Physical Exam Constitutional: no acute distress Eyes: + anicteric sclerae Respiratory: no respiratory distress Auscultation: + rales (right base) Cardiovascular: Rate/Rhythm: + irregularly irregular Vessels: no JVD Extremities: no calf tenderness and no edema Gastrointestinal (Abdomen): normal bowel sounds, soft, nontender, no hepatosplenomegaly Musculoskeletal: Extremities: + abnormal strength (right hemiparesis); no cyanosis Skin: no rashes, warm and dry Neurologic: Speech / Cognition: + abnormal speech (dysarthria) Psychiatric: Orientation: alert and oriented x 3 (O x 3 except for exact date) Speech: + abnormal rate/rhythm/volume of speech (voice soft with some dysarthria) Results & Data Results & Data ([facility]) Vital Signs (Past 12 Hours) Vital Signs Temp Pulse Pulse Resp BP BP Pulse Ox 06/19/20 19:23 36.3 C L 101 H 16 144/86 H 97 06/19/20 15:25 36.5 C 96 H 20 144/86 H 96 06/19/20 15:08 117 H 06/19/20 11:10 36.5 C 100 H 16 125/75 95 Laboratory Results 06/17/20 09:24 06/19/20 09:26 (1) Pneumonia Laterality: right Lung location: unspecified part of lung Pneumonia type: due to unspecified organism Qualified Code(s): J18.9 - Pneumonia, unspecified organism
[2020-06-20] MEDS: PIPERACILLIN/TAZOBACTAM 3.375 GM in DEXTROSE 5% 100 ML IV SCH ×3 (02:55→19:26)
[2020-06-20 05:52] LABS: Hematocrit (blood only) 44.6 % (37-47); Hemoglobin 14.8 g/dL (12.0-16.0); Mean Corpuscular Hemoglobin 30.2 pg (25-34); Mean Corpuscular Hgb Conc 33.2 g/dL (32-36); Mean Platelet Volume 11.3 fL (7.4-10.4); Platelet Count 105 K/uL (130-400); RDW Coefficient of Variation 16.5 % (11.5-14.5); RDW Standard Deviation 54.7 fL (36.4-46.3); White Blood Count 8.16 K/uL (4.8-10.8)
[2020-06-20 06:09] LABS: BUN Creatinine Ratio 13.1 (10-20); Calcium 7.1 mg/dl (8.5-10.1); Creatinine Clr Calc Pharmacy 38.3 ml/min; Est GFR (African American) 69.9; Est GFR (Non-African American) 60.3; Potassium 4.3 mmol/L (3.5-5.1)
[2020-06-20] MEDS: FAMOTIDINE 20 MG in SYRINGE 3 ML IV SCH (10:10)
[2020-06-20] MEDS: dexAMETHasone 4 MG in SYRINGE 0 ML IV SCH (10:10)
[2020-06-20] MEDS: D5W AND 1/2NSS + 20MEQ KCL 20 MEQ/1,000 ML BAG IV SCH (10:11)
[2020-06-20] MEDS ORDERED: PROPOFOL IV EMULSION 10 MG/ML 20 ML VIAL IV ONE (10:20)
[2020-06-20] MEDS ORDERED: LIDOCAINE HCL 2% 2 ML VIAL/AMP(20MG/ML) INFIL ONE (10:20)
[2020-06-20] MEDS ORDERED: fentaNYL citrate 100 MCG/2 ML VIAL ONE (16:48)
[2020-06-20] MEDS ORDERED: ePHEDrine sulfate 50 MG/ML AMP IV PRN (17:19)
[2020-06-20] MEDS ORDERED: ATROPINE SULFATE 0.1 MG/ML 10ML SYR IV PRN (17:19)
[2020-06-20] MEDS ORDERED: LABETALOL HCL IV 5 MG/ML 20ML IV PRN (17:19)
[2020-06-20] MEDS ORDERED: ONDANSETRON INJ 2 MG/ML 2 ML VIAL IV PRN (17:19)
[2020-06-20] MEDS ORDERED: fentaNYL citrate 100 MCG/2 ML VIAL IV PRN (17:19)
[2020-06-20] MEDS ORDERED: PHENYLEPHRINE 100MCG/ML 5ML SYR IV PRN (17:19)
--- NOTE | 2020-06-20 17:27 | Gastroenterology Progress Note ---
Date of Service June 20, 2020 Assessment & Plan Admission and Anticipated Discharge Date Admission Date: June 13, 2020 Subjective No events since yesterday. Abd soft, without abd wall edema. I discussed r/b/i of PEG tube with pt; pt is agreeable to procedure. Results & Data ([facility]) Vital Signs (Past 12 Hours) Vital Signs Temp Pulse Pulse Resp BP Pulse Ox 06/20/20 15:12 36.5 C 95 H 20 127/70 96 06/20/20 11:08 36.6 C 105 H 20 134/88 96 06/20/20 10:23 83 06/20/20 08:08 36.5 C 90 20 123/78 97
--- NOTE | 2020-06-20 18:02 | GI REPORT ---
Patient Name: Ivette Chin Procedure Date: 06/20/2020 4:38 PM Date of : 1935 Admit Type: Inpatient Age: 84 Gender: Female Attending MD: Rubens Sim MD Procedure: Upper GI endoscopy Providers: Rubnes Sim MD Referring MD: Lebron Rodriguez Md Indications: Place PEG because patient is unable to eat Medicines: See the Anesthesia note for documentation of the administered medications Complications: No immediate complications. Estimated Blood Loss: Estimated blood loss: none. Procedure: Pre-Anesthesia Assessment: - ASA Grade Assessment: IV - A patient with severe systemic disease that is a constant threat to life. After obtaining informed consent, the endoscope was passed under direct vision. Throughout the procedure, the patient's blood pressure, pulse, and oxygen saturations were monitored continuously. The Endoscope was introduced through the mouth, and advanced to the second part of duodenum. The upper GI endoscopy was accomplished without difficulty. The patient tolerated the procedure well. Findings: The examined esophagus was normal. Patchy moderate inflammation characterized by erythema was found in the gastric body. The exam of the stomach was otherwise normal. The examined duodenum was normal. The patient was placed in the supine position for PEG placement. The stomach was insufflated to appose gastric and abdominal ba. A site was located in the incisura with excellent transillumination and manual external pressure for placement. The abdominal wall was marked and prepped in a sterile manner. The area was anesthetized with 5 mL of 0.5% lidocaine. The trocar needle was introduced through the abdominal wall and into the stomach under direct endoscopic view. A snare was introduced through the endoscope and opened in the gastric lumen. The guide wire was passed through the trocar and into the open snare. The snare was closed around the guide wire. The endoscope and snare were removed, pulling the wire out through the mouth. A skin incision was made at the site of needle insertion. The externally removable 24 Fr Lito-Cook gastrostomy tube was lubricated. The G-tube was tied to the guide wire and pulled through the mouth and into the stomach. The trocar needle was removed, and the gastrostomy tube was pulled out from the stomach through the skin. The external bumper was attached to the gastrostomy tube, and the tube was cut to remove the guide wire. The final position of the gastrostomy tube was confirmed by relook endoscopy, and skin marking noted to be 3.5 cm at the external bumper. The final tension and compression of the abdominal wall by the PEG tube and external bumper were checked and revealed that the bumper was moderately tight and mildly deforming the skin. The feeding tube was capped, and the tube site cleaned and dressed. Impression: - Normal esophagus. - Gastritis. - Normal examined duodenum. - An externally removable PEG placement was successfully completed. - No specimens collected. Recommendation: - Please follow the post-PEG recommendations. Rubens Sim M.D. Rubens Sim MD 06/20/2020 6:01:57 PM This report has been signed electronically. Note Initiated On: 06/20/2020 4:38 PM Number of Addenda: 0 I attest to the content of the Intraoperative Record and orders documented therein, exceptions below {[id number]}
--- NOTE | 2020-06-20 18:30 | Anesthesiology Progress Note ---
Date of Service June 20, 2020 Anesthesia Post Procedure Vital Signs Vital Signs: Temp Pulse Pulse Pulse Resp BP BP 06/20/20 18:07 36.7 C 119 H 12 121/83 06/20/20 17:00 36.6 C 105 H 18 144/82 H 06/20/20 15:12 36.5 C 95 H 20 127/70 06/20/20 11:08 36.6 C 105 H 20 134/88 06/20/20 10:23 83 06/20/20 08:08 36.5 C 90 20 123/78 06/20/20 02:54 36.3 C L 93 H 16 136/86 06/20/20 00:00 76 06/19/20 23:16 36.5 C 96 H 18 135/87 06/19/20 19:23 36.3 C L 101 H 16 144/86 H Pulse Ox 06/20/20 18:07 100 06/20/20 17:00 94 06/20/20 15:12 96 06/20/20 11:08 96 06/20/20 10:23 06/20/20 08:08 97 06/20/20 02:54 96 06/20/20 00:00 06/19/20 23:16 96 06/19/20 19:23 97 Transfer of Care Handoff Completed per policy Notes Mental Status: alert / awake / arousable Patient Amnestic to Procedure: Yes Nausea / Vomiting: adequately controlled Pain: adequately controlled Airway Patency, RR, SpO2: stable & adequate BP & HR: stable & adequate Hydration State: stable & adequate Anesthetic Complications: no major complications apparent and Pt Satisfied with anesthetic care Notes: The paitent is awake and her vitals are stable at her baseline.
[2020-06-20] MEDS: SERTRALINE HCL 50 MG TABLET PO SCH (19:42)
[2020-06-20] MEDS: FAMOTIDINE 20 MG TAB PO SCH (19:42)
[2020-06-20] MEDS: AMIODARONE 200 MG TAB PO SCH (19:42)
[2020-06-20] MEDS: METOPROLOL TARTRATE 25 MG TAB PO SCH (19:42)
--- NOTE | 2020-06-20 20:23 | Hospitalist Progress Note ---
Date of Service June 20, 2020 Assessment & Plan (1) Pneumonia: Chest x-ray upon admission showed consolidation right lung base and RUL densities. Was on Dexamethasone for long course prior to admission Suspected COVID pneumonia +/- aspiration pneumonia. Completed 7 day course of Zosyn Taper down Dexamethasone as able [employer] holli done (2) COVID-19 virus infection: Diagnosed with COVID-19 at [facility] on 05/29/20. No benefit for Remdesivir given duration of illness Management as above (3) Aspiration into airway: Apparently has chronic aspiration. Underlying cerebrovascular disease. May have aspiration pneumonia (vs chronic changes on chest x-ray). Seen by [employer]. High risk for aspiration. NPO for now Had PEG placement on 06/20/20 (4) Atrial fibrillation: Rate controlled Continue Metoprolol and amiodarone as able Usually anticoagulated with apixaban, but receiving enoxaparin due to NPO status. Resume apixaban as able (5) Cerebrovascular disease: S/P ischemic stroke, probably embolic secondary to AF. Residual right hemiparesis, dysarthria, dysphagia. (6) HTN (hypertension): Resume PO metoprolol as able IV metoprolol PRN. (7) CKD (chronic kidney disease), stage III: Serum creatinine 0.83. Monitor (8) Hypokalemia: Resolved Monitor (9) Hypothyroidism: Continue levothyroxine (10) Protein calorie malnutrition: Severe protein calorie malnutrition. Poor PO intake prior to admission, probably due to COVID-19. Current no oral intake due to aspiration risk. S/P PEG placement on 06/20 Patient refused NG feeding tube Consult manager personnel selection for Tube feeding once ok with GI (11) Decubitus ulcer: Stage III decubitus ulcer left buttock (present on admission). Wound Care Nursing consulted. Avoid pressure. Continue local care. (12) Palliative care encounter: Palliative Medicine consult requested. (13) Do not resuscitate status: As noted. (14) DVT prophylaxis: Resume Apixaban as able Received SQ enoxaparin while NPO SCDs (15) Discharge planning issues: Expect to return to [facility] when medically stable. Admission and Anticipated Discharge Date Admission Date: June 13, 2020 Subjective Patient is seen and examined at bedside Planned for PEG placement today Denies chest pain, dyspnea, abd pain, nausea Offers no complaints Review of Systems Review of Systems: All systems reviewed & are unremarkable except as noted in HPI & below Physical Exam 2 Physical Exam: Physical Exam: Vitals signs as noted above General Appearance:Thin, Frail, no apparent distress Head: normocephalic, Atraumatic, +Cold Sore Eyes: normal inspection, EOMI Neck: supple, Trachea midline Respiratory/Chest: Decreased Coarse breath sounds Cardiovascular: Irregularly irregular, No murmur Abdomen/GI:Soft, Non tender, Bowel sounds present Extremities/Musculoskelatal:normal inspection, B/L UE edema Neurologic/Psych:Alert, awake, Right sided chronic paresis from prior CVA Skin: normal color, warm Results & Data Results & Data ([facility]) Vital Signs (Past 12 Hours) Vital Signs Temp Pulse Pulse Pulse Resp BP Pulse Ox 06/20/20 19:30 36.6 C 107 H 20 132/80 99 06/20/20 19:00 36.6 C 99 H 20 134/74 100 06/20/20 18:35 36.6 C 99 H 16 128/87 100 06/20/20 18:25 109 H 14 122/96 100 06/20/20 18:15 109 H 20 120/78 100 06/20/20 18:07 36.7 C 119 H 12 121/83 100 06/20/20 17:00 36.6 C 105 H 18 144/82 H 94 06/20/20 15:12 36.5 C 95 H 20 127/70 96 06/20/20 11:08 36.6 C 105 H 20 134/88 96 06/20/20 10:23 83 Laboratory Results Short CBC 06/20/20 Range/Units 05:44 WBC 8.16 (4.8-10.8) K/uL Hgb 14.8 (12.0-16.0) g/dL Hct 44.6 (37-47) % Plt Count 105 L (130-400) K/uL BMP 06/20/20 05:44 Sodium 138 Potassium 4.3 Chloride 108 H Carbon Dioxide 24 BUN 11 Creatinine 0.87 Glucose 107 H Calcium 7.1 L (1) Pneumonia Laterality: right Lung location: unspecified part of lung Pneumonia type: due to unspecified organism Qualified Code(s): J18.9 - Pneumonia, unspecified organism
[2020-06-21] MEDS ORDERED: XOPENEX/ATROVENT 1.25mg/0.5MG NEB COMBO NEB PRN (04:07)
[2020-06-21] MEDS ORDERED: LEVALBUTEROL 1.25MG/0.5ML NEB INH PRN (04:15)
[2020-06-21] MEDS ORDERED: IPRATROPIUM BROMIDE NEB SOLN 0.02% 2.5 ML VIAL INH PRN (04:15)
[2020-06-21] MEDS: LEVOTHYROXINE SODIUM 88 MCG TABLET PO SCH (05:45)
[2020-06-21] MEDS: AMIODARONE 200 MG TAB PO SCH ×2 (08:11→21:30)
[2020-06-21] MEDS: METOPROLOL TARTRATE 25 MG TAB PO SCH ×2 (08:11→21:31)
[2020-06-21] MEDS: FAMOTIDINE 20 MG TAB PO SCH ×2 (08:12→21:31)
[2020-06-21] MEDS: dexAMETHasone 2 MG in SYRINGE 0 ML IV SCH (10:13)
[2020-06-21] MEDS ORDERED: FIBERSOURCE HN 1.2 CAL 1000 ML BAG GT SCH (12:30)
[2020-06-21] MEDS ORDERED: Nursing to Pharmacy Communication SCH (13:00)
--- NOTE | 2020-06-21 15:39 | Palliative Care Progress Note ---
Date of Service June 21, 2020 Assessment & Plan (1) Palliative care encounter: Ivette does not recall our conversation last week about the PEG tube but nods her head when I review our discussion. She understands that she will be at chronic risk of aspiration, pneumonia and if she eats or drinks by mouth. She also understands that there is still some risk of aspiration with PEG tube. She also understands that she will without nutrition. I talked to her about the conflict with her living well and she tells me that "things change". She still wants to be DNR/DNI but also says, "I want to live". We discussed her quality of life and whether continuing to live at her current functional status was quality for her. She tells me that it is and repeats, "I want to live". I talked with her about my discussion with her nephew who was surprised by her decision, based on her living will, but supports her decision to have PEG. We did discuss a point in time when PEG will not be beneficial for her and she understands that "I'll take my chances." (2) Cachexia: (3) Chronic pulmonary aspiration: Admission and Anticipated Discharge Date Admission Date: June 13, 2020 Subjective Asked to see Ivette to discuss feeding tube. Per nursing, she has been expressing doubt about feedings through tube. Her voice is very weak but she is able to express her thoughts. Review of Systems Review of Systems: Thayer Symptom Assessment Scale Pain 0/3 Dyspnea 0/3 Nausea 0/3 Fatigue 2/3 Palliative Performance Score 30% Physical Exam Constitutional: + thin and + frail appearing Respiratory: normal respiratory effort; no labored breathing audible tracheal secretions Gastrointestinal (Abdomen): PEG tube Psychiatric: Orientation: alert and oriented x 3 Insight: good insight Judgement intact Results & Data ([facility]) Vital Signs (Past 12 Hours) Vital Signs Temp Pulse Resp BP Pulse Ox 06/21/20 15:26 98.2 F 117 H 18 109/71 91 06/21/20 11:19 97.5 F L 108 H 18 126/67 92 06/21/20 07:32 97.7 F 90 18 150/84 H 93 PG Care Time/CCT Total # of Minutes Spent Total Time Spent with Patient: Total time spent is greater than 50% in coordination of care (as documented) at patient's floor/unit and/or counseling patient: Total time spent is 40 minutes with more than 50% of time spent on discussing prognosis, goals of care and artificial nutrition. Coding Level of Care Code 56487 Subseq Hosp Care Lvl 3 Diagnoses Palliative care encounter Z51.5 Cachexia R64 Chronic pulmonary aspiration T17.908A Time Spent (min) 45
[2020-06-21] MEDS: THIAMINE HCL 100 MG in SYRINGE 9 ML IV SCH ×2 (16:01→21:32)
[2020-06-21] MEDS: MULTI VIT W/MINERALS LIQUID 15 ML UDP PEG SCH (16:01)
--- NOTE | 2020-06-21 19:23 | Hospitalist Progress Note ---
Date of Service June 21, 2020 Assessment & Plan (1) Pneumonia: Chest x-ray upon admission showed consolidation right lung base and RUL densities. Was on Dexamethasone for long course prior to admission Suspected COVID pneumonia +/- aspiration pneumonia. Completed 7 day course of Zosyn Taper down Dexamethasone as able CLEAN UP WORKER holli done (2) COVID-19 virus infection: Diagnosed with COVID-19 at [facility] on 05/29/20. No benefit for Remdesivir given duration of illness Management as above (3) Aspiration into airway: Apparently has chronic aspiration. Underlying cerebrovascular disease. May have aspiration pneumonia (vs chronic changes on chest x-ray). Seen by CLEAN UP WORKER. High risk for aspiration. NPO suggested Had PEG placement on 06/20/20 Started on Tube feeds (4) Atrial fibrillation: Rate controlled Continue Metoprolol and amiodarone Usually anticoagulated with apixaban, but receiving enoxaparin due to NPO status. Resume apixaban tomorrow (5) Cerebrovascular disease: S/P ischemic stroke, probably embolic secondary to AF. Residual right hemiparesis, dysarthria, dysphagia. (6) HTN (hypertension): Continue metoprolol IV metoprolol PRN. (7) CKD (chronic kidney disease), stage III: Serum creatinine 0.83. Monitor (8) Hypokalemia: Resolved Monitor (9) Hypothyroidism: Continue levothyroxine (10) Protein calorie malnutrition: Severe protein calorie malnutrition. Poor PO intake prior to admission, probably due to COVID-19. Current no oral intake due to aspiration risk. S/P PEG placement on 06/20 Patient refused NG feeding tube Continue tube feeds Metal Coater Operator consulted Added on thiamine, monitor for refeeding syndrome (11) Decubitus ulcer: Stage III decubitus ulcer left buttock (present on admission). Wound Care Nursing consulted. Avoid pressure. Continue local care. (12) Palliative care encounter: Palliative Medicine consult requested. (13) Do not resuscitate status: As noted. (14) DVT prophylaxis: Resume Apixaban SCDs (15) Discharge planning issues: Expect to return to [facility] when medically stable. Admission and Anticipated Discharge Date Admission Date: June 13, 2020 Subjective Patient is seen and examined at bedside Denies any pain at the PEG tube site Refused tube feeds earlier today but later agreed Denies chest pain, dyspnea, abd pain, nausea No other complaints Review of Systems Review of Systems: All systems reviewed & are unremarkable except as noted in HPI & below Physical Exam Physical Exam: Physical Exam: Vitals signs as noted above General Appearance:Thin, Frail, no apparent distress Head: normocephalic, Atraumatic, +Cold Sore Eyes: normal inspection, EOMI Neck: supple, Trachea midline Respiratory/Chest: Decreased coarse breath sounds Cardiovascular: Irregularly irregular, No murmur Abdomen/GI:Soft, Non tender, Bowel sounds present Extremities/Musculoskelatal:normal inspection, B/L UE edema Neurologic/Psych:Alert, awake, Right sided chronic paresis from prior CVA Skin: normal color, warm Results & Data Results & Data ([facility]) Vital Signs (Past 12 Hours) Vital Signs Temp Pulse Pulse Resp BP Pulse Ox 06/21/20 16:00 104 H 06/21/20 15:26 36.8 C 117 H 18 109/71 91 06/21/20 11:19 36.4 C L 108 H 18 126/67 92 06/21/20 07:32 36.5 C 90 18 150/84 H 93 (1) Pneumonia Laterality: right Lung location: unspecified part of lung Pneumonia type: due to unspecified organism Qualified Code(s): J18.9 - Pneumonia, unspecified organism
[2020-06-21] MEDS ORDERED: LEVALBUTEROL TARTRATE 15 GM HFA.AER.AD INH STA (20:50)
[2020-06-21] MEDS ORDERED: methylPREDNISolone 20 MG in SYRINGE 0 ML IV STA (20:53)
[2020-06-21] MEDS: CHLORHEXIDINE GLUCONATE 0.12% 480 ML MT SCH (21:31)
[2020-06-21] MEDS: SERTRALINE HCL 50 MG TABLET PO SCH (21:33)
[2020-06-21] MEDS ORDERED: AMPICILLIN/SULBACTAM SOD 3,000 MG in 0.9 % SODIUM CHLORIDE 100 ML IV STA (23:43)
--- NOTE | 2020-06-21 23:43 | Communication Note ---
Date of Service: June 21, 2020 Made aware by RN of wet rattling cough symptoms. Concern for aspiration as per RN. O2 sats 89 as per RN. Chest x-ray as per my interpretation infiltrate right. AP Aspiration pneumonia Unasyn Will relay to AM provider.
[2020-06-22] MEDS ORDERED: AMPICILLIN/SULBACTAM CONSULT ACTIVE PRN (00:03)
[2020-06-22 06:09] LABS: Calcium 7.7 mg/dl (8.5-10.1); Creatinine Clr Calc Pharmacy 37.8 ml/min; Est GFR (African American) 64.5; Est GFR (Non-African American) 55.6
--- NOTE | 2020-06-22 07:50 | XRay Report ---
XR chest 1V portable HISTORY: cough COMPARISON: Chest 06/13/2020. FINDINGS: Hazy right base airspace opacity, unchanged. The left lung is clear. Rotated study. The hea rt is normal in size. No pneumothorax. Small right pleural effusion persists. IMPRESSION: No change in the right basilar airspace opacity and small right pleural effusion. This likely represe nts a pneumonia. ACT 112: Negative or not required by law. Electronically signed by: Joon Cleveland M.D. 06/22/2020 7:49 AM
[2020-06-22] MEDS ORDERED: AMPICILLIN/SULBACTAM SOD 3,000 MG in 0.9 % SODIUM CHLORIDE 100 ML IV SCH (08:00)
[2020-06-22] MEDS: THIAMINE HCL 100 MG in SYRINGE 9 ML IV SCH (08:14)
[2020-06-22] MEDS: MULTI VIT W/MINERALS LIQUID 15 ML UDP PEG SCH (08:14)
[2020-06-22] MEDS: LEVOTHYROXINE SODIUM 88 MCG TABLET PO SCH (08:14)
[2020-06-22] MEDS: FAMOTIDINE 20 MG TAB PO SCH (08:15)
[2020-06-22] MEDS: AMIODARONE 200 MG TAB PO SCH (08:15)
[2020-06-22] MEDS: dexAMETHasone 2 MG in SYRINGE 0 ML IV SCH (08:16)
[2020-06-22] MEDS: METOPROLOL TARTRATE 25 MG TAB PO SCH (08:16)
[2020-06-22] MEDS: CHLORHEXIDINE GLUCONATE 0.12% 480 ML MT SCH (08:17)
--- NOTE | 2020-06-22 08:43 | XRay Report ---
XR chest 1V portable HISTORY: Pneumonia. COVID follow up. Cough. COMPARISON: Chest 06/21/2020. FINDINGS: Right basilar airspace opacity and a small right pleural effusion remain unchanged. Slightl y rotated study. No pneumothorax. The left lung is clear. The heart remains borderline enlarged. IMPRESSION: No change in the small right pleural effusion and right lower lobe airspace opacity consistent with a pneumonia. ACT 112: Negative or not required by law. Electronically signed by: Joon Cleveland M.D. 06/22/2020 8:42 AM
[2020-06-22] MEDS ORDERED: APIXABAN 2.5 MG TAB PO SCH (09:00)
[2020-06-22] MEDS ORDERED: LORazepam 0.5 MG/1 ML VIAL IV PRN (11:28)
[2020-06-22] MEDS ORDERED: ONDANSETRON INJ 2 MG/ML 2 ML VIAL IV PRN (11:28)
[2020-06-22] MEDS ORDERED: LORazepam 0.5 MG TAB PO PRN (11:28)
--- NOTE | 2020-06-22 11:32 | Palliative Care Progress Note ---
Date of Service June 22, 2020 Assessment & Plan (1) Palliative care encounter: I spoke with the patient who is very cachectic, frail with a frail voice. Patient was awake, alert and oriented. She was able to tell me that "I am done. I am tired". I asked her to elaborate on that and she said "I want to ". In reviewing previous conversations with her nephew along with the chronic illness that has poor prognosis, I support a full transition to comfort measures only. The patients nephew is in full agreement as well as this is documented clearly in her living will that she does not want oysterman life sustaining measures taken. At this time, her tube feedings are appearing to cause more risk than benefits with the audible secretions I hear. I discontinued all non comfort focus medications, all blood draws, all vital signs. I ordered Roxanol 5 mg PO Q1 PRN, along with Robinul. Should nursing see to be using Roxanol Q1 hour, low threshold to start a morphine infusion. I granted visitation for the patients nephew, Taye, and cleared this with Dr. Everett. Life expectancy likely hours to a few days. Collaborated above with Dr. Rodriguez. (2) Cachexia: Currently NPO with aspiration risk. Plan for PEG placement and enteral feeding. (3) Chronic pulmonary aspiration: Admission and Anticipated Discharge Date Admission Date: June 13, 2020 Subjective Patient seen at bedside. She is awake, having audible secretions. see a/p for further details Review of Systems Review of Systems: [place] System Assessment Scale - Revised Tiredness: 3/3 SOB: 2/3 Anxiety: 0/3 PPS: 10% Physical Exam Constitutional: + thin, + cachectic and + frail appearing Respiratory: normal respiratory effort and + uses accessory muscles; no labored breathing Psychiatric: Orientation: alert and oriented x 3 Insight: good insight Results & Data ([facility]) Vital Signs (Past 12 Hours) Vital Signs Temp Pulse Pulse Resp BP Pulse Ox 06/22/20 07:29 36.3 C L 98 H 18 142/85 H 92 06/22/20 04:00 36.2 C L 86 18 138/77 91 06/22/20 00:00 108 H PG Care Time/CCT Total # of Minutes Spent Total Time Spent with Patient: Total time spent is greater than 50% in coordination of care (as documented) at patient's floor/unit and/or counseling patient: 45 Coding Level of Care Code 39819 Subseq Hosp Care Lvl 3 Diagnoses Palliative care encounter Z51.5 Cachexia R64 Chronic pulmonary aspiration T17.908A Time Spent (min) 45 Time Spent Midlevel Total time spent 45 minutes with > 50% of that time spent assessing the patient, discussing goals of care with patient and nephew, and collaborating with IDT
[2020-06-22] MEDS: MoRPHine SULFATE 5 MG/0.25 ML UDP PO PRN ×2 (13:04→16:38)
[2020-06-22] MEDS: GLYCOPYRROLATE 0.2 MG/ML VIAL IV PRN (16:39)
[2020-06-22] MEDS: SCOPOLAMINE 1 MG TDSY TD SCH (17:52)
--- NOTE | 2020-06-22 18:52 | Hospitalist Progress Note ---
Date of Service June 22, 2020 Assessment & Plan (1) Pneumonia: Chest x-ray upon admission showed consolidation right lung base and RUL densities. Was on Dexamethasone for long course prior to admission Suspected COVID pneumonia +/- aspiration pneumonia. Completed 7 day course of Zosyn Taper downed Dexamethasone LOG DRIVER holli done Transition to comfort measures only as per patient's wishes Patient's son--POA agrees with current management, understands current medical condition Appreciate palliative care input (2) COVID-19 virus infection: Diagnosed with COVID-19 at [facility] on 05/29/20. No benefit for Remdesivir given duration of illness Management as above (3) Aspiration into airway: Apparently has chronic aspiration. Underlying cerebrovascular disease. May have aspiration pneumonia (vs chronic changes on chest x-ray). Seen by LOG DRIVER. High risk for aspiration. NPO suggested Had PEG placement on 06/20/20 Refused Tube feeds On comfort measures only (4) Atrial fibrillation: Rate controlled Was on Metoprolol and amiodarone Usually anticoagulated with apixaban, but receiving enoxaparin On comfort measures only (5) Cerebrovascular disease: S/P ischemic stroke, probably embolic secondary to AF. Residual right hemiparesis, dysarthria, dysphagia. (6) HTN (hypertension): Was on metoprolol (7) CKD (chronic kidney disease), stage III: Serum creatinine 0.83. (8) Hypokalemia: Resolved (9) Hypothyroidism: Was on levothyroxine (10) Protein calorie malnutrition: Severe protein calorie malnutrition. Poor PO intake prior to admission, probably due to COVID-19. Current no oral intake due to aspiration risk. S/P PEG placement on 06/20 Patient refused NG feeding tube Continue tube feeds Beveling Machine Operator consulted Added on thiamine, monitor for refeeding syndrome Currently on comfort measures only (11) Decubitus ulcer: Stage III decubitus ulcer left buttock (present on admission). Wound Care Nursing consulted. Avoid pressure. Continue local care. (12) Palliative care encounter: Appreciate palliative care input (13) Do not resuscitate status: As noted. (14) DVT prophylaxis: SCDs (15) Discharge planning issues: Expect to return to [facility] as able Admission and Anticipated Discharge Date Admission Date: June 13, 2020 Subjective Patient is seen and examined at bedside Patient's Son at bedside Patient preferred to be transitioned to comfort care Discussed with Palliative Care today Refused Tube feeds Denies chest pain, dyspnea, abd pain, nausea No distress during my exam Review of Systems Review of Systems: All systems reviewed & are unremarkable except as noted in HPI & below Physical Exam Physical Exam: Physical Exam: Vitals signs as noted above General Appearance:Thin, Frail, no apparent distress Head: normocephalic, Atraumatic, +Cold Sore Eyes: normal inspection, EOMI Neck: supple, Trachea midline Respiratory/Chest: Decreased coarse breath sounds Cardiovascular: Irregularly irregular, No murmur Abdomen/GI:Soft, Non tender, Bowel sounds present Extremities/Musculoskelatal:normal inspection, B/L UE edema Neurologic/Psych:Alert, awake, Right sided chronic paresis from prior CVA Skin: normal color, warm Results & Data Results & Data ([facility]) Vital Signs (Past 12 Hours) Vital Signs Temp Pulse Pulse Resp BP Pulse Ox 06/22/20 08:00 91 H 06/22/20 07:29 36.3 C L 98 H 18 142/85 H 92 Laboratory Results BMP 06/22/20 06/22/20 05:10 06:37 Sodium 136 Potassium 4.3 Chloride 108 H Carbon Dioxide 24 BUN 21 H D Creatinine 0.93 Glucose 119 H Calcium 7.7 L (1) Pneumonia Laterality: right Lung location: unspecified part of lung Pneumonia type: due to unspecified organism Qualified Code(s): J18.9 - Pneumonia, unspecified organism
[2020-06-23] MEDS: SCOPOLAMINE 1 MG TDSY TD SCH (00:30)
[2020-06-23] MEDS: CHECK SCOPOLAMINE PATCH PLACEMENT SCH ×3 (00:30→16:12)
[2020-06-23] MEDS: GLYCOPYRROLATE 0.2 MG/ML VIAL IV PRN ×2 (16:33→20:33)
--- NOTE | 2020-06-23 17:27 | Hospitalist Progress Note ---
Date of Service June 23, 2020 Assessment & Plan (1) Pneumonia: Chest x-ray upon admission showed consolidation right lung base and RUL densities. Was on Dexamethasone for long course prior to admission Suspected COVID pneumonia +/- aspiration pneumonia. Completed 7 day course of Zosyn Taper downed Dexamethasone PRODUCT GRADER holli done Transition to comfort measures only as per patient's wishes Patient's son--POA agrees with current management, understands current medical condition Appreciate palliative care input Continue medications PRN to keep patient comfortable (2) COVID-19 virus infection: Diagnosed with COVID-19 at [facility] on 05/29/20. No benefit for Remdesivir given duration of illness Management as above (3) Aspiration into airway: Apparently has chronic aspiration. Underlying cerebrovascular disease. May have aspiration pneumonia (vs chronic changes on chest x-ray). Seen by PRODUCT GRADER. High risk for aspiration. NPO suggested Had PEG placement on 06/20/20 Refused Tube feeds On comfort measures only (4) Atrial fibrillation: Rate controlled Was on Metoprolol and amiodarone Usually anticoagulated with apixaban, but receiving enoxaparin On comfort measures only (5) Cerebrovascular disease: S/P ischemic stroke, probably embolic secondary to AF. Residual right hemiparesis, dysarthria, dysphagia. (6) HTN (hypertension): Was on metoprolol (7) CKD (chronic kidney disease), stage III: Serum creatinine 0.83. (8) Hypokalemia: Resolved (9) Hypothyroidism: Was on levothyroxine (10) Protein calorie malnutrition: Severe protein calorie malnutrition. Poor PO intake prior to admission, probably due to COVID-19. Current no oral intake due to aspiration risk. S/P PEG placement on 06/20 Patient refused NG feeding tube Continue tube feeds Maintenance Pipefitter consulted Added on thiamine, monitor for refeeding syndrome Currently on comfort measures only (11) Decubitus ulcer: Stage III decubitus ulcer left buttock (present on admission). Wound Care Nursing consulted. Avoid pressure. Continue local care. (12) Palliative care encounter: Appreciate palliative care input (13) Do not resuscitate status: As noted. (14) DVT prophylaxis: SCDs (15) Discharge planning issues: To be determined Admission and Anticipated Discharge Date Admission Date: June 13, 2020 Subjective Patient is seen and examined at bedside No distress on my exam Denies chest pain, dyspnea Patient's Son at bedside On comfort measures only Review of Systems Review of Systems: All systems reviewed & are unremarkable except as noted in HPI & below Physical Exam Physical Exam: Physical Exam: Vitals signs as noted above General Appearance:Thin, Frail, no apparent distress Head: normocephalic, Atraumatic, +Cold Sore Eyes: normal inspection, EOMI Neck: supple, Trachea midline Respiratory/Chest: Decreased coarse breath sounds Cardiovascular: Irregularly irregular, No murmur Abdomen/GI:Soft, Non tender, Bowel sounds present Extremities/Musculoskelatal:normal inspection, B/L UE edema Neurologic/Psych:Alert, awake, Right sided chronic paresis from prior CVA Skin: normal color, warm (1) Pneumonia Laterality: right Lung location: unspecified part of lung Pneumonia type: due to unspecified organism Qualified Code(s): J18.9 - Pneumonia, unspecified organism
[2020-06-23] MEDS: ATROPINE SULFATE 1% OP SOLN 5 ML BTL SL PRN ×2 (18:47→20:50)
--- NOTE | 2020-06-24 07:40 | Discharge Summary ---
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 Patient resides at [facility]. Remained tested positive on 05/23 for coronavirus. Subsequently patient tested positive on 05/29 via antigen test. Due to retesting positive on 05/23 she was started on dexamethasone therapy. Due to comorbidities she was also started on azithromycin 5-day course on 05/29. This was completed on 06/02. Chest x-ray continued to show pneumonia and therefore she was started on Levaquin 750 mg. This was reduced to 250 mg secondary to renal dysfunction. She continues to remain on dexamethasone although patient continues to decline from functional standpoint. 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 She has also had increased renal function and therefore was sent to ER. Patient has underlying dementia and unable to obtain history from patient. History was obtained from ED provider and nursing facility. Facility states she had no documented fever or worsening respiratory status. She is chronically on 2 L of O2 during the day and 3 L at bedtime. She does have recurrent UTI - VRE. In ED pt remained hemodynamically stable, although she was intermittently tachycardia and one time BP on 96/69. Lab abnormalities notable for wbc 15.79k, h/h 15.6/48.4, bun 52, cr 1.66, ast 67, alt 113, TSH 8.2, free t4 1.15, UA + leuks, epis, bacturia. CXR: RUL patchy airspace opacities, Chronic R lung base consolidation, likely scaring In ED received IV zosyn and IVF. Principal Diagnosis COVID 19 Pneumonia Possible Aspiration Pneumonia Cerebrovascular disease CKD III Severe protein calorie malnutrition Discharge Data Allergies Allergy/AdvReac Type Severity Reaction Status Date / Time levofloxacin AdvReac SEE BELOW Verified 06/13/20 13:47 Consultations 06/13/20 14:11 ED Decision to Admit Stat 06/13/20 16:31 Consult Case Management - Discharge Planning Routine 06/14/20 15:06 Consult Palliative Care Routine 06/19/20 08:50 Consult Gastroenterology Routine 06/22/20 11:28 Consult Case Management - Discharge Planning Routine Consult Palliative Care Routine Procedures Performed Operation Date: 06/20/20 08:50 Actual Procedures p Esophagogastroduodenoscopy - Rubens Sim MD s with PEG tube placement - Rubens Sim MD Operation Date: 06/20/20 18:45 <No data on this case meets the specified criteria> CXR: 1. Consolidation at the right lung base is likely chronic, with associated volume loss in the right lung and leftward shift of the mediastinum. This is similar in appearance to 08/25/2018. 2. Patchy airspace opacities are seen in the right upper lung. Correlate clinically for evidence of a superimposed infectious/inflammatory pneumonitis. 3. Cardiomegaly without radiographic evidence of congestive failure. Hospital Course (1) Pneumonia: Chest x-ray upon admission showed consolidation right lung base and RUL densities. Was on Dexamethasone for long course prior to admission Suspected COVID pneumonia +/- aspiration pneumonia. Completed 7 day course of Zosyn Taper downed Dexamethasone TOWBOAT OPERATOR eval done Transition to comfort measures only as per patient's wishes Patient's son--POA agrees with current management, understands current medical condition Appreciate palliative care input Continue medications PRN to keep patient comfortable PATIENT WHILE ON COMFORT MEASURES ONLY OVERNIGHT ON 06/23/20. FAMILY AWARE. (2) COVID-19 virus infection: Diagnosed with COVID-19 at [facility] on 05/29/20. No benefit for Remdesivir given duration of illness Management as above (3) Aspiration into airway: Apparently has chronic aspiration. Underlying cerebrovascular disease. May have aspiration pneumonia (vs chronic changes on chest x-ray). Seen by TOWBOAT OPERATOR. High risk for aspiration. NPO suggested Had PEG placement on 06/20/20 Refused Tube feeds On comfort measures only (4) Atrial fibrillation: Rate controlled Was on Metoprolol and amiodarone Usually anticoagulated with apixaban, but receiving enoxaparin On comfort measures only (5) Cerebrovascular disease: S/P ischemic stroke, probably embolic secondary to AF. Residual right hemiparesis, dysarthria, dysphagia. (6) HTN (hypertension): Was on metoprolol (7) CKD (chronic kidney disease), stage III: Serum creatinine 0.83. (8) Hypokalemia: Resolved (9) Hypothyroidism: Was on levothyroxine (10) Protein calorie malnutrition: Severe protein calorie malnutrition. Poor PO intake prior to admission, probably due to COVID-19. Current no oral intake due to aspiration risk. S/P PEG placement on 06/20 Patient refused NG feeding tube Continue tube feeds Procurement Professional consulted Added on thiamine, monitor for refeeding syndrome Currently on comfort measures only (11) Decubitus ulcer: Stage III decubitus ulcer left buttock (present on admission). Wound Care Nursing consulted. Avoid pressure. Continue local care. (12) Palliative care encounter: Appreciate palliative care input (13) Do not resuscitate status: As noted. (14) DVT prophylaxis: SCDs (15) Discharge planning issues: Total Time Total Time Spent Total Time Spent (In Minutes): 20 minutes Discharge Plan Discharge Items Patient Disposition: Discharge Diagnosis: COVID 19 Pneumonia Possible Aspiration Pneumonia Cerebrovascular disease CKD III Severe protein calorie malnutrition Addtl Attending Provider Instructions: Family updated
== END 2020-06-23 23:59 | disposition expired | DRG 177 ==
LOC: ED 11:34 → SUATTDRO 14:53 → 2W 14:53